=== PATIENT | female | born 1940 | race Caucasian/White ===

== ENCOUNTER → 2017-03-25 | Outpatient (CLI) | payer MEDICARE ==
--- NOTE | 2017-03-25 11:58 | CARD ---
APPROVED REPORT EXAM: Two-dimensional and M-mode echocardiogram with Doppler and color Doppler. Other Information Quality : Average Rhythm : NSR INDICATION Abnormal ECG 2D DIMENSIONS RVDd2.3 (2.9-3.5cm)Left Atrium(2D)3.5 (1.6-4.0cm) IVSd1.2 (0.7-1.1cm)Aortic Root(2D)2.7 (2.0-3.7cm) LVDd4.7 (3.9-5.9cm)LVOT Diameter2.1 (1.8-2.4cm) PWd1.2 (0.7-1.1cm)LVDs2.8 (2.5-4.0cm) FS (%) 39.9 %SV72.9 ml LVEF(%)70.4 (>50%) Aortic Valve AoV Peak Chris.193.1cm/sAoV VTI41.2cm AO Peak GR.14.9mmHgLVOT Peak Chris.139.1cm/s LVOT VTI 30.51cmAO Mean GR.9mmHg NELLIE (VMAX)2.41sv5UXX (VTI)2.46cm2 Mitral Valve MV E Kmrvzpmn357.4cm/sMV DECEL XSOA234ri MV A Qeqvfhtq039.7cm/sMV E Mean Gr.6mmHg MV NLE279otE/A Ratio0.7 MV A [id number] (PHT)2.21cm2 TDI E/Lateral E'23.4E/Medial E'22.4 Pulmonary Valve PV Peak Mqspbzck21.7cm/sPV Peak Grad.3mmHg RVOT VTI13.1cm Tricuspid Valve TR P. Rtxkvpyr453dq/sRAP QXSQMAZM4olPw TR Peak Gr.10dxWpGXIH18klYf LEFT VENTRICLE The left ventricle is normal size. There is borderline concentric left ventricular hypertrophy. Left ventricle systolic function is normal. The Ejection Fraction is 65-70%. There is normal LV segmental wall motion. Tissue Doppler imaging reveals mild left ventricular diastolic dysfunction. RIGHT VENTRICLE The right ventricle is normal size. The right ventricular systolic function is normal. ATRIA The left atrium size is normal. The right atrium size is normal. The interatrial septum is intact wit h no evidence for an atrial septal defect or patent foramen ovale as noted on 2-D or Doppler imaging. AORTIC VALVE The aortic valve is moderately sclerotic. Doppler and Color Flow revealed no significant aortic regur gitation. There is no significant aortic valvular stenosis. MITRAL VALVE Mitral annular calcification is moderate. The mitral valve leaflets are thickened and calcified. The posterior leaflet is not well visualized but appears to be fixed. There is mild mitral valve stenosis . Doppler and Color Flow revealed mild mitral regurgitation. TRICUSPID VALVE The tricuspid valve is normal in structure and function. Doppler and Color Flow revealed mild tricusp id regurgitation. The PA pressure was estimated at 31 mmHg. There is no tricuspid valve stenosis. PULMONIC VALVE Doppler and Color Flow revealed no pulmonic valvular regurgitation. There is no pulmonic valvular gin nosis. GREAT VESSELS The aortic root is normal in size. Normal pulmonary venous flow (Doppler). The IVC is normal in size and collapses >50% with inspiration. PERICARDIAL EFFUSION There is no evidence of significant pericardial effusion. Critical Notification Critical Value: No <Conclusion> There is borderline concentric left ventricular hypertrophy. Left ventricle systolic function is normal. The Ejection Fraction is 65-70%. There is mild mitral valve stenosis. (MG 5.8 mm Hg)
== END | disposition home or self-care (01) ==
LOC: ECHO 09:41
PROVIDERS: ATTEND Internal Medicine Cardiovascular Disease
DX: I08.1 Rheumatic disorders of both mitral and tricuspid valves (principal)
CPT/HCPCS: 93306

== ENCOUNTER → 2017-04-14 | Outpatient (CLI) | payer MEDICARE ==
[2017-04-14] VITALS (12 sets, daily range): BP systolic 84–146; BP diastolic 53–69
[~2017-04-14] VITALS: Ht 172.7 cm; Wt 64.9 kg
[~2017-04-14] MED LIST: AMLO10TA2 PO; ASPI325T4 PO; BIMA2.5D EACHEYE; BRIM5DRO3 OS; CALC-112 PO; CHOL100013 PO; CLOPIDOGREL BISULFATE 75 MG TABLET ONE; CLOPIDOGREL BISULFATE 75 MG TABLET PO ONE; CLOPIDOGREL BISULFATE 75 MG TABLET PO SCH; CONTRAST GIVEN MC PRN; HEPARIN for ARTERIAL LINE 1,500 ML ONE; HEPARIN for IV BOLUS 10,000 UNIT/10 ML VIAL. IV ONE; HEPARIN for IV BOLUS 10,000 UNIT/10 ML VIAL. ONE; IOHEXOL 300 MG/ML 100ML VIAL. IART ONE; IOHEXOL 300 MG/ML 100ML VIAL. ONE; IV NORMAL SALINE 1000ML BAG 1,000 ML IV SCH; LIDOCAINE 1% / SOD BICARB 8.4% 20 ML VIAL. IJ ONE; MIDAZOLAM HCL/PF 5 MG/5 ML VIAL. IV ONE; MIDAZOLAM HCL/PF 5 MG/5 ML VIAL. ONE; RALO60TA PO; SIMV80TA3 PO; TERB250T8 PO; fentaNYL PF VIAL 250 MCG/5 ML VIAL IV ONE; fentaNYL PF VIAL 250 MCG/5 ML VIAL ONE
[2017-04-14 07:29] LABS: BASO % 1 % (0-3); EOS % 1 % (0-3); HEMATOCRIT 43.3 % (36.0-47.0); HEMOGLOBIN 14.4 g/dL (12.0-15.5); LYMPH # 0.7 x10^3/uL (1.0-4.8); LYMPH % 23 % (24-48); MEAN CORPUSCULAR HEMOGLOBIN 31 pg (25-35); MEAN CORPUSCULAR HGB CONC 33 g/dL (31-37); MEAN CORPUSCULAR VOLUME 95 fL (79-100); MONO % 10 % (0-9); NEUT % 65 % (31-73); PLATELET COUNT 187 x10^3/uL (140-400); RED BLOOD COUNT 4.58 x10^6/uL (3.50-5.40); RED CELL DISTRIBUTION WIDTH 14.1 % (11.5-14.5); WHITE BLOOD COUNT 3.2 x10^3/uL (4.0-11.0)
[2017-04-14 07:36] LABS: CALCIUM 9.6 mg/dL (8.5-10.1); CREATININE 0.7 mg/dL (0.6-1.0); GFR 81.8; POTASSIUM 3.2 mmol/L (3.5-5.1)
[2017-04-14 07:38] LABS: INR 0.9 (0.8-1.1); PROTHROMBIN TIME PATIENT 11.9 SEC (11.7-14.0)
--- NOTE | 2017-04-14 11:00 | PDOC ---
MODERATE SEDATION ASSESSMENT RISKS/ALTERNATIVES Risks/Alternatives Risks and alternatives of this type of sedation and procedure discussed with: RISK/ALTERNATIVES: Patient H & P ON CHART H & P H & P on chart and reviewed for co-morbid conditions and appropriate labs. H&P ON CHART: Yes STATUS PREG STATUS ASSESSED: N/A MEDS/ALLERGIES REVIEWED Meds/Allergies Reviewed Medications and Allergies including time and route of recently administered narcotics and sedatives. MEDS/ALLERGIES REVIEWED: Yes ASA RATING ASA RATING: II AIRWAY ASSESSMENT Airway Assessment Airway patency, oral function limitations, presence of caps, crowns, dentures, partials, and ability to extend neck assessed. AIRWAY ASSESSMENT: Yes MALLAMPATI SCORE MALLAMPATI SCORE: II PRE-SEDATION ASSESSMENT PRE-SEDATION ASSESSMENT: Yes EVA DAWSON MD April 14, 2017 11:00
--- NOTE | 2017-04-14 11:02 | PDOC1 ---
History and Physical Date of Procedure Date of Admission 04/14/17 Procedure Procedure Arch + unilateral cervicocephalic angio +/- innominate artery stent placement Indication Indication 76 YO female smoker with known cerebrovascular disease, s/p prior left carotid endarterectomy as well as intracranial aneurysm clipping. Surveillance duplex Doppler and CTA studies revealed significant abnormalities, including severe origin innominate artery calcific stenosis, as well as possible hemodynamically significant, calcific, proximal right ICA stenosis. Diagnostic arteriogram with possible innominate artery stent placement has been requested by Vascular Surgery. Past Medical History Past Medical History See Nursing Pre Procedure PMH Past Surgical History Past Surgical History See Nursing Pre Procedure PSH Current Medications Current Medications Current Medications Sodium Chloride 1,000 ml @ 100 mls/hr Q10H IV Last administered on 04/14/17 08:20; Start 04/14/17 at 07:11; Stop 04/15/17 at 07:10 Iohexol (Omnipaque 300 Mg/ml) 100 ml STK-MED ONCE .ROUTE ; Start 04/14/17 at 07: 48; Stop 04/14/17 at 07:49; Status DC Lidocaine/Sodium Bicarbonate (Buffered Lidocaine 1%) 20 ml STK-MED ONCE IJ ; Start 04/14/17 at 07:49; Stop 04/14/17 at 07:50; Status DC Heparin Sodium/ Sodium Chloride 1,500 ml @ As Directed STK-MED ONCE .ROUTE ; Start 04/14/17 at 07:49; Stop 04/14/17 at 07:50; Status DC Midazolam HCl (Versed) 5 mg STK-MED ONCE .ROUTE ; Start 04/14/17 at 08:14; Stop 04/14/17 at 08:15; Status DC Fentanyl Citrate (Fentanyl 5ml Vial) 250 mcg STK-MED ONCE .ROUTE ; Start at 08:14; Stop 04/14/17 at 08:15; Status DC Heparin Sodium (Porcine) (Heparin Sodium) 10,000 unit STK-MED ONCE .ROUTE ; Start 04/14/17 at 08:27; Stop 04/14/17 at 08:28; Status DC Heparin Sodium/ Sodium Chloride 1,000 unit 1X ONCE IART Last administered on t 10:26; Start 04/14/17 at 08:45; Stop 04/14/17 at 08:46; Status DC Lidocaine/Sodium Bicarbonate (Buffered Lidocaine 1%) 20 ml 1X ONCE IJ Last administered on 04/14/17 10:26; Start 04/14/17 at 08:45; Stop 04/14/17 at 08:46 ; Status DC Midazolam HCl (Versed) 5 mg 1X ONCE IV Last administered on 04/14/17 10:25; Start 04/14/17 at 08:45; Stop 04/14/17 at 08:46; Status DC Fentanyl Citrate (Fentanyl 5ml Vial) 250 mcg 1X ONCE IV Last administered on 10:25; Start 04/14/17 at 08:45; Stop 04/14/17 at 08:46; Status DC Iohexol (Omnipaque 300 Mg/ml) 100 ml 1X ONCE IART Last administered on 10:25; Start 04/14/17 at 08:45; Stop 04/14/17 at 08:46; Status DC Info (Do NOT chart on this entry -- for MONITORING) 1 each PRN DAILY PRN MC SEE COMMENTS; Start 04/14/17 at 08:45; Stop 04/16/17 at 08:44 Heparin Sodium (Porcine) (Heparin Sodium) 5,000 unit 1X ONCE IV Last administered on 04/14/17 10:27; Start 04/14/17 at 10:30; Stop 04/14/17 at 10:31 ; Status DC Clopidogrel Bisulfate (Plavix) 600 mg 1X ONCE PO Last administered on 10:28; Start 04/14/17 at 10:30; Stop 04/14/17 at 10:31; Status DC Clopidogrel Bisulfate (Plavix) 75 mg STK-MED ONCE .ROUTE ; Start 04/14/17 at 10: 23; Stop 04/14/17 at 10:24; Status DC Active Scripts Active Reported Lumigan (Bimatoprost) 2.5 Ml Drops 1 Drop EACHEYE QHS Simvastatin 80 Mg Tablet 80 Mg PO HS Terbinafine Hcl 250 Mg Tablet 1 Tab PO DAILY Vitamin D (Cholecalciferol (Vitamin D3)) 1,000 Unit Capsule 2,000 Unit PO DAILY Citracal + D Er Tablet (Calcium Carb & Cit/Vitamin D3) 1 Each Tablet.er 1 Each PO DAILY Alphagan P (Brimonidine Tartrate) 5 Ml Drops 1 Drop OS BID Aspirin 325 Mg Tablet 1 Tab PO DAILY Evista (Raloxifene Hcl) 60 Mg Tablet 60 Mg PO DAILY Amlodipine Besylate 10 Mg Tablet 10 Mg PO DAILY Allergies Allergies: Coded Allergies: No Known Drug Allergies (Unverified , 04/14/17) Physical Exam Vital Signs Vital Signs Date Time Temp Pulse Resp B/P (MAP) Pulse Ox O2 Delivery O2 Flow Rate FiO2 04/14/17 10:25 16 96 Nasal Cannula 2.0 04/14/17 07:43 98.1 65 84/59 (67) 98.1 Lungs: Clear to auscultation Heart: Regular rate Psych/Mental Status: Mental status NL Vascular +/- right [employer]ICER pulse. 1+ right brachial artery pulse. No right carotid bruit. Diagnostic Data/Imaging Images [facility] arch + selective carotid angio from 2006 reviewed. [facility] carotid duplex Doppler from 03/17/17 reviewed. [facility] CTA neck/head from 03/28/17 reviewed. Assessment Assessment 76 YO smoker with progression in her known cerebrovascular disease. CTA suggests severe to critical calcific narrowing at origin innominate artery. CTA + Duplex Doppler suggests possible significant calcific narrowing at rt carotid bifurcation. Problems: Plan Plan Diagnostic arteriogram (arch + right subclavian artery + right CCA injections) + /- origin innominate artery stenting. EVA DAWSON MD April 14, 2017 11:02
--- NOTE | 2017-04-14 12:59 | RAD ---
Post interventional procedure targeted to the amount artery. Grayscale color Doppler and spectral imaging was performed. Examination was targeted to the right common carotid and right carotid bifurcation. The color Doppler images do not suggest significant turbulence. Moderately heavy plaquing is seen at the carotid bifurcation. The common carotid waveform and velocities are normal. The internal carotid waveform and velocities are also normal. The external carotid has a normal appearance. The vertebral is patent and demonstrates normal directional flow. The subclavian artery is unremarkable. IMPRESSION: Plaquing at the right carotid.. No evidence of hemodynamically significant stenosis. Stenosis 0-50%. Note: Stenosis calculations for CT, MR and conventional angiography are based upon determination of the distal ICA diameter in accordance with the NASCET methodology. Stenosis calculations for doppler studies are derived from validated velocity criteria which are known to correlate with NASCET methodology of determining stenosis.
--- NOTE | 2017-04-14 13:06 | PDOC ---
Exam Manager Proposal Manager Proposal Sita Kennel Attendant Kennel Attendant Orlando Carrington Pre-Procedure Diagnosis Pre-Procedure Diagnosis 76 YO female smoker, with known cerebrovascular disease, s/p left carotid endarterectomy + intracranial aneurysm clipping. 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 Diagnostic arteriogram +/- innominate artery stent placement has been requested by Vascular Surgery. Post-Procedure Diagnosis Post-Procedure Diagnosis See Radiology report. Critical calcific innominate artery stenosis confirmed, followed by stenting. Only mild calcific stenosis at right carotid bifurcation. Due to difficulty crossing right iliac inflow vessels, limited imaging of pelvis was performed. Pre-Mynx SEGAL images of right groin were also performed. Those images revealed severe calcific right KOBY disease + severe right TECHNICAL PLANNER narrowing resulting from very large eccentric calcific plaque occupying majority of TECHNICAL PLANNER lumen. Procedure Performed Procedure Performed Aortic arch + selective right subclavian and CCA injections. Origin innominate artery stent placement. Limited angio pelvis and rt groin. Type of Anesthesia Type of Anesthesia Local + Mod sedation Estimated Blood Loss EBL: 25 cc Condition of Patient Condition of Patient Stable. No apparent complication. No neuro changes. Disposition Disposition May discharge home form [facility] post recovery, if no problems. F/u with Dr Rodrigues. Full report to follow. Rx DAPT for 3 months followed by ASA for life. Have requested a baseline post innominate artery stent duplex Doppler prior to patient discharge. EVA DAWSON MD April 14, 2017 13:06
--- NOTE | 2017-04-15 08:20 | RAD ---
Aortic arch injection with with right subclavian and right common carotid artery injections Origin innominate artery stent placement Indication: 76-year-old smoker with known cerebrovascular disease, status post previous left carotid endarterectomy and previous intracranial aneurysm clipping. Follow-up surveillance duplex Doppler ultrasound and subsequent CTA head and neck revealed findings consistent with severe calcific origin innominate artery stenosis, as well as at least moderate proximal right ICA stenosis. Diagnostic cervicocephalic arteriogram, with probable innominate artery stenting, has been requested by vascular surgery. Fluoroscopy time: 43.1 minutes Kerma-area Product: 197 Gycm2 Contrast material: 150 cc Omnipaque 300 Anesthesia: 116 minutes moderate sedation was provided utilizing a total of 3 mg Versed and 150 mcg fentanyl, IV. The patient was appropriately monitored by a qualified independent observer throughout the time of moderate sedation. Consent: The procedure was explained in its entirety to the patient and/or the patient's designated technical service representative by a member of the treatment team. This included a discussion of risks and benefits and commonly accepted alternatives to the procedure, as well as expected consequences of no treatment at all. Discussion of risks included, but was not limited to, those that are most frequent and those that are rare, but possibly severe or life-threatening, as well as the possibility of unforeseen complications. Sterility: All elements of maximal sterile barrier technique, hand hygiene, skin preparation, and, if ultrasound was used, sterile ultrasound technique were followed. Stenosis calculations for CT, MR and conventional angiography are based upon determination of the distal ICA diameter in accordance with the NASCET methodology. Stenosis calculations for doppler studies are derived from validated velocity criteria which are known to correlate with the NASCET methology of determining stenosis. Procedure: Informed consent was obtained from the patient. She was placed supine on the angiography table. Preliminary ultrasound examination of right groin revealed partial patency of right common femoral artery, which was documented with a single hard copy ultrasound image. Right groin was then prepped and draped in the usual sterile fashion, utilizing all elements of maximal sterile barrier technique, as described above. Moderate sedation was provided with IV Versed and fentanyl. Using aseptic technique, local anesthesia, direct sterile ultrasound guidance, and the micropuncture system, a 5 [place] right common femoral artery sheath was successfully introduced. A 4 [facility] [place] angled glide catheter was then inserted through the right groin sheath and was successfully directed over a Glidewire across severe calcific right common iliac artery disease into abdominal aorta. The angled glide catheter was then removed over a Terumo advantage guidewire, which was positioned with its tip within mid descending thoracic aorta. The 5 [facility] right common femoral artery sheath was then exchanged over the advantage wire for a 6 [facility] [place]ian 65 cm long destination sheath, which was successfully advanced into proximal descending thoracic aorta, utilizing fluoroscopic guidance. Arch injection: A 5 [facility] Omni Flush catheter was advanced through the destination sheath and was positioned within ascending thoracic aorta. Omnipaque 300 was injected and arch DSA images were obtained in the ZACHARY projection. 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 There is no aortic dissection or aneurysm. Origins of left subclavian artery and left common carotid artery from aortic arch are widely patent. Extensive calcific plaquing produces severe narrowing of innominate artery origin of greater than 90%, with poststenotic dilatation. Left subclavian artery appears widely patent, with brisk, antegrade flow within large caliber left vertebral artery. Left common carotid artery is also widely patent, as is visualized postoperative proximal left ICA. There is sluggish antegrade flow within patent right subclavian and common carotid arteries. Right vertebral artery is not well seen. Innominate artery stent placement: A 5 [facility] Velarde 2 catheter was inserted through the destination sheath, and was very carefully advanced over a Glidewire across the severe, calcific origin innominate artery stenosis into proximal right subclavian artery. The Glidewire was then exchanged for a Terumo advantage guidewire, which was successfully advanced peripherally into mid right brachial artery, utilizing fluoroscopic control. The Velarde 2 catheter was then removed over the advantage guidewire. A 4 mm x 40 mm Cordis extreme PERIANESTHESIA RN balloon was then advanced through the destination sheath over the advantage wire, and was utilized to perform preliminary balloon dilatation of proximal innominate artery to a peak pressure of 15 porter. The 4 mm PERIANESTHESIA RN balloon was then exchanged for a 7 mm x 29 mm Cordis Mary balloon expandable stent, which was advanced over the advantage wire and was very carefully positioned and deployed across the densely calcific innominate artery origin stenosis. Post dilatation of this stent was then performed initially utilizing an 8 mm x 40 mm Powerflex PERIANESTHESIA RN balloon, inflated to a peak pressure of 12 porter. Final post dilatation of proximal end of the stent was then performed utilizing a 10 mm x 20 mm Powerflex PERIANESTHESIA RN balloon, inflated to a peak pressure of [address] [facility] Omni Flush catheter was reintroduced into ascending thoracic aorta. Omnipaque 300 was injected and post stent arch DSA images were obtained. Those images revealed significant angiographic improvement in caliber of innominate artery, with now brisk antegrade flow through right subclavian and common carotid arteries. Right subclavian artery injection: A 5 [facility] H1 catheter was advanced over a Glidewire through the innominate artery stent into left subclavian artery. Omnipaque 300 was injected and DSA images were obtained. Findings: No significant right subclavian artery stenosis is demonstrated. Patent right vertebral artery is now well visualized, post innominate artery stenting, and shows normal antegrade flow. Right axillary artery and visualized proximal right brachial artery are widely patent. Right CCA injection: The 5 [facility]ian H1 catheter was then carefully advanced into distal right common carotid artery over a Glidewire. Omnipaque 300 was injected and cervical DSA images were obtained in lateral and SEGAL projections, followed by intracranial DSA images in AP and lateral projections. Findings: Eccentric, calcific plaquing at right carotid bifurcation produces only mild, 20-30% narrowing at distal right CCA and ICA origin. Cervical right ICA is otherwise widely patent. No significant narrowing is identified within petrous, cavernous, or supraclinoid right ICA. Intracranial images revealed brisk and satisfactory contrast opacification of right middle and anterior cerebral arteries, without major vessel occlusion. Postoperative changes of previous aneurysm clipping are noted. No new aneurysm is seen. Patient tolerated procedure well without apparent complication. Hemostasis was achieved at the right groin puncture site utilizing the Mynx closure system. Baseline post innominate artery stent right carotid duplex Doppler ultrasound was obtained in CV observation, prior to patient discharge. Impression: 1. 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 2. Widely patent right subclavian artery, with quaker of normal antegrade flow within right vertebral artery, following innominate artery stenting. 3. Eccentric calcific plaquing produces only mild, 20-30% stenosis at right carotid bifurcation. 4. Postoperative changes of previous intracranial aneurysm clipping are noted. No new aneurysm was demonstrated within right anterior intracranial circulation. 5. A baseline post innominate artery stent placement right carotid duplex Doppler ultrasound was performed prior to patient discharge, and was compared to the recent [facility] carotid Doppler done 03/17/2017. There has been significant interval improvement in Doppler waveforms and velocities within right common and internal carotid arteries, as well as quaker of normal antegrade flow within right vertebral artery.
== END | disposition home or self-care (01) ==
LOC: INTRAD 06:51
PROVIDERS: ATTEND Surgery Vascular Surgery
DX: I65.23 Occlusion and stenosis of bilateral carotid arteries (principal); F17.200 Nicotine dependence, unspecified, uncomplicated; I73.9 Peripheral vascular disease, unspecified; Z96.642 Presence of left artificial hip joint; Z72.89 Other problems related to lifestyle
CPT/HCPCS: 36223; 36225; 36415; 37236; 76937; 80048; 85027; 85610; 93882; C1713; C1758; C1760; C1769; C1892; C1894; J2250; J3010; J7030; Q9967; G0269

== ENCOUNTER 2018-12-12 08:01 | Outpatient (CLI) | payer MEDICARE ==
[~2018-12-12] VITALS: Ht 170.2 cm; Wt 62.6 kg
[2018-12-12] VITALS (15 sets, daily range): BP systolic 93–167; BP diastolic 48–71
[~2018-12-12 08:01] MED LIST changes: -AMLO10TA2 PO; +AMLO10TA8 PO; -ASPI325T4 PO; +ASPI325T8 PO; -CLOPIDOGREL BISULFATE 75 MG TABLET ONE; -CLOPIDOGREL BISULFATE 75 MG TABLET PO ONE; -CLOPIDOGREL BISULFATE 75 MG TABLET PO SCH; -CONTRAST GIVEN MC PRN; -HEPARIN for ARTERIAL LINE 1,500 ML ONE; -HEPARIN for IV BOLUS 10,000 UNIT/10 ML VIAL. IV ONE; -HEPARIN for IV BOLUS 10,000 UNIT/10 ML VIAL. ONE; -IOHEXOL 300 MG/ML 100ML VIAL. IART ONE; -IOHEXOL 300 MG/ML 100ML VIAL. ONE; -IV NORMAL SALINE 1000ML BAG 1,000 ML IV SCH; -LIDOCAINE 1% / SOD BICARB 8.4% 20 ML VIAL. IJ ONE; -MIDAZOLAM HCL/PF 5 MG/5 ML VIAL. IV ONE; -MIDAZOLAM HCL/PF 5 MG/5 ML VIAL. ONE; +SIMV80TA17 PO; -SIMV80TA3 PO; +TERB250T11 PO; -TERB250T8 PO; -fentaNYL PF VIAL 250 MCG/5 ML VIAL IV ONE; -fentaNYL PF VIAL 250 MCG/5 ML VIAL ONE
[2018-12-12 08:32] LABS: HEMATOCRIT 41.8 % (36.0-47.0); HEMOGLOBIN 14.6 g/dL (12.0-15.5); RED BLOOD COUNT 4.68 x10^6/uL (3.50-5.40); RED CELL DISTRIBUTION WIDTH 15.4 % (11.5-14.5); WHITE BLOOD COUNT 4.5 x10^3/uL (4.0-11.0)
[2018-12-12 08:43] LABS: CALCIUM 9.4 mg/dL (8.5-10.1); CREATININE 0.8 mg/dL (0.6-1.0); GFR 69.7; POTASSIUM 3.8 mmol/L (3.5-5.1)
[2018-12-12 08:45] LABS: PROTHROMBIN TIME PATIENT 12.9 SEC (11.7-14.0)
[2018-12-12] MEDS ORDERED: CLOP75TA PO (08:51)
[2018-12-12] MEDS ORDERED: HEPARIN for ARTERIAL LINE 1,500 ML ONE (09:39)
[2018-12-12] MEDS ORDERED: LIDOCAINE 1% Multi-Dose 20 ML VIAL. ONE (09:39)
[2018-12-12] MEDS ORDERED: IODIXANOL 320 MG/ML 100 ML VIAL. ONE (09:39)
[2018-12-12] MEDS ORDERED: MIDAZOLAM HCL/PF 5 MG/5 ML VIAL. ONE (09:56)
[2018-12-12] MEDS ORDERED: fentaNYL PF VIAL 250 MCG/5 ML VIAL ONE (09:56)
[2018-12-12] MEDS ORDERED: HEPARIN for IV BOLUS 10,000 UNIT/10 ML VIAL. ONE (10:07)
[2018-12-12] MEDS: IODIXANOL 320 MG/ML 100 ML VIAL. IART ONE (11:52)
[2018-12-12] MEDS: fentaNYL PF VIAL 250 MCG/5 ML VIAL IV ONE (11:53)
[2018-12-12] MEDS: MIDAZOLAM HCL/PF 5 MG/5 ML VIAL. IV ONE (11:53)
[2018-12-12] MEDS: HEPARIN for IV BOLUS 10,000 UNIT/10 ML VIAL. IV ONE (11:54)
--- NOTE | 2018-12-12 14:14 | CARD ---
MR#: [id number] Date of Study: 12/12/2018 Ordering Physician: SANYA DELONG, Referring Physician: SANYA DELONG, Tech: RT Trever (R) APPROVED REPORT Patient StatusOUT-PATIENT Jewel Sawyer: RT Trever (R) Procedure(s) performed: 90 MIN MODERATE SEDATION Supravalvular Aortogram Right subclavian angiography Aortogram with bilateral peripheral run-off. HISTORY The patient is a 78 year-old female with a history of : peripheral vascular disease. INDICATION FOR PROCEDURE The indication(s) include : Bilateral claudication. PROCEDURE NARRATIVE INDICATION: Bilateral right greater than left claudication with known history of PAD. CONSENT: After explaining the risks and benefits of the procedure and alternatives, informed consent was obtai сергей. The patient was brought electively to the cardiac catheterization lab in a fasting state. A jay eout was performed confirming the patient's name, date of , procedure, and site of procedure. A ll necessary personnel were wearing the appropriate protective equipment and radiation monitor device s. (See nursing notes for medications administered). The right groin was sterilely prepped and drap ed in the usual fashion. ACCESS: The left groin was infiltrated with 10 mL of 2% lidocaine for subcutaneous anesthesia. Next, a 5Fr sh eath was placed in the LCFA via the modified Seldinger Technique. DIAGNOSTIC ANGIOGRAPHY: Next, advancement of a JR4 guide catheter was difficult due to a very tortuous left common iliac and external iliac vessels. Therefore, a Glidewire was used to navigate the tortuosity and ultimately a J R4 catheter was placed in the ascending aorta. Next, selective angiography of the right innominate ar roxie stent was performed. Due to the stent protruding partially into the aortic lumen and due to the crushing of the stent near the proximal segment with deformation it was difficult to obtain a true se lective angiogram. Nonetheless digital subtraction angiography was performed with adequate images. [place] bsequently, a pigtail catheter was placed in the descending aorta and aortography was performed. Atte mpts to cross over to the right common iliac artery were extremely difficult. A crossover catheter, O mni Flush catheter as well as a SOS catheter were unable to selectively engage the vessel. Ultimately , a pro-water wire was able to be free wired into the right common femoral artery. Attempts to advanc e a 4 Romansh angled glide catheter were unsuccessful. Ultimately, a Glidewire was able to be placed i n the right common femoral artery. Unfortunately, despite manipulation a 0.[address] was also unable to be advanced distally. There was likely critical stenosis involving the right c ommon iliac which actually caused difficulty with removal of the catheter. Finally, multiple Dsa imag es were obtained with a pigtail catheter placed just above the iliac bifurcation and a runoff was per formed to the ankle level. FINDINGS: *The entire aortic vascular tree is heavily calcified and tortuous. Right inominate artery: There is a prior stent that appears deformed, likely crushed or fractured wit h approximately 90% stenosis. Abdominal aorta: No significant disease with distal small, less than 4 mm in size. RCIA: Severe calcified 95% stenosis with severe post-stenotic dilation. REIA: Heavily calcifed with 70% stenosis. RCFA: Heavily calcified with 80% stenosis. RSFA: Distal SFA with heavily calcified 80% stenosis. RPOP: Heavily calcified 80% stenosis. RTP trunk: No significant disease. RATA: No significant disease. LCIA: Severe tortuosity with 40-50% stenosis. CELESTE: No significant disease. LCFA: Heavily calcified with 80% stenosis. LSFA: Distal SFA with heavily calcified 80% stenosis. LPOP: Heavily calcified 80% stenosis. LTP trunk: No significant disease. RAUL: No significant disease. Conclusion 1. Severe PAD with near occluded right innominate artery stent. 2. Severe right common iliac, right and left MANAGER AEROSPACE and SFA/POP disease. Recommendations -Will discuss with vascular surgery regarding treatment of lower extremity claudication and right sub clavian steal. -She would likely best benefit from endovascular treatment of the right iliac disease with bilateral MANAGER AEROSPACE endarterectomies and consideration of future SFA/POP treatment prn. -Currently asymptomatic from right inominate artery disease, continue medical mgmt. -Discussed smoking sessation and aggressive medical therapy. Signed by : Sanya Delong, Electronically Approved : 12/12/2018 14:12:24
--- NOTE | 2018-12-12 17:05 | NUR ---
Discharge Note: FIORDALIZA PRICE Discharge instructions and discharge home medications reviewed with Patient and a copy given. All questions have been answered and understanding verbalized. Dressing clean, dry, and intact. Pt denies pain. The following instructions and handouts were given: angiography, CAD, post moderate sedation, groin site care. Discontinued lines and drains: peripheral IV Patient discharged to home with friend via private vehicle .
== END 2018-12-12 17:00 | disposition home or self-care (01) ==
LOC: CCL 08:01
PROVIDERS: ATTEND Internal Medicine Cardiovascular Disease
DX: I70.213 Atherosclerosis of native arteries of extremities with intermittent claudication, bilateral legs (principal)
CPT/HCPCS: 36215; 36415; 75630; 75710; 80048; 85027; 85347; 85610; 99152; 99153; C1769; C1887; C1892; J1644; J2250; J3010; Q9967; 93567

== ENCOUNTER 2019-08-06 17:44 | Inpatient (IN) | payer MEDICARE ==
[~2019-08-06] VITALS: Ht 170.2 cm; Wt 69.4 kg
[~2019-08-06 17:44] MED LIST changes: +ASPI-630 PO; +CLOP75TA PO
[2019-08-06 23:30] VITALS: BP 121/72
[2019-08-06 23:45] VITALS: BP 134/81
[2019-08-06 23:59] VITALS: BP 139/84
[2019-08-07] VITALS (25 sets, daily range): BP systolic 91–139; BP diastolic 24–85
[2019-08-07] MEDS ORDERED: HYDROcodone/APAP 5/325MG 1 TAB TABLET PO PRN (00:30)
[2019-08-07] MEDS ORDERED: ALBUTEROL SULFATE 2.5 MG/3 ML NEBU. NEB PRN (00:30)
[2019-08-07] MEDS: ACETAMINOPHEN 325 MG TABLET. PO PRN ×2 (01:56→13:11)
[2019-08-07] MEDS ORDERED: FLU VAX QS 2019-20 (36MOS+)/PF 0.5 ML SYRINGE. VAX IM ONE (02:00)
[2019-08-07] MEDS ORDERED: ATORVASTATIN CALCIUM 40 MG TABLET. PO ONE (02:00)
[2019-08-07] MEDS ORDERED: methylPREDNISolone SOD SUCC PF 40 MG/ML VIAL. IV SCH (06:00)
[2019-08-07 07:38] LABS: ALBUMIN 2.6 g/dL (3.4-5.0); ALBUMIN/GLOBULIN RATIO 0.8 (1.0-1.7); CREATININE 0.9 mg/dL (0.6-1.0); GFR 60.9; MAGNESIUM 1.8 mg/dL (1.8-2.4); TOTAL BILIRUBIN 0.2 mg/dL (0.2-1.0); TOTAL PROTEIN 5.7 g/dL (6.4-8.2)
[2019-08-07] MEDS: IPRATRPIUM/ALBUTEROL 0.5/2.5MG 3 ML NEBU. NEB SCH ×4 (07:39→19:00)
[2019-08-07] MEDS: amLODIPine BESYLATE 10 MG TABLET PO SCH (08:33)
[2019-08-07] MEDS: CALCIUM CARB/VIT D3 500/200 TABLET. PO SCH (08:33)
[2019-08-07] MEDS: ASPIRIN CHEWABLE 81 MG TABLET. PO SCH (08:33)
[2019-08-07] MEDS: BRIMONIDINE 0.2% OPHTH SOLUTION 5ML BOTTLE. OS SCH ×2 (08:34→21:16)
[2019-08-07] MEDS: NICOTINE 14MG PATCH. TD SCH (08:34)
--- NOTE | 2019-08-07 08:55 | PDOC2 ---
ELLY MAJANO KITCHEN MECHANIC 08/07/19 0854: CARDIAC CONSULT DATE OF CONSULT Date of Consult DATE: 08/07/19 TIME: 08:42 REASON FOR CONSULT Reason for Consult: Pulmonary edema REFERRING PHYSICIAN Referring Physician: CHF SOURCE Source: Chart review, Patient HISTORY OF PRESENT ILLNESS HISTORY OF PRESENT ILLNESS This is a 78 yo female admitted for complains of leg swelling and weakness. Reports that she just got discharged from rehab about 3-4 weeks ago and lives alone. No falls or any recent injury. Her legs have been progressively getting weak and swollen in the last 3 days. Also + for HAN. She has COPD and CAD and continues to smoke tobacco. Denies any palpitations nor chest pain. Reports no nausea or vomiting. BP has been controlled so far and tells me that her Na intake is controlled and no over hydration. She does drink small amount of bourbon every night. PAST MEDICAL HISTORY Cardiovascular: CAD, HTN, Hyperlipidemia, Aortic stenosis, Other (PAD LE and carotids) Pulmonary: Asthma, COPD CENTRAL NERVOUS SYSTEM: Other (SAHIL aneurysm repair) Heme/Onc: Anemia NOS (requiring transfusion) Psych: No pertinent hx Musculoskeletal: Osteoarthritis ENT: Other (glaucoma) Renal/: No pertinent hx Endocrine: Osteopenia Dermatology: No pertinent hx PAST SURGICAL HISTORY Past Surgical History Bilateral femoral endarterectomies 05/2019, right groin debridement with sartorius muscle flap coverage 06/08, subclavian artery stent placement Past Surgical History: Appendectomy, Tonsillectomy, Other (left carotid endarterectomy; anterior cerebral aneurysm repair) FAMILY HISTORY Family History noncontributory SOCIAL HISTORY Smoke: No ALCOHOL: none Lives: Senior Living CURRENT MEDICATIONS CURRENT MEDICATIONS Current Medications Medications (Trade) Dose Ordered Sig/Melissa Route PRN Reason Start Time Stop Time Status Last Admin Dose Admin Amlodipine Besylate (Norvasc) 10 mg DAILY PO 08/07/19 09:00 08/07/19 08:34 Aspirin (Children'S Aspirin) 81 mg DAILY PO 08/07/19 09:00 08/07/19 08:34 Brimonidine Tartrate (Alphagan) 1 drop BID OS 08/07/19 09:00 08/07/19 08:34 Calcium/Vitamin D (Oscal D 500mg/ 200uts) 1 tab DAILYWBKFT PO 08/07/19 08:00 08/07/19 08:34 Levofloxacin/ Dextrose 100 ml @ 100 mls/hr QHS IV 08/07/19 01:00 08/07/19 01:09 Acetaminophen (Tylenol) 650 mg PRN Q6HRS PRN PO MILD PAIN / TEMP 08/07/19 00:30 08/07/19 02:01 Methylprednisolone Sodium Succinate (SOLU-Medrol 40MG VIAL) 60 mg Q8HRS IV 08/07/19 06:00 08/07/19 05:53 Albuterol/ Ipratropium (Duoneb) 3 ml RTQID NEB 08/07/19 08:00 08/07/19 07:39 Furosemide (Lasix) 40 mg DAILY IVP 08/07/19 09:00 08/07/19 08:34 Atorvastatin Calcium (Lipitor) 40 mg 1X ONCE PO 08/07/19 02:00 08/07/19 02:01 DC 08/07/19 02:01 Nicotine (Nicoderm Cq 14mg) 1 patch DAILY TD 08/07/19 07:00 08/07/19 08:34 ALLERGIES ALLERGIES: Coded Allergies: egg (Verified Allergy, Intermediate, Swelling, 07/05/19) SWELLING IN EYES ROS Review of System 14 point ROS evaluated with pertinent positives noted per HPI PHYSICAL EXAM General: Alert, Oriented X3, Cooperative, mild distress HEENT: Atraumatic, Mucous membr. moist/pink Lungs: Other (upper wheeze, basilar crackles) Heart: Regular rate (SR with WAP), Other (4/6 systolic murmur to MARTELL border; diastolic murmur to apical region 5/6) Abdomen: Soft, No tenderness Extremities: No cyanosis, Other (2-3+ bilateral LE pitting edema) Skin: No breakdown, No significant lesion Neuro: Normal speech, Sensation intact Psych/Mental Status: Mental status NL, Mood NL MUSCULOSKELETAL: Osteoarthritic changes both hands VITALS/I&O VITALS/I&O: Vital Signs Date Time Temp Pulse Resp B/P (MAP) Pulse Ox O2 Delivery O2 Flow Rate FiO2 08/07/19 08:34 86 127/67 08/07/19 08:00 97.6 18 91 Nasal Cannula 5.0 97.6 I & O 08/06/19 08/06/19 08/07/19 15:00 23:00 07:00 Intake Total 220 ml Output Total 340 ml Balance -120 ml LABS Lab: Laboratory Tests Test 08/07/19 06:35 Sodium Level 142 mmol/L (136-145) Potassium Level 4.0 mmol/L (3.5-5.1) Chloride Level 103 mmol/L (98-107) Carbon Dioxide Level 35 mmol/L (21-32) H Anion Gap 4 (6-14) L Blood Urea Nitrogen 19 mg/dL (7-20) Creatinine 0.9 mg/dL (0.6-1.0) Estimated GFR (Cockcroft-Gault) 60.9 BUN/Creatinine Ratio 21 (6-20) H Glucose Level 142 mg/dL (70-99) H Calcium Level 9.0 mg/dL (8.5-10.1) Magnesium Level 1.8 mg/dL (1.8-2.4) Total Bilirubin 0.2 mg/dL (0.2-1.0) Aspartate Amino Transferase (AST) 20 U/L (15-37) Alanine Aminotransferase (ALT) 14 U/L (14-59) Alkaline Phosphatase 75 U/L (46-116) Total Protein 5.7 g/dL (6.4-8.2) L Albumin 2.6 g/dL (3.4-5.0) L Albumin/Globulin Ratio 0.8 (1.0-1.7) L Laboratory Tests 08/07/19 06:35 ECHOCARDIOGRAM ECHOCARDIOGRAM <Conclusion> There is mild to moderate concentric left ventricular hypertrophy. The left ventricular systolic function is normal and the ejection fraction is within normal range. The Ejection Fraction is 50-55%. There is normal LV segmental wall motion. The aortic valve is calcified and displays decreased opening. There is no significant aortic valvular stenosis. Mitral annular calcification is moderate to severe. Doppler and Color-flow revealed trace mitral regurgitation. DATE: 06/27/19 7999 ASSESSMENT/PLAN ASSESSMENT/PLAN 1. Acute on chronic diastolic CHF: multifactorial with COPD and valvular disease 2. Valvular disease: mitral valve and aortic valve calcifications 3. COPD with continued tobaccoism: no maintenance regimen 4. CAD 5. PAD 6. HTN: controlled 7. HLP 8. Chronic anemia 9. Hx of SAHIL aneurysm repair 10. WAP Recommendations 1. Lasix therapy. 2. Currently CP free but could not completely rule out occult ischemia. Will check trop. At this time continue to treat medically and will consider for stress test. 3. Continue with secondary prevention measures. 4. Smoking cessation SANYA DELONG MD 08/08/19 1814: CARDIAC CONSULT ASSESSMENT/PLAN ASSESSMENT/PLAN Late entry for 08/07/2019 Pt. seen and examined. Agree with above FLEET ADMINISTRATIVE ASSISTANT note. Discussed with Dr. Garrett. Multifactorial heart failure, diastolic and diet related probably. Will plan for diuresis, if unable to tolerate, plan for thoracentesis. ELLY MAJANO APRN Aug 07, 2019 08:54 SANYA DELONG MD Aug 08, 2019 18:14
[2019-08-07] MEDS ORDERED: PANT20TA2 PO (08:56)
[2019-08-07] MEDS ORDERED: FUROSEMIDE 40 MG/4 ML VIAL. IVP SCH (09:00)
[2019-08-07] MEDS: PANTOPRAZOLE 40 MG TABLET.DR. PO SCH (09:17)
[2019-08-07] MEDS: LACTOBACILLUS RHAMNOSUS GG 1 CAPSULE. PO SCH ×2 (09:17→21:15)
[2019-08-07 09:35] LABS: CHOLESTEROL/HDL RATIO 1.5
[2019-08-07 12:24] LABS: HEMATOCRIT 32.1 % (36.0-47.0); HEMOGLOBIN 10.3 g/dL (12.0-15.5); RED BLOOD COUNT 3.39 x10^6/uL (3.50-5.40); WHITE BLOOD COUNT 2.9 x10^3/uL (4.0-11.0)
--- NOTE | 2019-08-07 14:18 | CONS ---
DATE OF CONSULTATION: PULMONARY CONSULTATION ATTENDING PHYSICIAN: Dr. Brown. REASON FOR CONSULTATION: Respiratory failure. HISTORY OF PRESENT ILLNESS: The patient is a 78-year-old, who has history of tobacco use and continues to smoke a few cigarettes a day. She has history of left ventricular hypertrophy and diastolic heart failure. She came into the hospital with increased leg swelling. The patient also appeared to be dyspneic. She was requiring up to 6 liters of oxygen. Her chest x-ray was reviewed and is consistent with congestive heart failure with bilateral pleural effusion and interstitial markings. The patient did receive Lasix; however, her latest blood pressure in the high 80s. She denies any cough. No headaches. No chest pain. No nausea, vomiting, or diarrhea. I have been asked to see her for further evaluation. Her previous echocardiogram has shown normal ejection fraction, but evidence of left ventricular hypertrophy and mitral annular calcification is moderate to severe. PAST MEDICAL HISTORY: Significant for history of coronary artery disease, hypertension, hyperlipidemia, aortic stenosis, chronic obstructive pulmonary disease with ongoing tobaccoism, history of anterior cerebral artery aneurysm repair, anemia, osteoarthritis, and osteopenia. PAST SURGICAL HISTORY: Bilateral femoral endarterectomies, right groin debridement, appendectomy, and tonsillectomy. FAMILY HISTORY: Noncontributory to lungs. SOCIAL HISTORY: Ongoing tobacco use for at least 35-40 years. REVIEW OF SYSTEMS: Twelve-point system obtained. Pertinent positives discussed in my history of present illness, otherwise noncontributory. All systems that were negative were reviewed as well. MEDICATIONS: All reviewed as listed in the MRAD. PHYSICAL EXAMINATION: VITAL SIGNS: Reviewed; blood pressures stable initially, now in the mid 80s; pulse oximetry is 95% on 6 liters; afebrile. HEENT: Sclerae anicteric. NECK: Supple. LUNGS: With diminished breath sounds at the bases. CARDIOVASCULAR: With a regular rate. ABDOMEN: Soft. EXTREMITIES: With 2+ pitting edema bilaterally. LABORATORY DATA: Reviewed; BUN 19, creatinine 0.9. CBC is not available. IMPRESSION: 1. Acute hypoxic respiratory failure secondary to acute on chronic diastolic heart failure. 2. Abnormal chest x-ray with bilateral pleural effusion and interstitial markings consistent with congestive heart failure. 3. Abnormal echocardiogram with left ventricular hypertrophy and [id number] mitral calcification. 4. Suspected underlying chronic obstructive pulmonary disease could be severe. RECOMMENDATIONS: 1. Discussed with RN. Continue present oxygen. 2. Need to do cautious diuresis in the setting of low blood pressure; may have to hold her amlodipine. 3. Follow chest x-ray and if there is no improvement, consider thoracentesis to improve her hypoxia. 4. P.r.n. bronchodilators. 5. Taper steroids. The symptoms are not related to chronic obstructive pulmonary disease exacerbation. 6. Antibiotic can be deescalated soon. 7. Discussed with RN and we will follow along with you. WESTON LOWERY MD DR: YANDEL/serafin JOB#: [id number] / [id number]
[2019-08-07] MEDS: methylPREDNISolone SOD SUCC PF 40 MG/ML VIAL. IV SCH ×2 (15:07→21:15)
[2019-08-07] MEDS: FUROSEMIDE 40 MG/4 ML VIAL. IVP SCH ×2 (16:00→21:14)
--- NOTE | 2019-08-07 21:00 | HP ---
ADMIT DATE: 08/07/2019 CHIEF COMPLAINT: Shortness of breath, leg swelling, weakness. HISTORY OF PRESENT ILLNESS: The patient is a pleasant 78-year-old female, well known to our service. She has multiple health issues. She is still smoking, has COPD, has heart failure. Once again presented with shortness of breath and weakness. Seems to be in heart failure and with concomitant COPD exacerbation. I discussed the case with the ER physician at [facility] where she originally presented to. She has now been transferred to our facility where she is being examined in the ICU. PAST MEDICAL HISTORY: Noncompliance, COPD, CHF, continued tobacco abuse, hypertension, hyperlipidemia, aortic stenosis, peripheral vascular disease, carotid disease, asthma, aneurysm repair, anemia, osteoarthritis, glaucoma, osteopenia. ALLERGIES: EGGS. FAMILY HISTORY: Coronary disease. SOCIAL HISTORY: She still smokes. No drinking or drugs. I believe she lives at a facility. MEDICATIONS: Reviewed, please refer to the MRAD. REVIEW OF SYSTEMS: GENERAL: No history of weight change or fevers. She complains of weakness. SKIN: No bruising, hair changes or rashes. EYES: No blurred, double or loss of vision. NOSE AND THROAT: No history of nosebleeds, hoarseness or sore throat. HEART: No history of palpitations, chest pain or shortness of breath on exertion. LUNGS: Denies cough, hemoptysis, wheezing. She complains of shortness of breath. GASTROINTESTINAL: Denies changes in appetite, nausea, vomiting, diarrhea or constipation. GENITOURINARY: No history of frequency, urgency, hesitancy or nocturia. NEUROLOGIC: Denies history of numbness, tingling, tremor or weakness. PSYCHIATRIC: No history of panic, anxiety or depression. ENDOCRINE: No history of heat or cold intolerance, polyuria or polydipsia. EXTREMITIES: Denies muscle weakness, joint pain, pain on walking or stiffness. PHYSICAL EXAMINATION: VITALS: Within normal limits and are stable. GENERAL: No apparent distress. Alert and oriented. HEENT: Head is normocephalic, atraumatic, pupils were equally round and reactive to light and accommodation. NECK: Supple, no JVD, no thyromegaly was noted. LUNGS: Clear to auscultation in all lung armstrong without rhonchi or wheezing. She has diffuse crackles. HEART: RRR, S1, S2 present. Peripheral pulses intact. She has systolic ejection murmur, intermittently tachycardic. ABDOMEN: Soft, nontender. Positive bowel sounds no organomegaly, normal bowel sounds. EXTREMITIES: Without any cyanosis, clubbing, or edema. Pedal pulses intact, Homans sign is negative. NEUROLOGIC: Normal speech, normal tone. A & O x3, moves all extremities, no obvious focal deficits. She is extremely weak. PSYCHIATRIC: She is depressed. SKIN: No ulcerations or rashes, good skin turgor, no jaundice. VASCULAR: Good capillary refill, neurovascular bundle appears to be intact. LABORATORY DATA: White count 2.9, hemoglobin 10.3, platelets 249. Electrolytes are normal other than an anion gap of 400, CO2 level of 35, glucose is 142. Troponin is 0. BNP level is pending. Chest x-ray is pending. ASSESSMENT AND PLAN: Acute on chronic systolic and diastolic heart failure with respiratory failure, chronic obstructive pulmonary disease, probable early failure to thrive. The patient has been admitted. We will consult Pulmonary and Cardiology. DuoNebs, O2 per nasal cannula, consider steroids, IV Lasix, ICU monitoring, DVT prophylaxis, full code. 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 LAURA ARCE DO DR: KALIA/serafin JOB#: [id number] / [id number]
[2019-08-07] MEDS: ATORVASTATIN CALCIUM 40 MG TABLET. PO SCH (21:15)
[2019-08-07] MEDS: LATANOPROST 0.005% OPHTH SOLUTION 2.5ML BOTTLE. OU SCH (21:16)
[2019-08-08] VITALS (20 sets, daily range): BP systolic 91–119; BP diastolic 52–79
[2019-08-08 03:55] LABS: BASO % 0 % (0-3); EOS % 0 % (0-3); HEMATOCRIT 30.1 % (36.0-47.0); HEMOGLOBIN 9.8 g/dL (12.0-15.5); LYMPH # 0.2 x10^3/uL (1.0-4.8); LYMPH % 3 % (24-48); MEAN CORPUSCULAR HEMOGLOBIN 31 pg (25-35); MEAN CORPUSCULAR HGB CONC 33 g/dL (31-37); MEAN CORPUSCULAR VOLUME 94 fL (79-100); MONO # 0.2 x10^3/uL (0.0-1.1); MONO % 2 % (0-9); NEUT # 7.5 x10^3/uL (1.8-7.7); NEUT % 95 % (31-73); PLATELET COUNT 225 x10^3/uL (140-400); RED BLOOD COUNT 3.22 x10^6/uL (3.50-5.40); RED CELL DISTRIBUTION WIDTH 17.1 % (11.5-14.5); WHITE BLOOD COUNT 7.8 x10^3/uL (4.0-11.0)
[2019-08-08 04:26] LABS: % MONOS 1 % (0-10); % SEGS 99 % (35-66); ANISOCYTOSIS SLIGHT; PLT ESTIMATE ADEQUATE (ADEQUATE)
[2019-08-08] MEDS: methylPREDNISolone SOD SUCC PF 40 MG/ML VIAL. IV SCH ×3 (06:17→23:07)
[2019-08-08] MEDS: BRIMONIDINE 0.2% OPHTH SOLUTION 5ML BOTTLE. OS SCH ×2 (08:25→20:54)
[2019-08-08] MEDS: PANTOPRAZOLE 40 MG TABLET.DR. PO SCH (08:26)
[2019-08-08] MEDS: ASPIRIN CHEWABLE 81 MG TABLET. PO SCH (08:26)
[2019-08-08] MEDS: amLODIPine BESYLATE 10 MG TABLET PO SCH (08:26)
[2019-08-08] MEDS: CALCIUM CARB/VIT D3 500/200 TABLET. PO SCH (08:26)
[2019-08-08] MEDS: LACTOBACILLUS RHAMNOSUS GG 1 CAPSULE. PO SCH ×2 (08:26→20:55)
[2019-08-08] MEDS: NICOTINE 14MG PATCH. TD SCH (08:27)
[2019-08-08] MEDS: FUROSEMIDE 40 MG/4 ML VIAL. IVP SCH ×2 (08:27→12:00)
--- NOTE | 2019-08-08 09:30 | PDOC ---
ELLY MAJANO FOIL OPERATOR 08/08/19 0930: CARDIO Progress Notes Date and Time Date of Service 08/08/2019 Time of Evaluation 0850 Subjective Subjective: No Chest Pain, No Palpitations, No Dizziness, Other (SOA much better, sitting up in bed and eating breakfast without difficulty) Vitals Vitals Vital Signs Date Time Temp Pulse Resp B/P (MAP) Pulse Ox O2 Delivery O2 Flow Rate FiO2 08/08/19 08:28 82 117/69 08/08/19 08:00 97.9 18 90 Nasal Cannula 5.0 97.9 Weight Weight [ ] Input and Output Intake and Output Intake and Output 08/08/19 06:59 Intake Total 580 ml Output Total 1355 ml Balance -775 ml Intake Oral 580 ml Output Urine Total 1355 ml Laboratory Labs Laboratory Tests Test 08/08/19 03:45 White Blood Count 7.8 x10^3/uL (4.0-11.0) Red Blood Count 3.22 x10^6/uL (3.50-5.40) Hemoglobin 9.8 g/dL (12.0-15.5) Hematocrit 30.1 % (36.0-47.0) Mean Corpuscular Volume 94 fL (79-100) Mean Corpuscular Hemoglobin 31 pg (25-35) Mean Corpuscular Hemoglobin Concent 33 g/dL (31-37) Red Cell Distribution Width 17.1 % (11.5-14.5) Platelet Count 225 x10^3/uL (140-400) Neutrophils (%) (Auto) 95 % (31-73) Lymphocytes (%) (Auto) 3 % (24-48) Monocytes (%) (Auto) 2 % (0-9) Eosinophils (%) (Auto) 0 % (0-3) Basophils (%) (Auto) 0 % (0-3) Neutrophils # (Auto) 7.5 x10^3/uL (1.8-7.7) Lymphocytes # (Auto) 0.2 x10^3/uL (1.0-4.8) Monocytes # (Auto) 0.2 x10^3/uL (0.0-1.1) Eosinophils # (Auto) 0.0 x10^3/uL (0.0-0.7) Basophils # (Auto) 0.0 x10^3/uL (0.0-0.2) Segmented Neutrophils % 99 % (35-66) Monocytes % 1 % (0-10) Platelet Estimate Adequate (ADEQUATE) Anisocytosis Slight Physical Exam HEENT: Neck Supple W Full Motion Chest: Symmetric LUNGS: Other (basilar crackles) Heart: S1S2, RRR (SR) Abdomen: Soft N/T Extremities: No Calf Tenderness, Other (2+ bilateral LE pitting edema) Neurology: alert, oriented, follow commands Assessment Assessment 1. Acute on chronic diastolic CHF: multifactorial with COPD and valvular disease. appears better 2. Valvular disease: mitral valve and aortic valve calcifications 3. COPD with continued tobaccoism: no maintenance regimen 4. CAD: clinically stable 5. PAD: no claudication symptoms 6. HTN: controlled 7. HLP: on goal 8. Chronic anemia 9. Hx of SAHIL aneurysm repair 10. WAP with occasional PSVT possibly MAT Recommendations 1. Lasix therapy, decrease dosing. Replace Mg. Monitor renal function 2. Continue with secondary prevention measures. 3. Smoking cessation 4. Change norvasc to cardize 5. Will consider for outpt stress test if none done recently SANYA DELONG MD 08/08/19 1823: CARDIO Progress Notes Plan Plan Pt. seen and examined. Agree with above Jet Inspector note. No significant change since yesterday. feels better. May still need thora even though diuresis has improved. Will keep NPO and discuss with Dr. Garrett. ELLY MAJANO APRN Aug 08, 2019 09:30 SANYA DELONG MD Aug 08, 2019 18:23
[2019-08-08] MEDS: IPRATRPIUM/ALBUTEROL 0.5/2.5MG 3 ML NEBU. NEB SCH ×4 (09:32→19:58)
[2019-08-08 09:48] LABS: CALCIUM 9.1 mg/dL (8.5-10.1); CREATININE 1.2 mg/dL (0.6-1.0); GFR 43.7; MAGNESIUM 1.7 mg/dL (1.8-2.4); POTASSIUM 3.9 mmol/L (3.5-5.1)
[2019-08-08] MEDS ORDERED: MAGNESIUM SULFATE 2GM 50 ML IV ONE (11:00)
--- NOTE | 2019-08-08 12:51 | PDOC ---
[facility] PROGRESS NOTE Chief Complaint Chief Complaint Shortness of breath, leg swelling, respiratory distress History of Present Illness History of Present Illness 08/08/19 Pt was examined at bedside in the ICU Alert, awake, oriented No acute distress Reading book while sitting upright in chair 08/07/19 Pt was examined at bedside in the ICU Alert, awake, oriented No acute distress Vitals/I&O Vitals/I&O: Vital Signs Date Time Temp Pulse Resp B/P (MAP) Pulse Ox O2 Delivery O2 Flow Rate FiO2 08/08/19 12:24 99 97/50 08/08/19 12:00 98.7 16 90 Nasal Cannula 5.0 98.7 I & O 08/07/19 08/07/19 08/08/19 15:00 23:00 07:00 Intake Total 360 ml 220 ml Output Total 585 ml 245 ml 535 ml Balance -225 ml -25 ml -535 ml Physical Exam Physical Exam: VITALS: Within normal limits and are stable. GENERAL: No apparent distress. Alert and oriented. HEENT: Head is normocephalic, atraumatic, pupils were equally round and reactive to light and accommodation. NECK: Supple, no JVD, no thyromegaly was noted. LUNGS: Clear to auscultation in all lung armstrong without rhonchi or wheezing. She has diffuse crackles. HEART: RRR, S1, S2 present. Peripheral pulses intact. She has systolic ejection murmur, intermittently tachycardic. ABDOMEN: Soft, nontender. Positive bowel sounds no organomegaly, normal bowel sounds. EXTREMITIES: Without any cyanosis, clubbing, or edema. Pedal pulses intact, Homans sign is negative. NEUROLOGIC: Normal speech, normal tone. A & O x3, moves all extremities, no obvious focal deficits. She is extremely weak. PSYCHIATRIC: She is depressed. SKIN: No ulcerations or rashes, good skin turgor, no jaundice. VASCULAR: Good capillary refill, neurovascular bundle appears to be intact. General: Alert, Oriented X3, Cooperative, No acute distress, mild distress Heart: Regular rate (SR with WAP), Other (4/6 systolic murmur to MARTELL border; diastolic murmur to apical region 5/6) Lungs: Clear, Crackles Abdomen: Soft, No tenderness Extremities: No cyanosis, Other (2-3+ bilateral LE pitting edema) Skin: No breakdown, No significant lesion Labs Labs: Laboratory Tests Test 08/08/19 03:45 White Blood Count 7.8 x10^3/uL (4.0-11.0) Red Blood Count 3.22 x10^6/uL (3.50-5.40) Hemoglobin 9.8 g/dL (12.0-15.5) Hematocrit 30.1 % (36.0-47.0) Mean Corpuscular Volume 94 fL (79-100) Mean Corpuscular Hemoglobin 31 pg (25-35) Mean Corpuscular Hemoglobin Concent 33 g/dL (31-37) Red Cell Distribution Width 17.1 % (11.5-14.5) Platelet Count 225 x10^3/uL (140-400) Neutrophils (%) (Auto) 95 % (31-73) Lymphocytes (%) (Auto) 3 % (24-48) Monocytes (%) (Auto) 2 % (0-9) Eosinophils (%) (Auto) 0 % (0-3) Basophils (%) (Auto) 0 % (0-3) Neutrophils # (Auto) 7.5 x10^3/uL (1.8-7.7) Lymphocytes # (Auto) 0.2 x10^3/uL (1.0-4.8) Monocytes # (Auto) 0.2 x10^3/uL (0.0-1.1) Eosinophils # (Auto) 0.0 x10^3/uL (0.0-0.7) Basophils # (Auto) 0.0 x10^3/uL (0.0-0.2) Segmented Neutrophils % 99 % (35-66) Monocytes % 1 % (0-10) Platelet Estimate Adequate (ADEQUATE) Anisocytosis Slight Sodium Level 142 mmol/L (136-145) Potassium Level 3.9 mmol/L (3.5-5.1) Chloride Level 102 mmol/L (98-107) Carbon Dioxide Level 37 mmol/L (21-32) Anion Gap 3 (6-14) Blood Urea Nitrogen 24 mg/dL (7-20) Creatinine 1.2 mg/dL (0.6-1.0) Estimated GFR (Cockcroft-Gault) 43.7 Glucose Level 137 mg/dL (70-99) Calcium Level 9.1 mg/dL (8.5-10.1) Magnesium Level 1.7 mg/dL (1.8-2.4) Review of Systems Review of Systems: GENERAL: No history of weight change or fevers. She complains of weakness. SKIN: No bruising, hair changes or rashes. EYES: No blurred, double or loss of vision. NOSE AND THROAT: No history of nosebleeds, hoarseness or sore throat. HEART: No history of palpitations, chest pain or shortness of breath on exertion. LUNGS: Denies cough, hemoptysis, wheezing. She complains of shortness of breath. GASTROINTESTINAL: Denies changes in appetite, nausea, vomiting, diarrhea or constipation. GENITOURINARY: No history of frequency, urgency, hesitancy or nocturia. NEUROLOGIC: Denies history of numbness, tingling, tremor or weakness. PSYCHIATRIC: No history of panic, anxiety or depression. ENDOCRINE: No history of heat or cold intolerance, polyuria or polydipsia. EXTREMITIES: Denies muscle weakness, joint pain, pain on walking or stiffness. Assessment and Plan Assessmemt and Plan Problems Medical Problems: (1) Acute on chronic diastolic (congestive) heart failure Status: Acute (2) CAD (coronary artery disease) Status: Chronic (3) COPD (chronic obstructive pulmonary disease) Status: Chronic (4) HLD (hyperlipidemia) Status: Chronic (5) HTN (hypertension) Status: Chronic (6) PAD (peripheral artery disease) Status: Chronic (7) Respiratory failure Status: Acute Assessment Pulmonary edema Congestive heart failure COPD HTN Plan ICU monitoring IV Lasix DVT prophylaxis PT/OT O2 per nasal cannula Consult cardiology and pulmonology if needed Full code Comment Review of Relevant I have reviewed the following items emory (where applicable) has been applied. Medications: Current Medications Medications (Trade) Dose Ordered Sig/Melissa Route PRN Reason Start Time Stop Time Status Last Admin Dose Admin Latanoprost (Xalatan) 1 drop QHS OU 08/07/19 21:00 08/07/19 21:16 Atorvastatin Calcium (Lipitor) 40 mg QHS PO 08/07/19 21:00 08/07/19 21:15 Furosemide (Lasix) 40 mg [id number] IVP 08/07/19 16:00 08/08/19 11:56 DC 08/08/19 08:28 Methylprednisolone Sodium Succinate (SOLU-Medrol 40MG VIAL) 30 mg Q8HRS IV 08/07/19 14:00 08/08/19 06:17 Magnesium Sulfate 50 ml @ 25 mls/hr 1X ONCE IV 08/08/19 11:00 08/08/19 12:59 08/08/19 12:09 Diltiazem HCl (Cardizem 24hr Cd) 180 mg DAILY PO 08/08/19 12:00 08/08/19 12:24 LAURA ARCE III DO Aug 08, 2019 12:51
[2019-08-08] MEDS ORDERED: ENOXAPARIN 40 MG/0.4 ML SYRINGE. SQ SCH (17:00)
--- NOTE | 2019-08-08 17:13 | RAD ---
EXAM: CHEST 1 VIEW History: Congestive heart failure COMPARISON: 07/02/2019 TECHNIQUE: Single portable radiograph of the chest FINDINGS: Low lung volumes and technique accentuates heart size and pulmonary vascularity. Mild diffuse prominent bilateral interstitial lung markings likely congestive changes. Small bilateral pleural effusions. IMPRESSION: 1. Mild congestive changes. 2. Small bilateral pleural effusions. Electronically signed by: Sharath Doyle MD (08/08/2019 5:10 PM) [facility]
[2019-08-08] MEDS: LATANOPROST 0.005% OPHTH SOLUTION 2.5ML BOTTLE. OU SCH (20:54)
--- NOTE | 2019-08-08 23:06 | PDOC ---
PULMONARY PROGRESS NOTES Subjective feels better Vitals Vital Signs Date Time Temp Pulse Resp B/P (MAP) Pulse Ox O2 Delivery O2 Flow Rate FiO2 08/08/19 19:58 92 Nasal Cannula 5.0 08/08/19 19:00 97.6 81 26 101/ 97.6 General: Alert, No acute distress Lungs: Other (decrease bases) Cardiovascular: S1 Abdomen: Soft Neuro Exam: Alert Extremities: No Edema Skin: Warm Labs Laboratory Tests Test 08/07/19 06:35 08/08/19 03:45 White Blood Count 2.9 x10^3/uL (4.0-11.0) 7.8 x10^3/uL (4.0-11.0) Red Blood Count 3.39 x10^6/uL (3.50-5.40) 3.22 x10^6/uL (3.50-5.40) Hemoglobin 10.3 g/dL (12.0-15.5) 9.8 g/dL (12.0-15.5) Hematocrit 32.1 % (36.0-47.0) 30.1 % (36.0-47.0) Mean Corpuscular Volume 95 fL (79-100) 94 fL (79-100) Mean Corpuscular Hemoglobin 31 pg (25-35) 31 pg (25-35) Mean Corpuscular Hemoglobin Concent 32 g/dL (31-37) 33 g/dL (31-37) Red Cell Distribution Width 17.0 % (11.5-14.5) 17.1 % (11.5-14.5) Platelet Count 249 x10^3/uL (140-400) 225 x10^3/uL (140-400) Sodium Level 142 mmol/L (136-145) 142 mmol/L (136-145) Potassium Level 4.0 mmol/L (3.5-5.1) 3.9 mmol/L (3.5-5.1) Chloride Level 103 mmol/L (98-107) 102 mmol/L (98-107) Carbon Dioxide Level 35 mmol/L (21-32) 37 mmol/L (21-32) Anion Gap 4 (6-14) 3 (6-14) Blood Urea Nitrogen 19 mg/dL (7-20) 24 mg/dL (7-20) Creatinine 0.9 mg/dL (0.6-1.0) 1.2 mg/dL (0.6-1.0) Estimated GFR (Cockcroft-Gault) 60.9 43.7 BUN/Creatinine Ratio 21 (6-20) Glucose Level 142 mg/dL (70-99) 137 mg/dL (70-99) Calcium Level 9.0 mg/dL (8.5-10.1) 9.1 mg/dL (8.5-10.1) Magnesium Level 1.8 mg/dL (1.8-2.4) 1.7 mg/dL (1.8-2.4) Total Bilirubin 0.2 mg/dL (0.2-1.0) Aspartate Amino Transf (AST/SGOT) 20 U/L (15-37) Alanine Aminotransferase (ALT/SGPT) 14 U/L (14-59) Alkaline Phosphatase 75 U/L (46-116) Troponin I Quantitative < 0.017 ng/mL (0.000-0.055) Total Protein 5.7 g/dL (6.4-8.2) Albumin 2.6 g/dL (3.4-5.0) Albumin/Globulin Ratio 0.8 (1.0-1.7) Triglycerides Level 32 mg/dL (0-150) Cholesterol Level 183 mg/dL (0-200) LDL Cholesterol, Calculated 56 mg/dL (0-100) VLDL Cholesterol, Calculated 6 mg/dL (0-40) Non-HDL Cholesterol Calculated 62 mg/dL (0-129) HDL Cholesterol 121 mg/dL (40-60) Cholesterol/HDL Ratio 1.5 Thyroid Stimulating Hormone (TSH) 1.590 uIU/mL (0.358-3.74) Neutrophils (%) (Auto) 95 % (31-73) Lymphocytes (%) (Auto) 3 % (24-48) Monocytes (%) (Auto) 2 % (0-9) Eosinophils (%) (Auto) 0 % (0-3) Basophils (%) (Auto) 0 % (0-3) Neutrophils # (Auto) 7.5 x10^3/uL (1.8-7.7) Lymphocytes # (Auto) 0.2 x10^3/uL (1.0-4.8) Monocytes # (Auto) 0.2 x10^3/uL (0.0-1.1) Eosinophils # (Auto) 0.0 x10^3/uL (0.0-0.7) Basophils # (Auto) 0.0 x10^3/uL (0.0-0.2) Segmented Neutrophils % 99 % (35-66) Monocytes % 1 % (0-10) Platelet Estimate Adequate (ADEQUATE) Anisocytosis Slight Laboratory Tests Test 08/08/19 03:45 White Blood Count 7.8 x10^3/uL (4.0-11.0) Red Blood Count 3.22 x10^6/uL (3.50-5.40) Hemoglobin 9.8 g/dL (12.0-15.5) Hematocrit 30.1 % (36.0-47.0) Mean Corpuscular Volume 94 fL (79-100) Mean Corpuscular Hemoglobin 31 pg (25-35) Mean Corpuscular Hemoglobin Concent 33 g/dL (31-37) Red Cell Distribution Width 17.1 % (11.5-14.5) Platelet Count 225 x10^3/uL (140-400) Neutrophils (%) (Auto) 95 % (31-73) Lymphocytes (%) (Auto) 3 % (24-48) Monocytes (%) (Auto) 2 % (0-9) Eosinophils (%) (Auto) 0 % (0-3) Basophils (%) (Auto) 0 % (0-3) Neutrophils # (Auto) 7.5 x10^3/uL (1.8-7.7) Lymphocytes # (Auto) 0.2 x10^3/uL (1.0-4.8) Monocytes # (Auto) 0.2 x10^3/uL (0.0-1.1) Eosinophils # (Auto) 0.0 x10^3/uL (0.0-0.7) Basophils # (Auto) 0.0 x10^3/uL (0.0-0.2) Segmented Neutrophils % 99 % (35-66) Monocytes % 1 % (0-10) Platelet Estimate Adequate (ADEQUATE) Anisocytosis Slight Sodium Level 142 mmol/L (136-145) Potassium Level 3.9 mmol/L (3.5-5.1) Chloride Level 102 mmol/L (98-107) Carbon Dioxide Level 37 mmol/L (21-32) Anion Gap 3 (6-14) Blood Urea Nitrogen 24 mg/dL (7-20) Creatinine 1.2 mg/dL (0.6-1.0) Estimated GFR (Cockcroft-Gault) 43.7 Glucose Level 137 mg/dL (70-99) Calcium Level 9.1 mg/dL (8.5-10.1) Magnesium Level 1.7 mg/dL (1.8-2.4) Medications Active Scripts Medications Dose Route/Sig Max Daily Dose Days Date Category Protonix (Pantoprazole Sodium) 20 Mg Tablet.dr 20 Mg PO DAILY 08/07/19 Reported Lumigan (Bimatoprost) 2.5 Ml Drops 1 Drop EACHEYE QHS 07/02/19 Reported Aspirin 81 Mg Tab.chew 81 Mg PO DAILY 06/27/19 Reported Simvastatin 80 Mg Tablet 80 Mg PO HS 04/14/17 Reported Citracal + D Er Tablet (Calcium Carb & Cit/Vitamin D3) 1 Each Tablet.er 1 Each PO DAILY 04/14/17 Reported Alphagan P (Brimonidine Tartrate) 5 Ml Drops 1 Drop OS BID 04/14/17 Reported Evista (Raloxifene Hcl) 60 Mg Tablet 60 Mg PO DAILY 04/14/17 Reported Amlodipine Besylate 10 Mg Tablet 10 Mg PO DAILY 04/14/17 Reported Impression . 1. Acute hypoxic respiratory failure secondary to acute on chronic diastolic heart failure. 2. Abnormal chest x-ray with bilateral pleural effusion and interstitial markings consistent with congestive heart failure. 3. Abnormal echocardiogram with left ventricular hypertrophy and [id number] mitral calcification. 4. Suspected underlying chronic obstructive pulmonary disease could be severe. Plan . 1. Discussed with RN. Continue present oxygen. 2. diuresis 3. Follow chest x-ray in am 4. P.r.n. bronchodilators. 5. Taper steroids. The symptoms are not related to chronic obstructive pulmonary disease exacerbation. 6. Antibiotic can be deescalated soon. 7. Discussed with RN and we will follow along with you. WESTON LOWERY MD Aug 08, 2019 23:06
[2019-08-08] MEDS: ATORVASTATIN CALCIUM 40 MG TABLET. PO SCH (23:07)
[2019-08-09] VITALS (14 sets, daily range): BP systolic 103–140; BP diastolic 50–74
[2019-08-09 04:52] LABS: CALCIUM 9.1 mg/dL (8.5-10.1); CREATININE 1.1 mg/dL (0.6-1.0); GFR 48.3; MAGNESIUM 2.1 mg/dL (1.8-2.4); POTASSIUM 3.9 mmol/L (3.5-5.1)
[2019-08-09 04:54] LABS: BASO % 0 % (0-3); EOS % 0 % (0-3); HEMOGLOBIN 10.1 g/dL (12.0-15.5); LYMPH # 0.2 x10^3/uL (1.0-4.8); LYMPH % 2 % (24-48); MEAN CORPUSCULAR HEMOGLOBIN 31 pg (25-35); MEAN CORPUSCULAR HGB CONC 33 g/dL (31-37); MEAN CORPUSCULAR VOLUME 94 fL (79-100); MONO # 0.1 x10^3/uL (0.0-1.1); MONO % 2 % (0-9); NEUT # 8.5 x10^3/uL (1.8-7.7); NEUT % 97 % (31-73); PLATELET COUNT 195 x10^3/uL (140-400); RED BLOOD COUNT 3.31 x10^6/uL (3.50-5.40); RED CELL DISTRIBUTION WIDTH 17.3 % (11.5-14.5); WHITE BLOOD COUNT 8.8 x10^3/uL (4.0-11.0)
[2019-08-09] MEDS: methylPREDNISolone SOD SUCC PF 40 MG/ML VIAL. IV SCH ×3 (05:47→23:19)
[2019-08-09] MEDS: IPRATRPIUM/ALBUTEROL 0.5/2.5MG 3 ML NEBU. NEB SCH ×4 (07:38→19:53)
[2019-08-09] MEDS: CALCIUM CARB/VIT D3 500/200 TABLET. PO SCH (08:30)
[2019-08-09] MEDS: BRIMONIDINE 0.2% OPHTH SOLUTION 5ML BOTTLE. OS SCH ×2 (08:30→21:08)
[2019-08-09] MEDS: ASPIRIN CHEWABLE 81 MG TABLET. PO SCH (08:30)
[2019-08-09] MEDS: LACTOBACILLUS RHAMNOSUS GG 1 CAPSULE. PO SCH ×2 (08:30→21:08)
[2019-08-09] MEDS: PANTOPRAZOLE 40 MG TABLET.DR. PO SCH (08:30)
[2019-08-09] MEDS: NICOTINE 14MG PATCH. TD SCH (08:33)
[2019-08-09] MEDS: FUROSEMIDE 40 MG/4 ML VIAL. IVP SCH (08:35)
--- NOTE | 2019-08-09 08:42 | RAD ---
EXAM: CHEST 1 VIEW History: Shortness of breath COMPARISON: 08/08/2019 TECHNIQUE: Single portable radiograph of the chest FINDINGS: Low lung volumes and technique accentuates heart size and pulmonary vascularity. Moderate prominent appearing bilateral interstitial lung markings. Moderate bilateral pleural effusions. IMPRESSION: 1. Moderate congestive changes with moderate bilateral pleural effusions. Electronically signed by: Sharath Doyle MD (08/09/2019 8:39 AM) [place] [id number]
--- NOTE | 2019-08-09 09:02 | PDOC ---
PULMONARY PROGRESS NOTES Subjective states she is grumpy because she cant eat this am Denies increased cough or increased SOA Vitals Vital Signs Date Time Temp Pulse Resp B/P (MAP) Pulse Ox O2 Delivery O2 Flow Rate FiO2 08/09/19 08:41 69 116/60 08/09/19 07:39 89 Nasal Cannula 6.0 08/09/19 07:00 97.8 20 97.8 ROS: No Nausea, No Chest Pain, No Increase Cough General: Alert, Oriented X4, No acute distress Lungs: Crackles (bases), Other (decrease bases) Cardiovascular: S1, S2 Abdomen: Soft, Non-tender Neuro Exam: Alert Extremities: Other (trace BLE edema ) Skin: Warm, Dry Labs Laboratory Tests Test 08/08/19 03:45 08/09/19 03:40 White Blood Count 7.8 x10^3/uL (4.0-11.0) 8.8 x10^3/uL (4.0-11.0) Red Blood Count 3.22 x10^6/uL (3.50-5.40) 3.31 x10^6/uL (3.50-5.40) Hemoglobin 9.8 g/dL (12.0-15.5) 10.1 g/dL (12.0-15.5) Hematocrit 30.1 % (36.0-47.0) 31.0 % (36.0-47.0) Mean Corpuscular Volume 94 fL (79-100) 94 fL (79-100) Mean Corpuscular Hemoglobin 31 pg (25-35) 31 pg (25-35) Mean Corpuscular Hemoglobin Concent 33 g/dL (31-37) 33 g/dL (31-37) Red Cell Distribution Width 17.1 % (11.5-14.5) 17.3 % (11.5-14.5) Platelet Count 225 x10^3/uL (140-400) 195 x10^3/uL (140-400) Neutrophils (%) (Auto) 95 % (31-73) 97 % (31-73) Lymphocytes (%) (Auto) 3 % (24-48) 2 % (24-48) Monocytes (%) (Auto) 2 % (0-9) 2 % (0-9) Eosinophils (%) (Auto) 0 % (0-3) 0 % (0-3) Basophils (%) (Auto) 0 % (0-3) 0 % (0-3) Neutrophils # (Auto) 7.5 x10^3/uL (1.8-7.7) 8.5 x10^3/uL (1.8-7.7) Lymphocytes # (Auto) 0.2 x10^3/uL (1.0-4.8) 0.2 x10^3/uL (1.0-4.8) Monocytes # (Auto) 0.2 x10^3/uL (0.0-1.1) 0.1 x10^3/uL (0.0-1.1) Eosinophils # (Auto) 0.0 x10^3/uL (0.0-0.7) 0.0 x10^3/uL (0.0-0.7) Basophils # (Auto) 0.0 x10^3/uL (0.0-0.2) 0.0 x10^3/uL (0.0-0.2) Segmented Neutrophils % 99 % (35-66) Monocytes % 1 % (0-10) Platelet Estimate Adequate (ADEQUATE) Anisocytosis Slight Sodium Level 142 mmol/L (136-145) 139 mmol/L (136-145) Potassium Level 3.9 mmol/L (3.5-5.1) 3.9 mmol/L (3.5-5.1) Chloride Level 102 mmol/L (98-107) 98 mmol/L (98-107) Carbon Dioxide Level 37 mmol/L (21-32) 38 mmol/L (21-32) Anion Gap 3 (6-14) 3 (6-14) Blood Urea Nitrogen 24 mg/dL (7-20) 34 mg/dL (7-20) Creatinine 1.2 mg/dL (0.6-1.0) 1.1 mg/dL (0.6-1.0) Estimated GFR (Cockcroft-Gault) 43.7 48.3 Glucose Level 137 mg/dL (70-99) 145 mg/dL (70-99) Calcium Level 9.1 mg/dL (8.5-10.1) 9.1 mg/dL (8.5-10.1) Magnesium Level 1.7 mg/dL (1.8-2.4) 2.1 mg/dL (1.8-2.4) Laboratory Tests Test 08/09/19 03:40 White Blood Count 8.8 x10^3/uL (4.0-11.0) Red Blood Count 3.31 x10^6/uL (3.50-5.40) Hemoglobin 10.1 g/dL (12.0-15.5) Hematocrit 31.0 % (36.0-47.0) Mean Corpuscular Volume 94 fL (79-100) Mean Corpuscular Hemoglobin 31 pg (25-35) Mean Corpuscular Hemoglobin Concent 33 g/dL (31-37) Red Cell Distribution Width 17.3 % (11.5-14.5) Platelet Count 195 x10^3/uL (140-400) Neutrophils (%) (Auto) 97 % (31-73) Lymphocytes (%) (Auto) 2 % (24-48) Monocytes (%) (Auto) 2 % (0-9) Eosinophils (%) (Auto) 0 % (0-3) Basophils (%) (Auto) 0 % (0-3) Neutrophils # (Auto) 8.5 x10^3/uL (1.8-7.7) Lymphocytes # (Auto) 0.2 x10^3/uL (1.0-4.8) Monocytes # (Auto) 0.1 x10^3/uL (0.0-1.1) Eosinophils # (Auto) 0.0 x10^3/uL (0.0-0.7) Basophils # (Auto) 0.0 x10^3/uL (0.0-0.2) Sodium Level 139 mmol/L (136-145) Potassium Level 3.9 mmol/L (3.5-5.1) Chloride Level 98 mmol/L (98-107) Carbon Dioxide Level 38 mmol/L (21-32) Anion Gap 3 (6-14) Blood Urea Nitrogen 34 mg/dL (7-20) Creatinine 1.1 mg/dL (0.6-1.0) Estimated GFR (Cockcroft-Gault) 48.3 Glucose Level 145 mg/dL (70-99) Calcium Level 9.1 mg/dL (8.5-10.1) Magnesium Level 2.1 mg/dL (1.8-2.4) Medications Active Scripts Medications Dose Route/Sig Max Daily Dose Days Date Category Protonix (Pantoprazole Sodium) 20 Mg Tablet.dr 20 Mg PO DAILY 08/07/19 Reported Lumigan (Bimatoprost) 2.5 Ml Drops 1 Drop EACHEYE QHS 07/02/19 Reported Aspirin 81 Mg Tab.chew 81 Mg PO DAILY 06/27/19 Reported Simvastatin 80 Mg Tablet 80 Mg PO HS 04/14/17 Reported Citracal + D Er Tablet (Calcium Carb & Cit/Vitamin D3) 1 Each Tablet.er 1 Each PO DAILY 04/14/17 Reported Alphagan P (Brimonidine Tartrate) 5 Ml Drops 1 Drop OS BID 04/14/17 Reported Evista (Raloxifene Hcl) 60 Mg Tablet 60 Mg PO DAILY 04/14/17 Reported Amlodipine Besylate 10 Mg Tablet 10 Mg PO DAILY 04/14/17 Reported Impression . 1. Acute hypoxic respiratory failure secondary to acute on chronic diastolic heart failure. 2. Abnormal chest x-ray with bilateral pleural effusion and interstitial markings consistent with congestive heart failure. 3. ECHO in 07/09: There is mild to moderate concentric left ventricular hypertrophy. The Ejection Fraction is 50-55%. There is normal LV segmental wall motion. Grade I-abnormal relaxation pattern. 4. Suspected underlying chronic obstructive pulmonary disease could be severe. Plan . 1. Continue present oxygen. 2. diuresis 3. CXR this am moderate Bilateral effusions . Proceed with right thoracentesis 4. PRN bronchodilators. 5. Taper steroids. The symptoms are not related to chronic obstructive pulmonary disease exacerbation. 6. Antibiotic can be deescalated. 7. Discussed with WESTON PEREZ MD Aug 09, 2019 09:02
--- NOTE | 2019-08-09 09:49 | PDOC ---
[facility] PROGRESS NOTE Chief Complaint Chief Complaint Shortness of breath, leg swelling, respiratory distress History of Present Illness History of Present Illness 08/09/19 Pt seen and examined Alert, awake, oriented Pt was complaining of the hospital, she is very frustrated with not knowing what is going on. We discussed at length that we are giving her the best care. Pt states she is feeling better Consulted with Dr. Garrett that she will be given a thoracentesis later today 08/08/19 Pt was examined at bedside in the ICU Alert, awake, oriented No acute distress Reading book while sitting upright in chair 08/07/19 Pt was examined at bedside in the ICU Alert, awake, oriented No acute distress Vitals/I&O Vitals/I&O: Vital Signs Date Time Temp Pulse Resp B/P (MAP) Pulse Ox O2 Delivery O2 Flow Rate FiO2 08/09/19 08:41 69 116/60 08/09/19 07:39 89 Nasal Cannula 6.0 08/09/19 07:00 97.8 20 97.8 I & O 08/08/19 08/08/19 08/09/19 15:00 23:00 07:00 Intake Total 650 ml 340 ml Output Total 830 ml Balance -180 ml 340 ml Physical Exam Physical Exam: VITALS: Within normal limits and are stable. GENERAL: No apparent distress. Alert and oriented. HEENT: Head is normocephalic, atraumatic, pupils were equally round and reactive to light and accommodation. NECK: Supple, no JVD, no thyromegaly was noted. LUNGS: Clear to auscultation in all lung armstrong without rhonchi or wheezing. She has diffuse crackles. HEART: RRR, S1, S2 present. Peripheral pulses intact. She has systolic ejection murmur, intermittently tachycardic. ABDOMEN: Soft, nontender. Positive bowel sounds no organomegaly, normal bowel sounds. EXTREMITIES: Without any cyanosis, clubbing, or edema. Pedal pulses intact, Homans sign is negative. NEUROLOGIC: Normal speech, normal tone. A & O x3, moves all extremities, no obvious focal deficits. She is extremely weak. PSYCHIATRIC: She is depressed. SKIN: No ulcerations or rashes, good skin turgor, no jaundice. VASCULAR: Good capillary refill, neurovascular bundle appears to be intact. General: Alert, Oriented X3, Cooperative, No acute distress, mild distress Heart: Regular rate (SR with WAP), Other (4/6 systolic murmur to MARTELL border; diastolic murmur to apical region 5/6) Lungs: Crackles (bases), Other (decrease bases) Abdomen: Soft, No tenderness Extremities: No cyanosis, Other (2-3+ bilateral LE pitting edema) Skin: No breakdown, No significant lesion Labs Labs: Laboratory Tests Test 08/09/19 03:40 White Blood Count 8.8 x10^3/uL (4.0-11.0) Red Blood Count 3.31 x10^6/uL (3.50-5.40) Hemoglobin 10.1 g/dL (12.0-15.5) Hematocrit 31.0 % (36.0-47.0) Mean Corpuscular Volume 94 fL (79-100) Mean Corpuscular Hemoglobin 31 pg (25-35) Mean Corpuscular Hemoglobin Concent 33 g/dL (31-37) Red Cell Distribution Width 17.3 % (11.5-14.5) Platelet Count 195 x10^3/uL (140-400) Neutrophils (%) (Auto) 97 % (31-73) Lymphocytes (%) (Auto) 2 % (24-48) Monocytes (%) (Auto) 2 % (0-9) Eosinophils (%) (Auto) 0 % (0-3) Basophils (%) (Auto) 0 % (0-3) Neutrophils # (Auto) 8.5 x10^3/uL (1.8-7.7) Lymphocytes # (Auto) 0.2 x10^3/uL (1.0-4.8) Monocytes # (Auto) 0.1 x10^3/uL (0.0-1.1) Eosinophils # (Auto) 0.0 x10^3/uL (0.0-0.7) Basophils # (Auto) 0.0 x10^3/uL (0.0-0.2) Sodium Level 139 mmol/L (136-145) Potassium Level 3.9 mmol/L (3.5-5.1) Chloride Level 98 mmol/L (98-107) Carbon Dioxide Level 38 mmol/L (21-32) Anion Gap 3 (6-14) Blood Urea Nitrogen 34 mg/dL (7-20) Creatinine 1.1 mg/dL (0.6-1.0) Estimated GFR (Cockcroft-Gault) 48.3 Glucose Level 145 mg/dL (70-99) Calcium Level 9.1 mg/dL (8.5-10.1) Magnesium Level 2.1 mg/dL (1.8-2.4) Review of Systems Review of Systems: Denies pain Co weakness Assessment and Plan Assessmemt and Plan Problems Medical Problems: (1) Acute on chronic diastolic (congestive) heart failure Status: Acute (2) CAD (coronary artery disease) Status: Chronic (3) COPD (chronic obstructive pulmonary disease) Status: Chronic (4) HLD (hyperlipidemia) Status: Chronic (5) HTN (hypertension) Status: Chronic (6) PAD (peripheral artery disease) Status: Chronic (7) Respiratory failure Status: Acute Assessment Pulmonary edema Congestive heart failure COPD HTN CAD HLD Plan IV Lasix DVT prophylaxis PT/OT O2 per nasal cannula Consult cardiology Consult pulmonology IR follow up for thoracentesis Full code Comment Review of Relevant I have reviewed the following items emory (where applicable) has been applied. Medications: Current Medications Medications (Trade) Dose Ordered Sig/Melissa Route PRN Reason Start Time Stop Time Status Last Admin Dose Admin Magnesium Sulfate 50 ml @ 25 mls/hr 1X ONCE IV 08/08/19 11:00 08/08/19 12:59 DC 08/08/19 12:09 Furosemide (Lasix) 40 mg DAILY IVP 08/08/19 12:00 08/09/19 08:41 Diltiazem HCl (Cardizem 24hr Cd) 180 mg DAILY PO 08/08/19 12:00 08/09/19 08:41 Enoxaparin Sodium (Lovenox 40mg Syringe) 40 mg Q24H SQ 08/08/19 17:00 08/09/19 09:30 DC 08/08/19 16:20 LAURA ARCE III DO Aug 09, 2019 09:49
--- NOTE | 2019-08-09 15:28 | RAD ---
Ultrasound-guided left sided thoracentesis 08/09/2019 1:23 PM Indication: Shortness of breath. Bilateral pleural effusions. Procedure: Informed consent was obtained. A timeout procedure was performed. Sonographic evaluation of the left chest was performed demonstrating moderate pleural effusion. The left posterior chest was prepped and draped in sterile fashion. 1% lidocaine without epinephrine was administered for local anesthesia. Real-time ultrasonographic guidance was used in passing a [employer] catheter into the left pleural space. 1.2 L of serosanguineous pleural fluid was removed. Samples of fluid were sent to the lab for further evaluation per ordering physician request. The catheter was removed and pressure held to achieve hemostasis. A sterile dressing was applied. No immediate complications were identified. The patient tolerated the procedure well. Impression: left sided ultrasound-guided thoracentesis
--- NOTE | 2019-08-09 15:42 | PDOC ---
RACHEL ARCHIBALD PEARL DIVER 08/09/19 1542: CARDIO Progress Notes Date and Time Date of Service 08/09/19 Time of Evaluation 1310 Subjective Subjective: No Chest Pain, No Palpitations, No Dizziness, Other (angry. Wanting to go home. ) Vitals Vitals Vital Signs Date Time Temp Pulse Resp B/P (MAP) Pulse Ox O2 Delivery O2 Flow Rate FiO2 08/09/19 11:49 87 Nasal Cannula 5.0 08/09/19 11:08 98.1 82 20 120/62 (81) 98.1 Weight Weight [ ] Input and Output Intake and Output Intake and Output 08/09/19 06:59 Intake Total 990 ml Output Total 850 ml Balance 140 ml Intake Oral 840 ml IV Total 150 ml Output Urine Total 850 ml Laboratory Labs Laboratory Tests Test 08/09/19 03:40 White Blood Count 8.8 x10^3/uL (4.0-11.0) Red Blood Count 3.31 x10^6/uL (3.50-5.40) Hemoglobin 10.1 g/dL (12.0-15.5) Hematocrit 31.0 % (36.0-47.0) Mean Corpuscular Volume 94 fL (79-100) Mean Corpuscular Hemoglobin 31 pg (25-35) Mean Corpuscular Hemoglobin Concent 33 g/dL (31-37) Red Cell Distribution Width 17.3 % (11.5-14.5) Platelet Count 195 x10^3/uL (140-400) Neutrophils (%) (Auto) 97 % (31-73) Lymphocytes (%) (Auto) 2 % (24-48) Monocytes (%) (Auto) 2 % (0-9) Eosinophils (%) (Auto) 0 % (0-3) Basophils (%) (Auto) 0 % (0-3) Neutrophils # (Auto) 8.5 x10^3/uL (1.8-7.7) Lymphocytes # (Auto) 0.2 x10^3/uL (1.0-4.8) Monocytes # (Auto) 0.1 x10^3/uL (0.0-1.1) Eosinophils # (Auto) 0.0 x10^3/uL (0.0-0.7) Basophils # (Auto) 0.0 x10^3/uL (0.0-0.2) Sodium Level 139 mmol/L (136-145) Potassium Level 3.9 mmol/L (3.5-5.1) Chloride Level 98 mmol/L (98-107) Carbon Dioxide Level 38 mmol/L (21-32) Anion Gap 3 (6-14) Blood Urea Nitrogen 34 mg/dL (7-20) Creatinine 1.1 mg/dL (0.6-1.0) Estimated GFR (Cockcroft-Gault) 48.3 Glucose Level 145 mg/dL (70-99) Calcium Level 9.1 mg/dL (8.5-10.1) Magnesium Level 2.1 mg/dL (1.8-2.4) Physical Exam HEENT: Neck Supple W Full Motion Chest: Symmetric LUNGS: Other (basilar crackles) Heart: S1S2, RRR (SR) Abdomen: Soft N/T Extremities: No Calf Tenderness, Other (1+ bilateral LE pitting edema) Neurology: alert, oriented, follow commands Assessment Assessment 1. Acute on chronic diastolic CHF: multifactorial. LVEF 50-55%. 2. Acute on chronic respiratory failure in setting of a/c CHF, pleural effus ion, and COPD. s/p left thoracentesis. Probable right thoracentesis tomorrow. 3. CAD: clinically stable 4. PAD: no claudication symptoms 5. Valvular disease: mitral valve and aortic valve calcifications 6. Hypertension; controlled 7. Hyperlipidemia 8. WAP with occasional PSVT possibly MAT; rate controlled with Cardizem 9. Tobaccoism; discussed/encouraged cessation Recommendations Ongoing diuresis Continue with secondary prevention measures. Consider outpatient ischemic evaluation SANYA DELONG MD 08/09/19 1710: CARDIO Progress Notes Plan Plan Patient seen and examined. Agree with above nurse practitioner note with the following comments Discussed with pulmonary service. Plan for thoracentesis but she continues to have dyspnea. Continue gentle diuresis as tolerated. Supportive care. RACHEL ARCHIBALD APRN Aug 09, 2019 15:42 SANYA DELONG MD Aug 09, 2019 17:10
[2019-08-09] MEDS: LATANOPROST 0.005% OPHTH SOLUTION 2.5ML BOTTLE. OU SCH (21:08)
[2019-08-09] MEDS: ATORVASTATIN CALCIUM 40 MG TABLET. PO SCH (21:09)
[2019-08-10] VITALS (8 sets, daily range): BP systolic 105–142; BP diastolic 49–65
[2019-08-10 05:18] LABS: BASO % 0 % (0-3); EOS % 0 % (0-3); HEMATOCRIT 32.2 % (36.0-47.0); HEMOGLOBIN 10.5 g/dL (12.0-15.5); LYMPH # 0.1 x10^3/uL (1.0-4.8); LYMPH % 1 % (24-48); MEAN CORPUSCULAR HEMOGLOBIN 30 pg (25-35); MEAN CORPUSCULAR HGB CONC 33 g/dL (31-37); MEAN CORPUSCULAR VOLUME 93 fL (79-100); MONO # 0.2 x10^3/uL (0.0-1.1); MONO % 2 % (0-9); NEUT # 8.8 x10^3/uL (1.8-7.7); NEUT % 96 % (31-73); PLATELET COUNT 190 x10^3/uL (140-400); RED BLOOD COUNT 3.46 x10^6/uL (3.50-5.40); RED CELL DISTRIBUTION WIDTH 17.2 % (11.5-14.5); WHITE BLOOD COUNT 9.2 x10^3/uL (4.0-11.0)
[2019-08-10] MEDS: methylPREDNISolone SOD SUCC PF 40 MG/ML VIAL. IV SCH ×2 (06:24→11:04)
[2019-08-10] MEDS: IPRATRPIUM/ALBUTEROL 0.5/2.5MG 3 ML NEBU. NEB SCH ×4 (07:35→20:36)
[2019-08-10] MEDS: ASPIRIN CHEWABLE 81 MG TABLET. PO SCH (08:56)
[2019-08-10] MEDS: LACTOBACILLUS RHAMNOSUS GG 1 CAPSULE. PO SCH ×2 (08:57→20:56)
[2019-08-10] MEDS: PANTOPRAZOLE 40 MG TABLET.DR. PO SCH (08:57)
[2019-08-10] MEDS: CALCIUM CARB/VIT D3 500/200 TABLET. PO SCH (08:57)
[2019-08-10] MEDS: BRIMONIDINE 0.2% OPHTH SOLUTION 5ML BOTTLE. OS SCH ×2 (08:57→20:56)
[2019-08-10] MEDS: NICOTINE 14MG PATCH. TD SCH (08:58)
[2019-08-10] MEDS: FUROSEMIDE 40 MG/4 ML VIAL. IVP SCH (08:58)
--- NOTE | 2019-08-10 10:18 | PDOC ---
PULMONARY PROGRESS NOTES Subjective Pt. is up to chair this am. Currently on 5 liters N/C. Reports improvement in breathing S/P thoracentesis Left side on 07/30/19 Vitals Vital Signs Date Time Temp Pulse Resp B/P (MAP) Pulse Ox O2 Delivery O2 Flow Rate FiO2 08/10/19 08:58 72 106/65 08/10/19 07:36 93 Nasal Cannula 5.0 08/10/19 07:35 97.7 16 97.7 ROS: No Nausea, No Chest Pain, No Increase Cough General: Alert, Oriented X4, No acute distress Lungs: Other (decrease bases) Cardiovascular: S1, S2 Abdomen: Soft, Non-tender Neuro Exam: Alert Extremities: Other (trace BLE edema ) Skin: Warm, Dry Labs Laboratory Tests Test 08/09/19 03:40 08/10/19 04:30 White Blood Count 8.8 x10^3/uL (4.0-11.0) 9.2 x10^3/uL (4.0-11.0) Red Blood Count 3.31 x10^6/uL (3.50-5.40) 3.46 x10^6/uL (3.50-5.40) Hemoglobin 10.1 g/dL (12.0-15.5) 10.5 g/dL (12.0-15.5) Hematocrit 31.0 % (36.0-47.0) 32.2 % (36.0-47.0) Mean Corpuscular Volume 94 fL (79-100) 93 fL (79-100) Mean Corpuscular Hemoglobin 31 pg (25-35) 30 pg (25-35) Mean Corpuscular Hemoglobin Concent 33 g/dL (31-37) 33 g/dL (31-37) Red Cell Distribution Width 17.3 % (11.5-14.5) 17.2 % (11.5-14.5) Platelet Count 195 x10^3/uL (140-400) 190 x10^3/uL (140-400) Neutrophils (%) (Auto) 97 % (31-73) 96 % (31-73) Lymphocytes (%) (Auto) 2 % (24-48) 1 % (24-48) Monocytes (%) (Auto) 2 % (0-9) 2 % (0-9) Eosinophils (%) (Auto) 0 % (0-3) 0 % (0-3) Basophils (%) (Auto) 0 % (0-3) 0 % (0-3) Neutrophils # (Auto) 8.5 x10^3/uL (1.8-7.7) 8.8 x10^3/uL (1.8-7.7) Lymphocytes # (Auto) 0.2 x10^3/uL (1.0-4.8) 0.1 x10^3/uL (1.0-4.8) Monocytes # (Auto) 0.1 x10^3/uL (0.0-1.1) 0.2 x10^3/uL (0.0-1.1) Eosinophils # (Auto) 0.0 x10^3/uL (0.0-0.7) 0.0 x10^3/uL (0.0-0.7) Basophils # (Auto) 0.0 x10^3/uL (0.0-0.2) 0.0 x10^3/uL (0.0-0.2) Sodium Level 139 mmol/L (136-145) Potassium Level 3.9 mmol/L (3.5-5.1) Chloride Level 98 mmol/L (98-107) Carbon Dioxide Level 38 mmol/L (21-32) Anion Gap 3 (6-14) Blood Urea Nitrogen 34 mg/dL (7-20) Creatinine 1.1 mg/dL (0.6-1.0) Estimated GFR (Cockcroft-Gault) 48.3 Glucose Level 145 mg/dL (70-99) Calcium Level 9.1 mg/dL (8.5-10.1) Magnesium Level 2.1 mg/dL (1.8-2.4) Laboratory Tests Test 08/10/19 04:30 White Blood Count 9.2 x10^3/uL (4.0-11.0) Red Blood Count 3.46 x10^6/uL (3.50-5.40) Hemoglobin 10.5 g/dL (12.0-15.5) Hematocrit 32.2 % (36.0-47.0) Mean Corpuscular Volume 93 fL (79-100) Mean Corpuscular Hemoglobin 30 pg (25-35) Mean Corpuscular Hemoglobin Concent 33 g/dL (31-37) Red Cell Distribution Width 17.2 % (11.5-14.5) Platelet Count 190 x10^3/uL (140-400) Neutrophils (%) (Auto) 96 % (31-73) Lymphocytes (%) (Auto) 1 % (24-48) Monocytes (%) (Auto) 2 % (0-9) Eosinophils (%) (Auto) 0 % (0-3) Basophils (%) (Auto) 0 % (0-3) Neutrophils # (Auto) 8.8 x10^3/uL (1.8-7.7) Lymphocytes # (Auto) 0.1 x10^3/uL (1.0-4.8) Monocytes # (Auto) 0.2 x10^3/uL (0.0-1.1) Eosinophils # (Auto) 0.0 x10^3/uL (0.0-0.7) Basophils # (Auto) 0.0 x10^3/uL (0.0-0.2) Medications Active Scripts Medications Dose Route/Sig Max Daily Dose Days Date Category Protonix (Pantoprazole Sodium) 20 Mg Tablet.dr 20 Mg PO DAILY 08/07/19 Reported Lumigan (Bimatoprost) 2.5 Ml Drops 1 Drop EACHEYE QHS 07/02/19 Reported Aspirin 81 Mg Tab.chew 81 Mg PO DAILY 06/27/19 Reported Simvastatin 80 Mg Tablet 80 Mg PO HS 04/14/17 Reported Citracal + D Er Tablet (Calcium Carb & Cit/Vitamin D3) 1 Each Tablet.er 1 Each PO DAILY 04/14/17 Reported Alphagan P (Brimonidine Tartrate) 5 Ml Drops 1 Drop OS BID 04/14/17 Reported Evista (Raloxifene Hcl) 60 Mg Tablet 60 Mg PO DAILY 04/14/17 Reported Amlodipine Besylate 10 Mg Tablet 10 Mg PO DAILY 04/14/17 Reported Impression . 1. Acute hypoxic respiratory failure secondary to acute on chronic diastolic heart failure. 2. Abnormal chest x-ray with bilateral pleural effusion and interstitial markings consistent with congestive heart failure. 3. ECHO in 07/09: There is mild to moderate concentric left ventricular hypertrophy. The Ejection Fraction is 50-55%. There is normal LV segmental wall motion. Grade I-abnormal relaxation pattern. 4. Suspected underlying chronic obstructive pulmonary disease could be severe. Plan . 1. Continue present oxygen. 2. diuresis per cardiology 3. S/P left thoracentesis , serosanguineous drainage on 08/09/19 , proceed with right side thoracentesis today , follow fluid results 4. PRN bronchodilators. 5. Taper steroids, now to daily steroid 6. currently off ABX 7. Discussed with WESTON PEREZ MD Aug 10, 2019 10:18
--- NOTE | 2019-08-10 14:07 | PATHOLOGY ---
Note [facility] Accession Number: [id number] TESTS RESULT FLAG UNITS REF RANGE LAB Clinician Provided Cytology Information No. of containers..01 Other (Miscellaneous) Source: LEFT PLEURAL FLUID DIAGNOSIS: LEFT PLEURAL FLUID NEGATIVE FOR MALIGNANT CELLS. REACTIVE MESOTHELIAL CELLS ARE PRESENT. Signed out by: J Carlos Diaz MD, Pathologist NPI- [id number] Performed by: Chance Salgado, Horse Trainer ([facility]) Gross description: 35 ML, YELLOW, CLEAR /LCS 11/20/1840 0000 Local FLAG LEGEND: L-Low Normal,H-High Normal,LL-Alert Low,HH-Alert High <-Panic Low,>-Panic High,A-Abnormal,AA-Critical Abnormal Performed at: [address] [place] [address] Roman Guardado MD, [address] [facility] [address] [place] [address] Roc Sharma MD, Specimen Comment: A duplicate report has been generated due to demographic updates. Performed at: [address], [place], [place] [id number] MD Roman Guardado MD Phone: [phone]
[2019-08-10] MEDS: MULTIVITAMIN with MINERAL TABLET. PO SCH (14:37)
[2019-08-10] MEDS: ASCORBIC ACID 500 MG TABLET PO SCH (14:38)
--- NOTE | 2019-08-10 14:38 | RAD ---
Ultrasound-guided right-sided thoracentesis 08/10/2019 12:35 PM Indication: Right Pleural Effusion Procedure: Informed consent was obtained. A timeout procedure was performed. Sonographic evaluation of the right chest was performed demonstrating moderate pleural effusion. The right posterior chest was prepped and draped in sterile fashion. 1% lidocaine without epinephrine was administered for local anesthesia. Real-time ultrasonographic guidance was used in passing a [address] [employer] [address] [employer] catheter into the right pleural space. 0.9 L of serosanguineous pleural fluid was removed. Samples of fluid were sent to the lab for further evaluation per ordering physician request. The catheter was removed and pressure held to achieve hemostasis. A sterile dressing was applied. No immediate complications were identified. The patient tolerated the procedure well. Impression: Right sided ultrasound-guided thoracentesis
--- NOTE | 2019-08-10 15:25 | PDOC ---
PROGRESS NOTES Chief Complaint Chief Complaint . 1. Acute hypoxic respiratory failure 2. acute on chronic diastolic heart failure. 3. bilateral pleural effusion and interstitial markings consistent with congestive heart failure. 4. COPD - possible severe, Shortness of breath, leg swelling, respiratory distress History of Present Illness History of Present Illness 08/10 Continue present oxygen. dannye, . S/P left thoracentesis - right today 08/09/19 Pt seen and examined Alert, awake, oriented Pt was complaining of the hospital, she is very frustrated with not knowing what is going on. We discussed at length that we are giving her the best care. Pt states she is feeling better Consulted with Dr. Garrett that she will be given a thoracentesis later today 08/08/19 Pt was examined at bedside in the ICU Alert, awake, oriented No acute distress Reading book while sitting upright in chair 08/07/19 Pt was examined at bedside in the ICU Alert, awake, oriented No acute distress Vitals Vitals Vital Signs Date Time Temp Pulse Resp B/P (MAP) Pulse Ox O2 Delivery O2 Flow Rate FiO2 08/10/19 14:40 97.7 96 16 140/57 (84) 90 Nasal Cannula 5.0 97.7 Physical Exam Physical Exam VITALS: Within normal limits and are stable. GENERAL: No apparent distress. Alert and oriented. HEENT: Head is normocephalic, atraumatic, pupils were equally round and reactive to light and accommodation. NECK: Supple, no JVD, no thyromegaly was noted. LUNGS: Clear to auscultation in all lung armstrong without rhonchi or wheezing. She has diffuse crackles. HEART: RRR, S1, S2 present. Peripheral pulses intact. She has systolic ejection murmur, intermittently tachycardic. ABDOMEN: Soft, nontender. Positive bowel sounds no organomegaly, normal bowel sounds. EXTREMITIES: Without any cyanosis, clubbing, or edema. Pedal pulses intact, Homans sign is negative. NEUROLOGIC: Normal speech, normal tone. A & O x3, moves all extremities, no obvious focal deficits. She is extremely weak. PSYCHIATRIC: She is depressed. SKIN: No ulcerations or rashes, good skin turgor, no jaundice. VASCULAR: Good capillary refill, neurovascular bundle appears to be intact. General: Alert, Oriented X3, Cooperative, No acute distress, mild distress Heart: Regular rate (SR with WAP), Other (4/6 systolic murmur to MARTELL border; diastolic murmur to apical region 5/6) Lungs: Clear, Other (decrease bases) Abdomen: Soft, No tenderness Extremities: No cyanosis, Other (2-3+ bilateral LE pitting edema) Skin: No breakdown, No significant lesion Labs LABS Laboratory Tests Test 08/10/19 04:30 White Blood Count 9.2 x10^3/uL (4.0-11.0) Red Blood Count 3.46 x10^6/uL (3.50-5.40) Hemoglobin 10.5 g/dL (12.0-15.5) Hematocrit 32.2 % (36.0-47.0) Mean Corpuscular Volume 93 fL (79-100) Mean Corpuscular Hemoglobin 30 pg (25-35) Mean Corpuscular Hemoglobin Concent 33 g/dL (31-37) Red Cell Distribution Width 17.2 % (11.5-14.5) Platelet Count 190 x10^3/uL (140-400) Neutrophils (%) (Auto) 96 % (31-73) Lymphocytes (%) (Auto) 1 % (24-48) Monocytes (%) (Auto) 2 % (0-9) Eosinophils (%) (Auto) 0 % (0-3) Basophils (%) (Auto) 0 % (0-3) Neutrophils # (Auto) 8.8 x10^3/uL (1.8-7.7) Lymphocytes # (Auto) 0.1 x10^3/uL (1.0-4.8) Monocytes # (Auto) 0.2 x10^3/uL (0.0-1.1) Eosinophils # (Auto) 0.0 x10^3/uL (0.0-0.7) Basophils # (Auto) 0.0 x10^3/uL (0.0-0.2) Assessment and Plan Assessmemt and Plan Problems Medical Problems: (1) Acute on chronic diastolic (congestive) heart failure Status: Acute (2) CAD (coronary artery disease) Status: Chronic (3) COPD (chronic obstructive pulmonary disease) Status: Chronic (4) HLD (hyperlipidemia) Status: Chronic (5) HTN (hypertension) Status: Chronic (6) PAD (peripheral artery disease) Status: Chronic (7) Respiratory failure Status: Acute Comment Review of Relevant I have reviewed the following items emory (where applicable) has been applied. Labs Laboratory Tests Test 08/09/19 03:40 08/09/19 10:15 08/10/19 04:30 White Blood Count 8.8 x10^3/uL (4.0-11.0) 9.2 x10^3/uL (4.0-11.0) Red Blood Count 3.31 x10^6/uL (3.50-5.40) 3.46 x10^6/uL (3.50-5.40) Hemoglobin 10.1 g/dL (12.0-15.5) 10.5 g/dL (12.0-15.5) Hematocrit 31.0 % (36.0-47.0) 32.2 % (36.0-47.0) Mean Corpuscular Volume 94 fL (79-100) 93 fL (79-100) Mean Corpuscular Hemoglobin 31 pg (25-35) 30 pg (25-35) Mean Corpuscular Hemoglobin Concent 33 g/dL (31-37) 33 g/dL (31-37) Red Cell Distribution Width 17.3 % (11.5-14.5) 17.2 % (11.5-14.5) Platelet Count 195 x10^3/uL (140-400) 190 x10^3/uL (140-400) Neutrophils (%) (Auto) 97 % (31-73) 96 % (31-73) Lymphocytes (%) (Auto) 2 % (24-48) 1 % (24-48) Monocytes (%) (Auto) 2 % (0-9) 2 % (0-9) Eosinophils (%) (Auto) 0 % (0-3) 0 % (0-3) Basophils (%) (Auto) 0 % (0-3) 0 % (0-3) Neutrophils # (Auto) 8.5 x10^3/uL (1.8-7.7) 8.8 x10^3/uL (1.8-7.7) Lymphocytes # (Auto) 0.2 x10^3/uL (1.0-4.8) 0.1 x10^3/uL (1.0-4.8) Monocytes # (Auto) 0.1 x10^3/uL (0.0-1.1) 0.2 x10^3/uL (0.0-1.1) Eosinophils # (Auto) 0.0 x10^3/uL (0.0-0.7) 0.0 x10^3/uL (0.0-0.7) Basophils # (Auto) 0.0 x10^3/uL (0.0-0.2) 0.0 x10^3/uL (0.0-0.2) Sodium Level 139 mmol/L (136-145) Potassium Level 3.9 mmol/L (3.5-5.1) Chloride Level 98 mmol/L (98-107) Carbon Dioxide Level 38 mmol/L (21-32) Anion Gap 3 (6-14) Blood Urea Nitrogen 34 mg/dL (7-20) Creatinine 1.1 mg/dL (0.6-1.0) Estimated GFR (Cockcroft-Gault) 48.3 Glucose Level 145 mg/dL (70-99) Calcium Level 9.1 mg/dL (8.5-10.1) Magnesium Level 2.1 mg/dL (1.8-2.4) Body Fluid Total Protein 0.9 g/dL (.) Body Fluid Lactate Dehydrogenase 54 IU/L (.) Laboratory Tests Test 08/10/19 04:30 White Blood Count 9.2 x10^3/uL (4.0-11.0) Red Blood Count 3.46 x10^6/uL (3.50-5.40) Hemoglobin 10.5 g/dL (12.0-15.5) Hematocrit 32.2 % (36.0-47.0) Mean Corpuscular Volume 93 fL (79-100) Mean Corpuscular Hemoglobin 30 pg (25-35) Mean Corpuscular Hemoglobin Concent 33 g/dL (31-37) Red Cell Distribution Width 17.2 % (11.5-14.5) Platelet Count 190 x10^3/uL (140-400) Neutrophils (%) (Auto) 96 % (31-73) Lymphocytes (%) (Auto) 1 % (24-48) Monocytes (%) (Auto) 2 % (0-9) Eosinophils (%) (Auto) 0 % (0-3) Basophils (%) (Auto) 0 % (0-3) Neutrophils # (Auto) 8.8 x10^3/uL (1.8-7.7) Lymphocytes # (Auto) 0.1 x10^3/uL (1.0-4.8) Monocytes # (Auto) 0.2 x10^3/uL (0.0-1.1) Eosinophils # (Auto) 0.0 x10^3/uL (0.0-0.7) Basophils # (Auto) 0.0 x10^3/uL (0.0-0.2) Medications Current Medications Amlodipine Besylate (Norvasc) 10 mg DAILY PO Last administered on 08/08/19 08:28; Start 08/07/19 at 09:00; Stop 08/08/19 at 11:59; Status DC Aspirin (Children'S Aspirin) 81 mg DAILY PO Last administered on 08/10/19 08:58; Start 08/07/19 at 09:00 Latanoprost (Xalatan) 1 drop QHS OU Last administered on 08/09/19 21:11; Start 08/07/19 at 21:00 Brimonidine Tartrate (Alphagan) 1 drop BID OS Last administered on 08/10/19 08:58; Start 08/07/19 at 09:00 Calcium/Vitamin D (Oscal D 500mg/ 200uts) 1 tab DAILYWBKFT PO Last administered on 08/10/19 08:58; Start 08/07/19 at 08:00 Atorvastatin Calcium (Lipitor) 40 mg QHS PO Last administered on 08/09/19 21:11; Start 08/07/19 at 21:00 Levofloxacin/ Dextrose 100 ml @ 100 mls/hr QHS IV Last administered on 08/08/19 20:55; Start 08/07/19 at 01:00; Stop 08/09/19 at 17:18; Status DC Acetaminophen/ Hydrocodone Bitart (Lortab 5/325) 1 tab PRN Q4HRS PRN PO MODERATE PAIN 4-6; Start 08/07/19 at 00:30 Acetaminophen (Tylenol) 650 mg PRN Q6HRS PRN PO MILD PAIN / TEMP Last administered on 08/07/19at 13:11; Start 08/07/19 at 00:30 Methylprednisolone Sodium Succinate (SOLU-Medrol 40MG VIAL) 60 mg Q8HRS IV Last administered on 08/07/19at 05:53; Start 08/07/19 at 06:00; Stop 08/07/19 at 12:42; Status DC Albuterol/ Ipratropium (Duoneb) 3 ml RTQID NEB Last administered on 08/10/19at 11:36; Start 08/07/19 at 08:00 Albuterol Sulfate (Ventolin Neb Soln) 2.5 mg PRN Q4HRS PRN NEB SHORTNESS OF BREATH; Start 08/07/19 at 00:30 Furosemide (Lasix) 40 mg DAILY IVP Last administered on 08/07/19at 08:34; Start 08/07/19 at 09:00; Stop 08/07/19 at 09:21; Status DC Influenza Virus Vaccine Quadrival (Afluria Quad 2019-20 (3yr Up) Syringe) 0.5 ml ONCE ONCE VAX IM ; Start 08/07/19 at 02:00; Stop 08/07/19 at 02:01; Status UNV Atorvastatin Calcium (Lipitor) 40 mg 1X ONCE PO Last administered on 08/07/19at 02:01; Start 08/07/19 at 02:00; Stop 08/07/19 at 02:01; Status DC Nicotine (Nicoderm Cq 14mg) 1 patch DAILY TD Last administered on 08/10/19at 08:58; Start 08/07/19 at 07:00 Pantoprazole Sodium (Protonix) 40 mg DAILYAC PO Last administered on 08/10/19at 08:58; Start 08/07/19 at 09:30 Lactobacillus Rhamnosus (Culturelle) 1 cap BID PO Last administered on 08/10/19at 08:58; Start 08/07/19 at 10:00 Furosemide (Lasix) 40 mg [id number] IVP Last administered on 08/08/19at 08:28; Start 08/07/19 at 16:00; Stop 08/08/19 at 11:56; Status DC Methylprednisolone Sodium Succinate (SOLU-Medrol 40MG VIAL) 30 mg Q8HRS IV Last administered on 08/10/19at 06:24; Start 08/07/19 at 14:00; Stop 08/10/19 at 10:18; Status DC Magnesium Sulfate 50 ml @ 25 mls/hr 1X ONCE IV Last administered on 08/08/19 12:09; Start 08/08/19 at 11:00; Stop 08/08/19 at 12:59; Status DC Furosemide (Lasix) 40 mg DAILY IVP Last administered on 08/10/19 08:58; Start 08/08/19 at 12:00 Diltiazem HCl (Cardizem 24hr Cd) 180 mg DAILY PO Last administered on 08/10/19at 08:58; Start 08/08/19 at 12:00 Enoxaparin Sodium (Lovenox 40mg Syringe) 40 mg Q24H SQ Last administered on 08/08/19at 16:20; Start 08/08/19 at 17:00; Stop 08/09/19 at 09:30; Status DC Enoxaparin Sodium (Lovenox 40mg Syringe) 40 mg Q24H SQ ; Start 08/10/19 at 17:00 Methylprednisolone Sodium Succinate (SOLU-Medrol 40MG VIAL) 40 mg DAILY IV Last administered on 08/10/19at 11:04; Start 08/10/19 at 10:30 Multivitamins (Thera M Plus) 1 tab DAILY PO Last administered on 08/10/19at 14:38; Start 08/10/19 at 14:30 Ascorbic Acid (Vitamin C) 500 mg DAILY PO Last administered on 08/10/19at 14:38; Start 08/10/19 at 14:30 Active Scripts Active Reported Protonix (Pantoprazole Sodium) 20 Mg Tablet.dr 20 Mg PO DAILY Lumigan (Bimatoprost) 2.5 Ml Drops 1 Drop EACHEYE QHS Aspirin 81 Mg Tab.chew 81 Mg PO DAILY Simvastatin 80 Mg Tablet 80 Mg PO HS Citracal + D Er Tablet (Calcium Carb & Cit/Vitamin D3) 1 Each Tablet.er 1 Each PO DAILY Alphagan P (Brimonidine Tartrate) 5 Ml Drops 1 Drop OS BID Evista (Raloxifene Hcl) 60 Mg Tablet 60 Mg PO DAILY Amlodipine Besylate 10 Mg Tablet 10 Mg PO DAILY Vitals/I & O Vital Sign - Last 24 Hours 08/09/19 08/09/19 08/09/19 08/09/19 16:23 19:00 19:53 20:00 Temp 98.0 98.0 Pulse 87 Resp 20 B/P (MAP) 131/54 (79) Pulse Ox 87 92 91 O2 Delivery Nasal Cannula Nasal Cannula Nasal Cannula Nasal Cannula O2 Flow Rate 5.0 5.0 5.0 5.0 08/09/19 08/10/19 08/10/19 08/10/19 23:00 00:00 03:00 07:35 Temp 98.0 98.1 97.7 98.0 98.1 97.7 Pulse 88 88 77 72 Resp 20 16 16 B/P (MAP) 103/59 (74) 105/60 (75) 106/65 (79) Pulse Ox 91 91 91 95 O2 Delivery Nasal Cannula Nasal Cannula Nasal Cannula Nasal Cannula O2 Flow Rate 5.0 5.0 5.0 5.0 08/10/19 08/10/19 08/10/19 08/10/19 07:36 08:00 08:58 10:31 Temp 97.9 97.9 Pulse 72 96 Resp 16 B/P (MAP) 106/65 131/64 (86) Pulse Ox 93 96 O2 Delivery Nasal Cannula Nasal Cannula Nasal Cannula O2 Flow Rate 5.0 5.0 5.0 08/10/19 08/10/19 08/10/19 08/10/19 11:36 12:01 12:09 14:40 Temp 97.7 97.7 Pulse 72 74 96 Resp 24 16 B/P (MAP) 140/59 (86) 142/61 (88) 140/57 (84) Pulse Ox 93 93 94 90 O2 Delivery Nasal Cannula Nasal Cannula Nasal Cannula Nasal Cannula O2 Flow Rate 5.0 6.0 6.0 5.0 Nutrition Consultation Dietary Evaluation: Recommendations by RD: Protein supplementation Comments: Continue w/cardiac diet as ordered REC Ensure BID (chocolate() REC: MVI q day, Vit C 500 mg q day Expected Outcomes/Goals: PO intake to meet >75% est needs Malnutrition Findings: Body Fat Depletion (Non Severe: Mild Depletion Weight Status: Appropriate FLORENCE SHERWOOD MD Aug 10, 2019 15:25
--- NOTE | 2019-08-10 17:23 | PDOC ---
CARDIOLOGY PROGRESS NOTE SUBJECTIVE: Feels much better after thoracentesis OBJECTIVE: Vital Signs/I&O: Vital Signs Date Time Temp Pulse Resp B/P (MAP) Pulse Ox O2 Delivery O2 Flow Rate FiO2 08/10/19 15:59 86 Nasal Cannula 5.0 08/10/19 14:40 97.7 96 16 140/57 (84) 97.7 Objective: bilateral wheezing present LE edema resolved. Normal heart tones. CURRENT MEDICATIONS: Current Medications Medications (Trade) Dose Ordered Sig/Melissa Route PRN Reason Start Time Stop Time Status Last Admin Dose Admin Methylprednisolone Sodium Succinate (SOLU-Medrol 40MG VIAL) 40 mg DAILY IV 08/10/19 10:30 08/10/19 11:04 Multivitamins (Thera M Plus) 1 tab DAILY PO 08/10/19 14:30 08/10/19 14:38 Ascorbic Acid (Vitamin C) 500 mg DAILY PO 08/10/19 14:30 08/10/19 14:38 DIAGNOSTIC TESTING: Labs reviewed Labs: Laboratory Tests 08/10/19 04:30 Laboratory Tests Test 08/10/19 04:30 White Blood Count 9.2 x10^3/uL (4.0-11.0) Red Blood Count 3.46 x10^6/uL (3.50-5.40) L Hemoglobin 10.5 g/dL (12.0-15.5) L Hematocrit 32.2 % (36.0-47.0) L Mean Corpuscular Volume 93 fL (79-100) Mean Corpuscular Hemoglobin 30 pg (25-35) Mean Corpuscular Hemoglobin Concent 33 g/dL (31-37) Red Cell Distribution Width 17.2 % (11.5-14.5) H Platelet Count 190 x10^3/uL (140-400) Neutrophils (%) (Auto) 96 % (31-73) H Lymphocytes (%) (Auto) 1 % (24-48) L Monocytes (%) (Auto) 2 % (0-9) Eosinophils (%) (Auto) 0 % (0-3) Basophils (%) (Auto) 0 % (0-3) Neutrophils # (Auto) 8.8 x10^3/uL (1.8-7.7) H Lymphocytes # (Auto) 0.1 x10^3/uL (1.0-4.8) L Monocytes # (Auto) 0.2 x10^3/uL (0.0-1.1) Eosinophils # (Auto) 0.0 x10^3/uL (0.0-0.7) Basophils # (Auto) 0.0 x10^3/uL (0.0-0.2) ASSESSMENT: 1. Acute on chronic diastolic HF likely multifactorial due to COPD, HTN and hypoalbuminemia PLAN: 1. Change to oral diuretics in a.m. 2. Await improvement in oxygenation. Supportive care. Probably needs placement. SANYA DELONG MD Aug 10, 2019 17:23
[2019-08-10] MEDS: ENOXAPARIN 40 MG/0.4 ML SYRINGE. SQ SCH (18:12)
[2019-08-10] MEDS: ATORVASTATIN CALCIUM 40 MG TABLET. PO SCH (20:56)
[2019-08-10] MEDS: LATANOPROST 0.005% OPHTH SOLUTION 2.5ML BOTTLE. OU SCH (20:57)
[2019-08-11 03:00] VITALS: BP_SYST 151; BP_SYST 154; BP_DIAS 64; BP_DIAS 68
[2019-08-11 04:13] LABS: BASO % 0 % (0-3); EOS % 0 % (0-3); HEMATOCRIT 34.1 % (36.0-47.0); LYMPH # 0.2 x10^3/uL (1.0-4.8); LYMPH % 2 % (24-48); MEAN CORPUSCULAR HEMOGLOBIN 30 pg (25-35); MEAN CORPUSCULAR HGB CONC 32 g/dL (31-37); MEAN CORPUSCULAR VOLUME 93 fL (79-100); MONO # 0.6 x10^3/uL (0.0-1.1); MONO % 7 % (0-9); NEUT # 7.8 x10^3/uL (1.8-7.7); NEUT % 91 % (31-73); PLATELET COUNT 174 x10^3/uL (140-400); RED BLOOD COUNT 3.68 x10^6/uL (3.50-5.40); RED CELL DISTRIBUTION WIDTH 16.6 % (11.5-14.5); WHITE BLOOD COUNT 8.6 x10^3/uL (4.0-11.0)
[2019-08-11 06:41] LABS: CALCIUM 9.5 mg/dL (8.5-10.1); CREATININE 1.2 mg/dL (0.6-1.0); GFR 43.7; MAGNESIUM 2.1 mg/dL (1.8-2.4); POTASSIUM 3.8 mmol/L (3.5-5.1)
[2019-08-11 07:38] VITALS: BP 153/68
--- NOTE | 2019-08-11 07:51 | RAD ---
Indication:Shortness of breath. TECHNIQUE:Portable AP chest X-ray COMPARISON: 08/09/2019. FINDINGS: Heart is normal in size. Aortic knob calcifications present systemic artery hypertension. Significant interval improvement in previously seen left pleural effusion. Stable right pleural effusion. Diffuse soft tissue opacities are seen in the aerated lungs. No pneumothorax. Visualized bony thorax within normal limits. IMPRESSION: 1. Near complete resolution of previously seen left pleural effusion. Trace pleural effusion may the present. 2. Stable to minimal improvement in previously seen right pleural effusion. Underlying consolidation in the right lung base from atelectasis or pneumonia is present. Electronically signed by: Alex Dey DO (08/11/2019 7:48 AM) [facility]
[2019-08-11] MEDS: IPRATRPIUM/ALBUTEROL 0.5/2.5MG 3 ML NEBU. NEB SCH ×4 (08:23→20:19)
[2019-08-11] MEDS: ASCORBIC ACID 500 MG TABLET PO SCH (09:09)
[2019-08-11] MEDS: PANTOPRAZOLE 40 MG TABLET.DR. PO SCH (09:09)
[2019-08-11] MEDS: LACTOBACILLUS RHAMNOSUS GG 1 CAPSULE. PO SCH ×2 (09:09→19:43)
[2019-08-11] MEDS: CALCIUM CARB/VIT D3 500/200 TABLET. PO SCH (09:09)
[2019-08-11] MEDS: ASPIRIN CHEWABLE 81 MG TABLET. PO SCH (09:09)
[2019-08-11] MEDS: MULTIVITAMIN with MINERAL TABLET. PO SCH (09:09)
[2019-08-11] MEDS: NICOTINE 14MG PATCH. TD SCH (09:10)
[2019-08-11] MEDS: FUROSEMIDE 40 MG/4 ML VIAL. IVP SCH (09:10)
[2019-08-11] MEDS: methylPREDNISolone SOD SUCC PF 40 MG/ML VIAL. IV SCH (09:10)
[2019-08-11] MEDS: BRIMONIDINE 0.2% OPHTH SOLUTION 5ML BOTTLE. OS SCH ×2 (09:14→19:44)
[2019-08-11 10:53] VITALS: BP 132/60
--- NOTE | 2019-08-11 12:13 | PDOC ---
PULMONARY PROGRESS NOTES Subjective Pt. is up to chair this am. Currently on 5 liters N/C. Reports improvement in breathing S/P thoracentesis Left side on 07/30/19 Vitals Vital Signs Date Time Temp Pulse Resp B/P (MAP) Pulse Ox O2 Delivery O2 Flow Rate FiO2 08/11/19 11:39 95 Nasal Cannula 5.0 08/11/19 10:53 98.4 88 20 132/60 (84) 98.4 ROS: No Nausea, No Chest Pain, No Increase Cough General: Alert, Oriented X4, No acute distress Lungs: Other (decreased breath sounds, scattered wheezing) Cardiovascular: S1, S2 Abdomen: Soft, Non-tender Neuro Exam: Alert Extremities: Other (trace BLE edema ) Skin: Warm, Dry Labs Laboratory Tests Test 08/10/19 04:30 08/11/19 04:00 08/11/19 05:00 White Blood Count 9.2 x10^3/uL (4.0-11.0) 8.6 x10^3/uL (4.0-11.0) Red Blood Count 3.46 x10^6/uL (3.50-5.40) 3.68 x10^6/uL (3.50-5.40) Hemoglobin 10.5 g/dL (12.0-15.5) 11.0 g/dL (12.0-15.5) Hematocrit 32.2 % (36.0-47.0) 34.1 % (36.0-47.0) Mean Corpuscular Volume 93 fL (79-100) 93 fL (79-100) Mean Corpuscular Hemoglobin 30 pg (25-35) 30 pg (25-35) Mean Corpuscular Hemoglobin Concent 33 g/dL (31-37) 32 g/dL (31-37) Red Cell Distribution Width 17.2 % (11.5-14.5) 16.6 % (11.5-14.5) Platelet Count 190 x10^3/uL (140-400) 174 x10^3/uL (140-400) Neutrophils (%) (Auto) 96 % (31-73) 91 % (31-73) Lymphocytes (%) (Auto) 1 % (24-48) 2 % (24-48) Monocytes (%) (Auto) 2 % (0-9) 7 % (0-9) Eosinophils (%) (Auto) 0 % (0-3) 0 % (0-3) Basophils (%) (Auto) 0 % (0-3) 0 % (0-3) Neutrophils # (Auto) 8.8 x10^3/uL (1.8-7.7) 7.8 x10^3/uL (1.8-7.7) Lymphocytes # (Auto) 0.1 x10^3/uL (1.0-4.8) 0.2 x10^3/uL (1.0-4.8) Monocytes # (Auto) 0.2 x10^3/uL (0.0-1.1) 0.6 x10^3/uL (0.0-1.1) Eosinophils # (Auto) 0.0 x10^3/uL (0.0-0.7) 0.0 x10^3/uL (0.0-0.7) Basophils # (Auto) 0.0 x10^3/uL (0.0-0.2) 0.0 x10^3/uL (0.0-0.2) Sodium Level 139 mmol/L (136-145) Potassium Level 3.8 mmol/L (3.5-5.1) Chloride Level 97 mmol/L (98-107) Carbon Dioxide Level 39 mmol/L (21-32) Anion Gap 3 (6-14) Blood Urea Nitrogen 47 mg/dL (7-20) Creatinine 1.2 mg/dL (0.6-1.0) Estimated GFR (Cockcroft-Gault) 43.7 Glucose Level 164 mg/dL (70-99) Calcium Level 9.5 mg/dL (8.5-10.1) Magnesium Level 2.1 mg/dL (1.8-2.4) Laboratory Tests Test 08/11/19 04:00 08/11/19 05:00 White Blood Count 8.6 x10^3/uL (4.0-11.0) Red Blood Count 3.68 x10^6/uL (3.50-5.40) Hemoglobin 11.0 g/dL (12.0-15.5) Hematocrit 34.1 % (36.0-47.0) Mean Corpuscular Volume 93 fL (79-100) Mean Corpuscular Hemoglobin 30 pg (25-35) Mean Corpuscular Hemoglobin Concent 32 g/dL (31-37) Red Cell Distribution Width 16.6 % (11.5-14.5) Platelet Count 174 x10^3/uL (140-400) Neutrophils (%) (Auto) 91 % (31-73) Lymphocytes (%) (Auto) 2 % (24-48) Monocytes (%) (Auto) 7 % (0-9) Eosinophils (%) (Auto) 0 % (0-3) Basophils (%) (Auto) 0 % (0-3) Neutrophils # (Auto) 7.8 x10^3/uL (1.8-7.7) Lymphocytes # (Auto) 0.2 x10^3/uL (1.0-4.8) Monocytes # (Auto) 0.6 x10^3/uL (0.0-1.1) Eosinophils # (Auto) 0.0 x10^3/uL (0.0-0.7) Basophils # (Auto) 0.0 x10^3/uL (0.0-0.2) Sodium Level 139 mmol/L (136-145) Potassium Level 3.8 mmol/L (3.5-5.1) Chloride Level 97 mmol/L (98-107) Carbon Dioxide Level 39 mmol/L (21-32) Anion Gap 3 (6-14) Blood Urea Nitrogen 47 mg/dL (7-20) Creatinine 1.2 mg/dL (0.6-1.0) Estimated GFR (Cockcroft-Gault) 43.7 Glucose Level 164 mg/dL (70-99) Calcium Level 9.5 mg/dL (8.5-10.1) Magnesium Level 2.1 mg/dL (1.8-2.4) Medications Active Scripts Medications Dose Route/Sig Max Daily Dose Days Date Category Protonix (Pantoprazole Sodium) 20 Mg Tablet.dr 20 Mg PO DAILY 08/07/19 Reported Lumigan (Bimatoprost) 2.5 Ml Drops 1 Drop EACHEYE QHS 07/02/19 Reported Aspirin 81 Mg Tab.chew 81 Mg PO DAILY 06/27/19 Reported Simvastatin 80 Mg Tablet 80 Mg PO HS 04/14/17 Reported Citracal + D Er Tablet (Calcium Carb & Cit/Vitamin D3) 1 Each Tablet.er 1 Each PO DAILY 04/14/17 Reported Alphagan P (Brimonidine Tartrate) 5 Ml Drops 1 Drop OS BID 04/14/17 Reported Evista (Raloxifene Hcl) 60 Mg Tablet 60 Mg PO DAILY 04/14/17 Reported Amlodipine Besylate 10 Mg Tablet 10 Mg PO DAILY 04/14/17 Reported Comments Left effusion greatly diminished. right effusion persists. Impression . 1. Acute hypoxic respiratory failure secondary to acute on chronic diastolic heart failure. 2. Abnormal chest x-ray with bilateral pleural effusion and interstitial markings consistent with congestive heart failure. 3. ECHO in 07/09: There is mild to moderate concentric left ventricular hypertrophy. The Ejection Fraction is 50-55%. There is normal LV segmental wall motion. Grade I-abnormal relaxation pattern. 4. Chronic obstructive pulmonary disease could be severe. Plan . 1. Continue present oxygen. 2. diuresis per cardiology 3. S/P left thoracentesis , serosanguineous drainage on 08/09/19 , LDH consistent with transudate, cytology negative. follow fluid results 4. PRN bronchodilators. 5. Taper steroids, now to daily steroid 6. currently off ABX 7. Would keep in negative fluid balance. When effusion near optimal, would re- image. If right density persists, would obtain CT to make sure no other pathology. 8. discussed importance of complete smoking cessation and techniques. 9. PFTs after discharge NOE HECTOR MD Aug 11, 2019 12:13
--- NOTE | 2019-08-11 12:24 | PDOC ---
CARDIOLOGY PROGRESS NOTE SUBJECTIVE: No acute events overnight. No chest pain. Dyspnea persistent OBJECTIVE: Vital Signs/I&O: Vital Signs Date Time Temp Pulse Resp B/P (MAP) Pulse Ox O2 Delivery O2 Flow Rate FiO2 08/11/19 11:39 95 Nasal Cannula 5.0 08/11/19 10:53 98.4 88 20 132/60 (84) 98.4 I & O 08/10/19 08/10/19 08/11/19 14:59 22:59 06:59 Intake Total 1100 ml Output Total 900 ml 950 ml 210 ml Balance -900 ml 150 ml -210 ml Objective: a/o x 3. NAD CVS: RRR Lungs: Decreased breath sounds the RLL Soft abd Trace edema. Neck veins flat. CURRENT MEDICATIONS: diltiazem, lasix, atorvastatin and asa DIAGNOSTIC TESTING: CXR with persistent RLL consolidation/effusion ASSESSMENT: 1. Acute on chronic resp failure - likely multifactorial 2. Acute on chronic diastolic HF 3. PAD s/p femoral endart PLAN: 1. Continue present meds. Still with high oxygen requirements. 2. Discussed with pulmonary, will obtain chest CT. Thanks SANYA DELONG MD Aug 11, 2019 12:24
--- NOTE | 2019-08-11 14:34 | PDOC ---
PROGRESS NOTES Chief Complaint Chief Complaint . 1. Acute hypoxic respiratory failure 2. acute on chronic diastolic heart failure. 3. bilateral pleural effusion and interstitial markings consistent with congestive heart failure. 4. COPD - possible severe, Shortness of breath, leg swelling, respiratory distress History of Present Illness History of Present Illness 08/11 Continue present oxygen. diurese, . S/P left thoracentesis - right yesterday, still some fluid Vitals Vitals Vital Signs Date Time Temp Pulse Resp B/P (MAP) Pulse Ox O2 Delivery O2 Flow Rate FiO2 08/11/19 11:39 95 Nasal Cannula 5.0 08/11/19 10:53 98.4 88 20 132/60 (84) 98.4 Physical Exam Physical Exam VITALS: Within normal limits and are stable. GENERAL: No apparent distress. Alert and oriented. HEENT: Head is normocephalic, atraumatic, pupils were equally round and reactive to light and accommodation. NECK: Supple, no JVD, no thyromegaly was noted. LUNGS: Clear to auscultation in all lung armstrong without rhonchi or wheezing. She has diffuse crackles. HEART: RRR, S1, S2 present. Peripheral pulses intact. She has systolic ejection murmur, intermittently tachycardic. ABDOMEN: Soft, nontender. Positive bowel sounds no organomegaly, normal bowel sounds. EXTREMITIES: Without any cyanosis, clubbing, or edema. Pedal pulses intact, Homans sign is negative. NEUROLOGIC: Normal speech, normal tone. A & O x3, moves all extremities, no obvious focal deficits. She is extremely weak. PSYCHIATRIC: She is depressed. SKIN: No ulcerations or rashes, good skin turgor, no jaundice. VASCULAR: Good capillary refill, neurovascular bundle appears to be intact. General: Alert, Oriented X3, Cooperative, No acute distress, mild distress Heart: Regular rate (SR with WAP), Other (4/6 systolic murmur to MARTELL border; diastolic murmur to apical region 5/6) Lungs: Clear, Other (decreased breath sounds, scattered wheezing) Abdomen: Soft, No tenderness Extremities: No cyanosis, Other (2-3+ bilateral LE pitting edema) Skin: No breakdown, No significant lesion Labs LABS Laboratory Tests Test 08/11/19 04:00 08/11/19 05:00 White Blood Count 8.6 x10^3/uL (4.0-11.0) Red Blood Count 3.68 x10^6/uL (3.50-5.40) Hemoglobin 11.0 g/dL (12.0-15.5) Hematocrit 34.1 % (36.0-47.0) Mean Corpuscular Volume 93 fL (79-100) Mean Corpuscular Hemoglobin 30 pg (25-35) Mean Corpuscular Hemoglobin Concent 32 g/dL (31-37) Red Cell Distribution Width 16.6 % (11.5-14.5) Platelet Count 174 x10^3/uL (140-400) Neutrophils (%) (Auto) 91 % (31-73) Lymphocytes (%) (Auto) 2 % (24-48) Monocytes (%) (Auto) 7 % (0-9) Eosinophils (%) (Auto) 0 % (0-3) Basophils (%) (Auto) 0 % (0-3) Neutrophils # (Auto) 7.8 x10^3/uL (1.8-7.7) Lymphocytes # (Auto) 0.2 x10^3/uL (1.0-4.8) Monocytes # (Auto) 0.6 x10^3/uL (0.0-1.1) Eosinophils # (Auto) 0.0 x10^3/uL (0.0-0.7) Basophils # (Auto) 0.0 x10^3/uL (0.0-0.2) Sodium Level 139 mmol/L (136-145) Potassium Level 3.8 mmol/L (3.5-5.1) Chloride Level 97 mmol/L (98-107) Carbon Dioxide Level 39 mmol/L (21-32) Anion Gap 3 (6-14) Blood Urea Nitrogen 47 mg/dL (7-20) Creatinine 1.2 mg/dL (0.6-1.0) Estimated GFR (Cockcroft-Gault) 43.7 Glucose Level 164 mg/dL (70-99) Calcium Level 9.5 mg/dL (8.5-10.1) Magnesium Level 2.1 mg/dL (1.8-2.4) Review of Systems Review of Systems weak, dyspneic Assessment and Plan Assessmemt and Plan Problems Medical Problems: (1) Acute on chronic diastolic (congestive) heart failure Status: Acute (2) CAD (coronary artery disease) Status: Chronic (3) COPD (chronic obstructive pulmonary disease) Status: Chronic (4) HLD (hyperlipidemia) Status: Chronic (5) HTN (hypertension) Status: Chronic (6) PAD (peripheral artery disease) Status: Chronic (7) Respiratory failure Status: Acute Comment Review of Relevant I have reviewed the following items emory (where applicable) has been applied. Labs Laboratory Tests Test 08/10/19 04:30 08/11/19 04:00 08/11/19 05:00 White Blood Count 9.2 x10^3/uL (4.0-11.0) 8.6 x10^3/uL (4.0-11.0) Red Blood Count 3.46 x10^6/uL (3.50-5.40) 3.68 x10^6/uL (3.50-5.40) Hemoglobin 10.5 g/dL (12.0-15.5) 11.0 g/dL (12.0-15.5) Hematocrit 32.2 % (36.0-47.0) 34.1 % (36.0-47.0) Mean Corpuscular Volume 93 fL (79-100) 93 fL (79-100) Mean Corpuscular Hemoglobin 30 pg (25-35) 30 pg (25-35) Mean Corpuscular Hemoglobin Concent 33 g/dL (31-37) 32 g/dL (31-37) Red Cell Distribution Width 17.2 % (11.5-14.5) 16.6 % (11.5-14.5) Platelet Count 190 x10^3/uL (140-400) 174 x10^3/uL (140-400) Neutrophils (%) (Auto) 96 % (31-73) 91 % (31-73) Lymphocytes (%) (Auto) 1 % (24-48) 2 % (24-48) Monocytes (%) (Auto) 2 % (0-9) 7 % (0-9) Eosinophils (%) (Auto) 0 % (0-3) 0 % (0-3) Basophils (%) (Auto) 0 % (0-3) 0 % (0-3) Neutrophils # (Auto) 8.8 x10^3/uL (1.8-7.7) 7.8 x10^3/uL (1.8-7.7) Lymphocytes # (Auto) 0.1 x10^3/uL (1.0-4.8) 0.2 x10^3/uL (1.0-4.8) Monocytes # (Auto) 0.2 x10^3/uL (0.0-1.1) 0.6 x10^3/uL (0.0-1.1) Eosinophils # (Auto) 0.0 x10^3/uL (0.0-0.7) 0.0 x10^3/uL (0.0-0.7) Basophils # (Auto) 0.0 x10^3/uL (0.0-0.2) 0.0 x10^3/uL (0.0-0.2) Sodium Level 139 mmol/L (136-145) Potassium Level 3.8 mmol/L (3.5-5.1) Chloride Level 97 mmol/L (98-107) Carbon Dioxide Level 39 mmol/L (21-32) Anion Gap 3 (6-14) Blood Urea Nitrogen 47 mg/dL (7-20) Creatinine 1.2 mg/dL (0.6-1.0) Estimated GFR (Cockcroft-Gault) 43.7 Glucose Level 164 mg/dL (70-99) Calcium Level 9.5 mg/dL (8.5-10.1) Magnesium Level 2.1 mg/dL (1.8-2.4) Laboratory Tests Test 08/11/19 04:00 08/11/19 05:00 White Blood Count 8.6 x10^3/uL (4.0-11.0) Red Blood Count 3.68 x10^6/uL (3.50-5.40) Hemoglobin 11.0 g/dL (12.0-15.5) Hematocrit 34.1 % (36.0-47.0) Mean Corpuscular Volume 93 fL (79-100) Mean Corpuscular Hemoglobin 30 pg (25-35) Mean Corpuscular Hemoglobin Concent 32 g/dL (31-37) Red Cell Distribution Width 16.6 % (11.5-14.5) Platelet Count 174 x10^3/uL (140-400) Neutrophils (%) (Auto) 91 % (31-73) Lymphocytes (%) (Auto) 2 % (24-48) Monocytes (%) (Auto) 7 % (0-9) Eosinophils (%) (Auto) 0 % (0-3) Basophils (%) (Auto) 0 % (0-3) Neutrophils # (Auto) 7.8 x10^3/uL (1.8-7.7) Lymphocytes # (Auto) 0.2 x10^3/uL (1.0-4.8) Monocytes # (Auto) 0.6 x10^3/uL (0.0-1.1) Eosinophils # (Auto) 0.0 x10^3/uL (0.0-0.7) Basophils # (Auto) 0.0 x10^3/uL (0.0-0.2) Sodium Level 139 mmol/L (136-145) Potassium Level 3.8 mmol/L (3.5-5.1) Chloride Level 97 mmol/L (98-107) Carbon Dioxide Level 39 mmol/L (21-32) Anion Gap 3 (6-14) Blood Urea Nitrogen 47 mg/dL (7-20) Creatinine 1.2 mg/dL (0.6-1.0) Estimated GFR (Cockcroft-Gault) 43.7 Glucose Level 164 mg/dL (70-99) Calcium Level 9.5 mg/dL (8.5-10.1) Magnesium Level 2.1 mg/dL (1.8-2.4) Microbiology 08/09/19 Anaerobic/Aerobic Culture, Resulted Pending 08/09/19 Anaerobic Culture Result 1 (BENNY), Resulted Pending 08/09/19 Aerobic Culture, Resulted Pending 08/09/19 Aerobic Culture Result 1 (BENNY), Resulted Pending 08/09/19 Gram Stain - Final, Resulted 08/09/19 Gram Stain Result 1 (BENNY) - Final, Resulted 08/09/19 Gram Stain Result 2 (BENNY) - Final, Resulted Medications Current Medications Amlodipine Besylate (Norvasc) 10 mg DAILY PO Last administered on 08/08/19at 08:28; Start 08/07/19 at 09:00; Stop 08/08/19 at 11:59; Status DC Aspirin (Children'S Aspirin) 81 mg DAILY PO Last administered on 08/11/19 09:14; Start 08/07/19 at 09:00 Latanoprost (Xalatan) 1 drop QHS OU Last administered on 08/10/19at 20:57; Start 08/07/19 at 21:00 Brimonidine Tartrate (Alphagan) 1 drop BID OS Last administered on 08/11/19at 09:14; Start 08/07/19 at 09:00 Calcium/Vitamin D (Oscal D 500mg/ 200uts) 1 tab [id number] PO Last administered on 08/11/19at 09:14; Start 08/07/19 at 08:00 Atorvastatin Calcium (Lipitor) 40 mg QHS PO Last administered on 08/10/19at 20:57; Start 08/07/19 at 21:00 Levofloxacin/ Dextrose 100 ml @ 100 mls/hr QHS IV Last administered on 08/08/19at 20:55; Start 08/07/19 at 01:00; Stop 08/09/19 at 17:18; Status DC Acetaminophen/ Hydrocodone Bitart (Lortab 5/325) 1 tab PRN Q4HRS PRN PO MODERATE PAIN 4-6; Start 08/07/19 at 00:30 Acetaminophen (Tylenol) 650 mg PRN Q6HRS PRN PO MILD PAIN / TEMP Last administered on 08/07/19at 13:11; Start 08/07/19 at 00:30 Methylprednisolone Sodium Succinate (SOLU-Medrol 40MG VIAL) 60 mg Q8HRS IV Last administered on 08/07/19at 05:53; Start 08/07/19 at 06:00; Stop 08/07/19 at 12:42; Status DC Albuterol/ Ipratropium (Duoneb) 3 ml RTQID NEB Last administered on 08/11/19at 11:38; Start 08/07/19 at 08:00 Albuterol Sulfate (Ventolin Neb Soln) 2.5 mg PRN Q4HRS PRN NEB SHORTNESS OF BREATH; Start 08/07/19 at 00:30 Furosemide (Lasix) 40 mg DAILY IVP Last administered on 08/07/19at 08:34; Start 08/07/19 at 09:00; Stop 08/07/19 at 09:21; Status DC Influenza Virus Vaccine Quadrival (Afluria Quad 2019-20 (3yr Up) Syringe) 0.5 ml ONCE ONCE VAX IM ; Start 08/07/19 at 02:00; Stop 08/07/19 at 02:01; Status UNV Atorvastatin Calcium (Lipitor) 40 mg 1X ONCE PO Last administered on 08/07/19at 02:01; Start 08/07/19 at 02:00; Stop 08/07/19 at 02:01; Status DC Nicotine (Nicoderm Cq 14mg) 1 patch DAILY TD Last administered on 08/11/19at 09:14; Start 08/07/19 at 07:00 Pantoprazole Sodium (Protonix) 40 mg DAILYAC PO Last administered on 08/11/19at 09:14; Start 08/07/19 at 09:30 Lactobacillus Rhamnosus (Culturelle) 1 cap BID PO Last administered on 08/11/19at 09:14; Start 08/07/19 at 10:00 Furosemide (Lasix) 40 mg [id number] IVP Last administered on 08/08/19at 08:28; Start 08/07/19 at 16:00; Stop 08/08/19 at 11:56; Status DC Methylprednisolone Sodium Succinate (SOLU-Medrol 40MG VIAL) 30 mg Q8HRS IV Last administered on 08/10/19at 06:24; Start 08/07/19 at 14:00; Stop 08/10/19 at 10:18; Status DC Magnesium Sulfate 50 ml @ 25 mls/hr 1X ONCE IV Last administered on 08/08/19at 12:09; Start 08/08/19 at 11:00; Stop 08/08/19 at 12:59; Status DC Furosemide (Lasix) 40 mg DAILY IVP Last administered on 08/11/19at 09:14; Start 08/08/19 at 12:00 Diltiazem HCl (Cardizem 24hr Cd) 180 mg DAILY PO Last administered on 08/11/19at 09:14; Start 08/08/19 at 12:00 Enoxaparin Sodium (Lovenox 40mg Syringe) 40 mg Q24H SQ Last administered on 08/08/19at 16:20; Start 08/08/19 at 17:00; Stop 08/09/19 at 09:30; Status DC Enoxaparin Sodium (Lovenox 40mg Syringe) 40 mg Q24H SQ Last administered on 08/10/19at 18:13; Start 08/10/19 at 17:00 Methylprednisolone Sodium Succinate (SOLU-Medrol 40MG VIAL) 40 mg DAILY IV Last administered on 08/11/19at 09:14; Start 08/10/19 at 10:30 Multivitamins (Thera M Plus) 1 tab DAILY PO Last administered on 08/11/19at 09:14; Start 08/10/19 at 14:30 Ascorbic Acid (Vitamin C) 500 mg DAILY PO Last administered on 08/11/19at 09:14; Start 08/10/19 at 14:30 Active Scripts Active Reported Protonix (Pantoprazole Sodium) 20 Mg Tablet.dr 20 Mg PO DAILY Lumigan (Bimatoprost) 2.5 Ml Drops 1 Drop EACHEYE QHS Aspirin 81 Mg Tab.chew 81 Mg PO DAILY Simvastatin 80 Mg Tablet 80 Mg PO HS Citracal + D Er Tablet (Calcium Carb & Cit/Vitamin D3) 1 Each Tablet.er 1 Each PO DAILY Alphagan P (Brimonidine Tartrate) 5 Ml Drops 1 Drop OS BID Evista (Raloxifene Hcl) 60 Mg Tablet 60 Mg PO DAILY Amlodipine Besylate 10 Mg Tablet 10 Mg PO DAILY Vitals/I & O Vital Sign - Last 24 Hours 08/10/19 08/10/19 08/10/19 08/10/19 14:40 15:59 19:00 19:35 Temp 97.7 98.0 97.7 98.0 Pulse 96 98 Resp 16 20 B/P (MAP) 140/57 (84) 131/49 (76) Pulse Ox 90 86 90 O2 Delivery Nasal Cannula Nasal Cannula Nasal Cannula Nasal Cannula O2 Flow Rate 5.0 5.0 5.0 6.0 08/10/19 08/10/19 08/11/19 08/11/19 20:36 23:00 03:00 07:38 Temp 98.3 97.9 97.8 98.3 97.9 97.8 Pulse 71 83 87 Resp 20 B/P (MAP) 133/62 (85) 154/68 (96) 153/68 (96) Pulse Ox 86 93 92 88 O2 Delivery Nasal Cannula Nasal Cannula Nasal Cannula Nasal Cannula O2 Flow Rate 5.0 5.0 5.0 5.0 9/2108/11/19 08/11/19 08/11/19 08:00 08:30 09:14 10:53 Temp 98.4 98.4 Pulse 103 88 Resp 20 B/P (MAP) 153/68 132/60 (84) Pulse Ox 95 92 O2 Delivery Nasal Cannula Nasal Cannula Nasal Cannula O2 Flow Rate 5.0 5.0 5.0 08/11/19 11:39 Pulse Ox 95 O2 Delivery Nasal Cannula O2 Flow Rate 5.0 Intake and Output 08/10/19 08/10/19 08/11/19 15:00 23:00 07:00 Intake Total 1100 ml Output Total 900 ml 950 ml 210 ml Balance -900 ml 150 ml -210 ml Nutrition Consultation Dietary Evaluation: Recommendations by RD: Protein supplementation Comments: Continue w/cardiac diet as ordered Continue w/Ensure BID (chocolate() REC: MVI q day, Vit C 500 mg q day Expected Outcomes/Goals: PO intake to meet >75% est needs - met, goal ongoing Malnutrition Findings: Body Fat Depletion (Non Severe: Mild Depletion Weight Status: Appropriate FLORENCE SHERWOOD MD Aug 11, 2019 14:34
[2019-08-11 14:48] VITALS: BP 106/59
[2019-08-11] MEDS: ENOXAPARIN 40 MG/0.4 ML SYRINGE. SQ SCH (17:23)
[2019-08-11 19:00] VITALS: BP 118/66
[2019-08-11] MEDS: ATORVASTATIN CALCIUM 40 MG TABLET. PO SCH (19:43)
[2019-08-11] MEDS: LATANOPROST 0.005% OPHTH SOLUTION 2.5ML BOTTLE. OU SCH (20:45)
[2019-08-11 22:57] VITALS: BP 112/62
[2019-08-12 03:13] VITALS: BP 124/73
[2019-08-12 06:28] LABS: BASO % 0 % (0-3); EOS % 0 % (0-3); HEMATOCRIT 34.7 % (36.0-47.0); HEMOGLOBIN 11.4 g/dL (12.0-15.5); LYMPH # 0.4 x10^3/uL (1.0-4.8); LYMPH % 6 % (24-48); MEAN CORPUSCULAR HEMOGLOBIN 30 pg (25-35); MEAN CORPUSCULAR HGB CONC 33 g/dL (31-37); MEAN CORPUSCULAR VOLUME 92 fL (79-100); MONO # 0.7 x10^3/uL (0.0-1.1); MONO % 9 % (0-9); NEUT # 6.2 x10^3/uL (1.8-7.7); NEUT % 85 % (31-73); PLATELET COUNT 167 x10^3/uL (140-400); RED BLOOD COUNT 3.77 x10^6/uL (3.50-5.40); RED CELL DISTRIBUTION WIDTH 16.4 % (11.5-14.5); WHITE BLOOD COUNT 7.2 x10^3/uL (4.0-11.0)
[2019-08-12] MEDS: PANTOPRAZOLE 40 MG TABLET.DR. PO SCH (06:45)
[2019-08-12 06:57] VITALS: BP 150/75
[2019-08-12] MEDS: IPRATRPIUM/ALBUTEROL 0.5/2.5MG 3 ML NEBU. NEB SCH ×4 (07:39→19:34)
[2019-08-12] MEDS: LACTOBACILLUS RHAMNOSUS GG 1 CAPSULE. PO SCH ×2 (07:55→20:42)
[2019-08-12] MEDS: MULTIVITAMIN with MINERAL TABLET. PO SCH (07:55)
[2019-08-12] MEDS: NICOTINE 14MG PATCH. TD SCH (07:55)
[2019-08-12] MEDS: ASPIRIN CHEWABLE 81 MG TABLET. PO SCH (07:55)
[2019-08-12] MEDS: CALCIUM CARB/VIT D3 500/200 TABLET. PO SCH (07:55)
[2019-08-12] MEDS: ASCORBIC ACID 500 MG TABLET PO SCH (07:56)
[2019-08-12] MEDS: BRIMONIDINE 0.2% OPHTH SOLUTION 5ML BOTTLE. OS SCH ×2 (07:56→20:42)
[2019-08-12] MEDS: methylPREDNISolone SOD SUCC PF 40 MG/ML VIAL. IV SCH (07:56)
[2019-08-12] MEDS: FUROSEMIDE 40 MG/4 ML VIAL. IVP SCH (07:57)
[2019-08-12 10:36] VITALS: BP 120/64
--- NOTE | 2019-08-12 12:24 | PDOC ---
PULMONARY PROGRESS NOTES Subjective Pt. is up to chair this am. Currently on 5 liters N/C. Reports improvement in breathing S/P thoracentesis Left side on 07/30/19 Vitals Vital Signs Date Time Temp Pulse Resp B/P (MAP) Pulse Ox O2 Delivery O2 Flow Rate FiO2 08/12/19 11:45 98 Nasal Cannula 5.0 08/12/19 10:36 98.2 86 18 120/64 (82) 98.2 ROS: No Nausea, No Chest Pain, No Increase Cough General: Alert, Oriented X4, No acute distress Lungs: Clear, Other (decreased breath sounds, scattered wheezing) Cardiovascular: S1, S2 Abdomen: Soft, Non-tender Neuro Exam: Alert Extremities: Other (trace BLE edema ) Skin: Warm, Dry Labs Laboratory Tests Test 08/11/19 04:00 08/11/19 05:00 08/12/19 05:50 White Blood Count 8.6 x10^3/uL (4.0-11.0) 7.2 x10^3/uL (4.0-11.0) Red Blood Count 3.68 x10^6/uL (3.50-5.40) 3.77 x10^6/uL (3.50-5.40) Hemoglobin 11.0 g/dL (12.0-15.5) 11.4 g/dL (12.0-15.5) Hematocrit 34.1 % (36.0-47.0) 34.7 % (36.0-47.0) Mean Corpuscular Volume 93 fL (79-100) 92 fL (79-100) Mean Corpuscular Hemoglobin 30 pg (25-35) 30 pg (25-35) Mean Corpuscular Hemoglobin Concent 32 g/dL (31-37) 33 g/dL (31-37) Red Cell Distribution Width 16.6 % (11.5-14.5) 16.4 % (11.5-14.5) Platelet Count 174 x10^3/uL (140-400) 167 x10^3/uL (140-400) Neutrophils (%) (Auto) 91 % (31-73) 85 % (31-73) Lymphocytes (%) (Auto) 2 % (24-48) 6 % (24-48) Monocytes (%) (Auto) 7 % (0-9) 9 % (0-9) Eosinophils (%) (Auto) 0 % (0-3) 0 % (0-3) Basophils (%) (Auto) 0 % (0-3) 0 % (0-3) Neutrophils # (Auto) 7.8 x10^3/uL (1.8-7.7) 6.2 x10^3/uL (1.8-7.7) Lymphocytes # (Auto) 0.2 x10^3/uL (1.0-4.8) 0.4 x10^3/uL (1.0-4.8) Monocytes # (Auto) 0.6 x10^3/uL (0.0-1.1) 0.7 x10^3/uL (0.0-1.1) Eosinophils # (Auto) 0.0 x10^3/uL (0.0-0.7) 0.0 x10^3/uL (0.0-0.7) Basophils # (Auto) 0.0 x10^3/uL (0.0-0.2) 0.0 x10^3/uL (0.0-0.2) Sodium Level 139 mmol/L (136-145) Potassium Level 3.8 mmol/L (3.5-5.1) Chloride Level 97 mmol/L (98-107) Carbon Dioxide Level 39 mmol/L (21-32) Anion Gap 3 (6-14) Blood Urea Nitrogen 47 mg/dL (7-20) Creatinine 1.2 mg/dL (0.6-1.0) Estimated GFR (Cockcroft-Gault) 43.7 Glucose Level 164 mg/dL (70-99) Calcium Level 9.5 mg/dL (8.5-10.1) Magnesium Level 2.1 mg/dL (1.8-2.4) Laboratory Tests Test 08/12/19 05:50 White Blood Count 7.2 x10^3/uL (4.0-11.0) Red Blood Count 3.77 x10^6/uL (3.50-5.40) Hemoglobin 11.4 g/dL (12.0-15.5) Hematocrit 34.7 % (36.0-47.0) Mean Corpuscular Volume 92 fL (79-100) Mean Corpuscular Hemoglobin 30 pg (25-35) Mean Corpuscular Hemoglobin Concent 33 g/dL (31-37) Red Cell Distribution Width 16.4 % (11.5-14.5) Platelet Count 167 x10^3/uL (140-400) Neutrophils (%) (Auto) 85 % (31-73) Lymphocytes (%) (Auto) 6 % (24-48) Monocytes (%) (Auto) 9 % (0-9) Eosinophils (%) (Auto) 0 % (0-3) Basophils (%) (Auto) 0 % (0-3) Neutrophils # (Auto) 6.2 x10^3/uL (1.8-7.7) Lymphocytes # (Auto) 0.4 x10^3/uL (1.0-4.8) Monocytes # (Auto) 0.7 x10^3/uL (0.0-1.1) Eosinophils # (Auto) 0.0 x10^3/uL (0.0-0.7) Basophils # (Auto) 0.0 x10^3/uL (0.0-0.2) Medications Active Scripts Medications Dose Route/Sig Max Daily Dose Days Date Category Protonix (Pantoprazole Sodium) 20 Mg Tablet.dr 20 Mg PO DAILY 08/07/19 Reported Lumigan (Bimatoprost) 2.5 Ml Drops 1 Drop EACHEYE QHS 07/02/19 Reported Aspirin 81 Mg Tab.chew 81 Mg PO DAILY 06/27/19 Reported Simvastatin 80 Mg Tablet 80 Mg PO HS 04/14/17 Reported Citracal + D Er Tablet (Calcium Carb & Cit/Vitamin D3) 1 Each Tablet.er 1 Each PO DAILY 04/14/17 Reported Alphagan P (Brimonidine Tartrate) 5 Ml Drops 1 Drop OS BID 04/14/17 Reported Evista (Raloxifene Hcl) 60 Mg Tablet 60 Mg PO DAILY 04/14/17 Reported Amlodipine Besylate 10 Mg Tablet 10 Mg PO DAILY 04/14/17 Reported Comments CXR 08/11 Left effusion greatly diminished. right effusion persists. Impression . 1. Acute hypoxic respiratory failure secondary to acute on chronic diastolic heart failure, improving 2. Abnormal chest x-ray with bilateral pleural effusion and interstitial markings consistent with congestive heart failure, improving but not resolved 3. ECHO in 07/09: There is mild to moderate concentric left ventricular hypertrophy. The Ejection Fraction is 50-55%. There is normal LV segmental wall motion. Grade I-abnormal relaxation pattern. 4. Chronic obstructive pulmonary disease could be severe. Plan . 1. Wean oxygen today as tolerated keeping saturation above 90%. 2. continued diuresis per cardiology 3. S/P left thoracentesis , serosanguineous drainage on 08/09/19 , LDH consistent with transudate, cytology negative. follow fluid results 4. PRN bronchodilators. 5. Taper steroids, 6. currently off ABX 7. Would keep in negative fluid balance. Will repeat CXR in particular to make sure radiographic improvement. CT if that does not happen 8. discussed importance of complete smoking cessation and techniques. 9. PFTs after discharge Discussed with NOE COX MD Aug 12, 2019 12:24
[2019-08-12 14:25] VITALS: BP 122/77
--- NOTE | 2019-08-12 14:38 | RAD ---
Exam performed: One view chest HISTORY: Cough, shortness of breath DATE OF SERVICE: 08/12/2019. COMPARISON: 08/11/2019. FINDINGS: Heart size and mediastinal silhouette is within limits of normal. Pulmonary vascularity remains congested. Prominent interstitial markings in both perihilar regions and bibasilar opacities appear slightly increased. Small bilateral pleural effusions. IMPRESSION: Increase in central vascular congestion and bilateral perihilar and basilar opacities and small pleural effusions. Findings are perhaps related to CHF or infiltrates. Electronically signed by: Mitzy Merino MD (08/12/2019 2:35 PM) [facility]
--- NOTE | 2019-08-12 16:42 | PDOC ---
PROGRESS NOTES Chief Complaint Chief Complaint . 1. Acute hypoxic respiratory failure 2. acute on chronic diastolic heart failure. 3. bilateral pleural effusion and interstitial markings consistent with congestive heart failure. 4. COPD - possible severe, Shortness of breath, leg swelling, respiratory distress History of Present Illness History of Present Illness 08/12, she is frustrated with lack of improvement, I agreed with her that she is very ill, Continue present oxygen. rigoberto as able CT scan was discussed yesterday, I ordered for today as she thought she would benefit from more information and thought we are not doing enough to ensure that she improves, I discussed that with her 5 L oxygen req. and inability to walk > 25 feet, that at this time, her prognosis was very poor. Vitals Vitals Vital Signs Date Time Temp Pulse Resp B/P (MAP) Pulse Ox O2 Delivery O2 Flow Rate FiO2 08/12/19 15:28 98 Nasal Cannula 5.0 08/12/19 14:25 98.3 82 18 122/77 (92) 98.3 Physical Exam Physical Exam VITALS: Within normal limits and are stable. GENERAL: No apparent distress. Alert and oriented. HEENT: Head is normocephalic, atraumatic, pupils were equally round and reactive to light and accommodation. NECK: Supple, no JVD, no thyromegaly was noted. LUNGS: Clear to auscultation in all lung armstrong without rhonchi or wheezing. She has diffuse crackles. HEART: RRR, S1, S2 present. Peripheral pulses intact. She has systolic ejection murmur, intermittently tachycardic. ABDOMEN: Soft, nontender. Positive bowel sounds no organomegaly, normal bowel sounds. EXTREMITIES: Without any cyanosis, clubbing, or edema. Pedal pulses intact, Homans sign is negative. NEUROLOGIC: Normal speech, normal tone. A & O x3, moves all extremities, no obvious focal deficits. She is extremely weak. PSYCHIATRIC: She is depressed. SKIN: No ulcerations or rashes, good skin turgor, no jaundice. VASCULAR: Good capillary refill, neurovascular bundle appears to be intact. General: Alert, Oriented X3, Cooperative, No acute distress, mild distress Heart: Regular rate (SR with WAP), Other (4/6 systolic murmur to MARTELL border; diastolic murmur to apical region 5/6) Lungs: Clear, Other (decreased breath sounds, scattered wheezing) Abdomen: Soft, No tenderness Extremities: No cyanosis, Other (2-3+ bilateral LE pitting edema) Skin: No breakdown, No significant lesion Labs LABS Laboratory Tests Test 08/12/19 05:50 White Blood Count 7.2 x10^3/uL (4.0-11.0) Red Blood Count 3.77 x10^6/uL (3.50-5.40) Hemoglobin 11.4 g/dL (12.0-15.5) Hematocrit 34.7 % (36.0-47.0) Mean Corpuscular Volume 92 fL (79-100) Mean Corpuscular Hemoglobin 30 pg (25-35) Mean Corpuscular Hemoglobin Concent 33 g/dL (31-37) Red Cell Distribution Width 16.4 % (11.5-14.5) Platelet Count 167 x10^3/uL (140-400) Neutrophils (%) (Auto) 85 % (31-73) Lymphocytes (%) (Auto) 6 % (24-48) Monocytes (%) (Auto) 9 % (0-9) Eosinophils (%) (Auto) 0 % (0-3) Basophils (%) (Auto) 0 % (0-3) Neutrophils # (Auto) 6.2 x10^3/uL (1.8-7.7) Lymphocytes # (Auto) 0.4 x10^3/uL (1.0-4.8) Monocytes # (Auto) 0.7 x10^3/uL (0.0-1.1) Eosinophils # (Auto) 0.0 x10^3/uL (0.0-0.7) Basophils # (Auto) 0.0 x10^3/uL (0.0-0.2) Assessment and Plan Assessmemt and Plan Problems Medical Problems: (1) Acute on chronic diastolic (congestive) heart failure Status: Acute (2) CAD (coronary artery disease) Status: Chronic (3) COPD (chronic obstructive pulmonary disease) Status: Chronic (4) HLD (hyperlipidemia) Status: Chronic (5) HTN (hypertension) Status: Chronic (6) PAD (peripheral artery disease) Status: Chronic (7) Respiratory failure Status: Acute Comment Review of Relevant I have reviewed the following items emory (where applicable) has been applied. Labs Laboratory Tests Test 08/11/19 04:00 08/11/19 05:00 08/12/19 05:50 White Blood Count 8.6 x10^3/uL (4.0-11.0) 7.2 x10^3/uL (4.0-11.0) Red Blood Count 3.68 x10^6/uL (3.50-5.40) 3.77 x10^6/uL (3.50-5.40) Hemoglobin 11.0 g/dL (12.0-15.5) 11.4 g/dL (12.0-15.5) Hematocrit 34.1 % (36.0-47.0) 34.7 % (36.0-47.0) Mean Corpuscular Volume 93 fL (79-100) 92 fL (79-100) Mean Corpuscular Hemoglobin 30 pg (25-35) 30 pg (25-35) Mean Corpuscular Hemoglobin Concent 32 g/dL (31-37) 33 g/dL (31-37) Red Cell Distribution Width 16.6 % (11.5-14.5) 16.4 % (11.5-14.5) Platelet Count 174 x10^3/uL (140-400) 167 x10^3/uL (140-400) Neutrophils (%) (Auto) 91 % (31-73) 85 % (31-73) Lymphocytes (%) (Auto) 2 % (24-48) 6 % (24-48) Monocytes (%) (Auto) 7 % (0-9) 9 % (0-9) Eosinophils (%) (Auto) 0 % (0-3) 0 % (0-3) Basophils (%) (Auto) 0 % (0-3) 0 % (0-3) Neutrophils # (Auto) 7.8 x10^3/uL (1.8-7.7) 6.2 x10^3/uL (1.8-7.7) Lymphocytes # (Auto) 0.2 x10^3/uL (1.0-4.8) 0.4 x10^3/uL (1.0-4.8) Monocytes # (Auto) 0.6 x10^3/uL (0.0-1.1) 0.7 x10^3/uL (0.0-1.1) Eosinophils # (Auto) 0.0 x10^3/uL (0.0-0.7) 0.0 x10^3/uL (0.0-0.7) Basophils # (Auto) 0.0 x10^3/uL (0.0-0.2) 0.0 x10^3/uL (0.0-0.2) Sodium Level 139 mmol/L (136-145) Potassium Level 3.8 mmol/L (3.5-5.1) Chloride Level 97 mmol/L (98-107) Carbon Dioxide Level 39 mmol/L (21-32) Anion Gap 3 (6-14) Blood Urea Nitrogen 47 mg/dL (7-20) Creatinine 1.2 mg/dL (0.6-1.0) Estimated GFR (Cockcroft-Gault) 43.7 Glucose Level 164 mg/dL (70-99) Calcium Level 9.5 mg/dL (8.5-10.1) Magnesium Level 2.1 mg/dL (1.8-2.4) Laboratory Tests Test 08/12/19 05:50 White Blood Count 7.2 x10^3/uL (4.0-11.0) Red Blood Count 3.77 x10^6/uL (3.50-5.40) Hemoglobin 11.4 g/dL (12.0-15.5) Hematocrit 34.7 % (36.0-47.0) Mean Corpuscular Volume 92 fL (79-100) Mean Corpuscular Hemoglobin 30 pg (25-35) Mean Corpuscular Hemoglobin Concent 33 g/dL (31-37) Red Cell Distribution Width 16.4 % (11.5-14.5) Platelet Count 167 x10^3/uL (140-400) Neutrophils (%) (Auto) 85 % (31-73) Lymphocytes (%) (Auto) 6 % (24-48) Monocytes (%) (Auto) 9 % (0-9) Eosinophils (%) (Auto) 0 % (0-3) Basophils (%) (Auto) 0 % (0-3) Neutrophils # (Auto) 6.2 x10^3/uL (1.8-7.7) Lymphocytes # (Auto) 0.4 x10^3/uL (1.0-4.8) Monocytes # (Auto) 0.7 x10^3/uL (0.0-1.1) Eosinophils # (Auto) 0.0 x10^3/uL (0.0-0.7) Basophils # (Auto) 0.0 x10^3/uL (0.0-0.2) Microbiology 08/10/19 Anaerobic/Aerobic Culture, Resulted Pending 08/10/19 Anaerobic Culture Result 1 (BENNY), Resulted Pending 08/10/19 Aerobic Culture, Resulted Pending 08/10/19 Aerobic Culture Result 1 (BENNY), Resulted Pending 08/10/19 Gram Stain - Final, Resulted 08/10/19 Gram Stain Result 1 (BENNY) - Final, Resulted 08/10/19 Gram Stain Result 2 (BENNY) - Final, Resulted Medications Current Medications Amlodipine Besylate (Norvasc) 10 mg DAILY PO Last administered on 08/08/19at 08:28; Start 08/07/19 at 09:00; Stop 08/08/19 at 11:59; Status DC Aspirin (Children'S Aspirin) 81 mg DAILY PO Last administered on 08/12/19 07:57; Start 08/07/19 at 09:00 Latanoprost (Xalatan) 1 drop QHS OU Last administered on 08/11/19at 20:45; Start 08/07/19 at 21:00 Brimonidine Tartrate (Alphagan) 1 drop BID OS Last administered on 08/12/19at 07:57; Start 08/07/19 at 09:00 Calcium/Vitamin D (Oscal D 500mg/ 200uts) 1 tab [id number] PO Last administered on 08/12/19at 07:57; Start 08/07/19 at 08:00 Atorvastatin Calcium (Lipitor) 40 mg QHS PO Last administered on 08/11/19at 19:45; Start 08/07/19 at 21:00 Levofloxacin/ Dextrose 100 ml @ 100 mls/hr QHS IV Last administered on 08/08/19at 20:55; Start 08/07/19 at 01:00; Stop 08/09/19 at 17:18; Status DC Acetaminophen/ Hydrocodone Bitart (Lortab 5/325) 1 tab PRN Q4HRS PRN PO MODERATE PAIN 4-6; Start 08/07/19 at 00:30 Acetaminophen (Tylenol) 650 mg PRN Q6HRS PRN PO MILD PAIN / TEMP Last administered on 08/07/19at 13:11; Start 08/07/19 at 00:30 Methylprednisolone Sodium Succinate (SOLU-Medrol 40MG VIAL) 60 mg Q8HRS IV Last administered on 08/07/19at 05:53; Start 08/07/19 at 06:00; Stop 08/07/19 at 12:42; Status DC Albuterol/ Ipratropium (Duoneb) 3 ml RTQID NEB Last administered on 08/12/19at 15:28; Start 08/07/19 at 08:00 Albuterol Sulfate (Ventolin Neb Soln) 2.5 mg PRN Q4HRS PRN NEB SHORTNESS OF BREATH; Start 08/07/19 at 00:30 Furosemide (Lasix) 40 mg DAILY IVP Last administered on 08/07/19at 08:34; Start 08/07/19 at 09:00; Stop 08/07/19 at 09:21; Status DC Influenza Virus Vaccine Quadrival (Afluria Quad 2019-20 (3yr Up) Syringe) 0.5 ml ONCE ONCE VAX IM ; Start 08/07/19 at 02:00; Stop 08/07/19 at 02:01; Status UNV Atorvastatin Calcium (Lipitor) 40 mg 1X ONCE PO Last administered on 08/07/19at 02:01; Start 08/07/19 at 02:00; Stop 08/07/19 at 02:01; Status DC Nicotine (Nicoderm Cq 14mg) 1 patch DAILY TD Last administered on 08/12/19at 07:57; Start 08/07/19 at 07:00 Pantoprazole Sodium (Protonix) 40 mg DAILYAC PO Last administered on 08/12/19at 06:45; Start 08/07/19 at 09:30 Lactobacillus Rhamnosus (Culturelle) 1 cap BID PO Last administered on at 07:57; Start 08/07/19 at 10:00 Furosemide (Lasix) 40 mg [id number] IVP Last administered on 08/08/19at 08:28; Start 08/07/19 at 16:00; Stop 08/08/19 at 11:56; Status DC Methylprednisolone Sodium Succinate (SOLU-Medrol 40MG VIAL) 30 mg Q8HRS IV Last administered on 08/10/19 06:24; Start 08/07/19 at 14:00; Stop 08/10/19 at 10:18; Status DC Magnesium Sulfate 50 ml @ 25 mls/hr 1X ONCE IV Last administered on 08/08/19at 12:09; Start 08/08/19 at 11:00; Stop 08/08/19 at 12:59; Status DC Furosemide (Lasix) 40 mg DAILY IVP Last administered on 08/12/19 07:57; Start 08/08/19 at 12:00 Diltiazem HCl (Cardizem 24hr Cd) 180 mg DAILY PO Last administered on 08/12/19 07:57; Start 08/08/19 at 12:00 Enoxaparin Sodium (Lovenox 40mg Syringe) 40 mg Q24H SQ Last administered on 08/08/19at 16:20; Start 08/08/19 at 17:00; Stop 08/09/19 at 09:30; Status DC Enoxaparin Sodium (Lovenox 40mg Syringe) 40 mg Q24H SQ Last administered on 08/11/19at 17:23; Start 08/10/19 at 17:00 Methylprednisolone Sodium Succinate (SOLU-Medrol 40MG VIAL) 40 mg DAILY IV Last administered on 08/12/19at 07:57; Start 08/10/19 at 10:30 Multivitamins (Thera M Plus) 1 tab DAILY PO Last administered on 08/12/19 07:57; Start 08/10/19 at 14:30 Ascorbic Acid (Vitamin C) 500 mg DAILY PO Last administered on 08/12/19at 07:57; Start 08/10/19 at 14:30 Active Scripts Active Reported Protonix (Pantoprazole Sodium) 20 Mg Tablet.dr 20 Mg PO DAILY Lumigan (Bimatoprost) 2.5 Ml Drops 1 Drop EACHEYE QHS Aspirin 81 Mg Tab.chew 81 Mg PO DAILY Simvastatin 80 Mg Tablet 80 Mg PO HS Citracal + D Er Tablet (Calcium Carb & Cit/Vitamin D3) 1 Each Tablet.er 1 Each PO DAILY Alphagan P (Brimonidine Tartrate) 5 Ml Drops 1 Drop OS BID Evista (Raloxifene Hcl) 60 Mg Tablet 60 Mg PO DAILY Amlodipine Besylate 10 Mg Tablet 10 Mg PO DAILY Vitals/I & O Vital Sign - Last 24 Hours 08/11/19 08/11/19 08/11/19 08/11/19 19:00 19:52 20:20 22:57 Temp 97.2 97.5 97.2 97.5 Pulse 81 81 Resp 16 16 B/P (MAP) 118/66 (83) 112/62 (79) Pulse Ox 91 98 95 O2 Delivery Nasal Cannula Nasal Cannula Nasal Cannula Nasal Cannula O2 Flow Rate 5.0 5.0 5.0 5.0 08/12/19 08/12/19 08/12/19 08/12/19 00:15 03:13 06:57 07:40 Temp 96.3 97.9 96.3 97.9 Pulse 83 80 Resp 18 18 B/P (MAP) 124/73 (90) 150/75 (100) Pulse Ox 94 95 98 O2 Delivery Nasal Cannula Nasal Cannula Nasal Cannula Nasal Cannula O2 Flow Rate 5.0 5.0 5.0 5.0 08/12/19 08/12/19 08/12/19 08/12/19 07:57 08:00 10:36 11:45 Temp 98.2 98.2 Pulse 80 86 Resp 18 B/P (MAP) 150/75 120/64 (82) Pulse Ox 99 98 O2 Delivery Nasal Cannula Nasal Cannula Nasal Cannula O2 Flow Rate 5.0 5.0 5.0 08/12/19 08/12/19 14:25 15:28 Temp 98.3 98.3 Pulse 82 Resp 18 B/P (MAP) 122/77 (92) Pulse Ox 95 98 O2 Delivery Nasal Cannula Nasal Cannula O2 Flow Rate 5.0 5.0 Intake and Output 08/11/19 08/11/19 08/12/19 15:00 23:00 07:00 Intake Total 120 ml 500 ml Output Total 1150 ml Balance 120 ml -650 ml Nutrition Consultation Dietary Evaluation: Recommendations by RD: Protein supplementation Comments: Continue w/cardiac diet as ordered Continue w/Ensure BID (chocolate() REC: MVI q day, Vit C 500 mg q day Expected Outcomes/Goals: PO intake to meet >75% est needs - met, goal ongoing Malnutrition Findings: Body Fat Depletion (Non Severe: Mild Depletion Weight Status: Appropriate FLORENCE SHERWOOD MD Aug 12, 2019 16:42
[2019-08-12] MEDS: ENOXAPARIN 40 MG/0.4 ML SYRINGE. SQ SCH (16:48)
--- NOTE | 2019-08-12 18:01 | PDOC ---
CARDIOLOGY PROGRESS NOTE SUBJECTIVE: No new events. OBJECTIVE: Vital Signs/I&O: Vital Signs Date Time Temp Pulse Resp B/P (MAP) Pulse Ox O2 Delivery O2 Flow Rate FiO2 08/12/19 15:28 98 Nasal Cannula 5.0 08/12/19 14:25 98.3 82 18 122/77 (92) 98.3 I & O 08/11/19 08/11/19 08/12/19 15:00 23:00 07:00 Intake Total 120 ml 500 ml Output Total 1150 ml Balance 120 ml -650 ml Objective: a/o x 3. continues to wheeze no edema. normal heart tones CURRENT MEDICATIONS: reviewed DIAGNOSTIC TESTING: reviewed, ct chest pending Labs: Laboratory Tests 08/12/19 05:50 Laboratory Tests Test 08/12/19 05:50 White Blood Count 7.2 x10^3/uL (4.0-11.0) Red Blood Count 3.77 x10^6/uL (3.50-5.40) Hemoglobin 11.4 g/dL (12.0-15.5) L Hematocrit 34.7 % (36.0-47.0) L Mean Corpuscular Volume 92 fL (79-100) Mean Corpuscular Hemoglobin 30 pg (25-35) Mean Corpuscular Hemoglobin Concent 33 g/dL (31-37) Red Cell Distribution Width 16.4 % (11.5-14.5) H Platelet Count 167 x10^3/uL (140-400) Neutrophils (%) (Auto) 85 % (31-73) H Lymphocytes (%) (Auto) 6 % (24-48) L Monocytes (%) (Auto) 9 % (0-9) Eosinophils (%) (Auto) 0 % (0-3) Basophils (%) (Auto) 0 % (0-3) Neutrophils # (Auto) 6.2 x10^3/uL (1.8-7.7) Lymphocytes # (Auto) 0.4 x10^3/uL (1.0-4.8) L Monocytes # (Auto) 0.7 x10^3/uL (0.0-1.1) Eosinophils # (Auto) 0.0 x10^3/uL (0.0-0.7) Basophils # (Auto) 0.0 x10^3/uL (0.0-0.2) ASSESSMENT: 1. Acute on chronic diastolic HF, acute on chronic resp failure due to COPD 2. Failure to thrive 3. PAD severe PLAN: 1. Will await CT chest report. -Will likely need repeat thora if this is a recurrent pleural effusion, if PNA or consolidation, may need abx changes. 2. Can consider R/LHC if in improvement in 48 hours Supportive care. SANYA DELONG MD Aug 12, 2019 18:01
--- NOTE | 2019-08-12 18:02 | RAD ---
CT chest without contrast 08/12/2019. Reason for exam: CHF and pleural effusions. Worsening status. Helical noncontrast images were performed. Sagittal and coronal reconstructions were obtained. Exposure: One or more of the following individualized dose reduction techniques were utilized for this examination: 1. Automated exposure control 2. Adjustment of the mA and/or kV according to patient size 3. Use of iterative reconstruction technique. FINDINGS: There are moderate-sized pleural effusions bilaterally causing some compressive atelectasis. There is also some atelectasis involving the right middle lobe. There is probably mild interstitial edema at the lung bases. Some emphysema is seen towards the apices. No other significant pulmonary parenchymal abnormality is apparent. The central airways show no obstruction. No definite adenopathy is seen. Evaluation is limited somewhat by lack of IV contrast. There may be mildly enlarged mediastinal nodes, which can be seen in the presence of CHF. There is dense calcification in the area of the mitral annulus. There is no significant pericardial fluid. Images through the upper abdomen show no abnormality. There is a small hiatal hernia. IMPRESSION: There are moderate-sized pleural effusions bilaterally with adjacent compressive atelectasis. There may also be mild interstitial edema in the lungs. These findings are consistent with a history of CHF. Electronically signed by: Bobo Day Jr., MD (08/12/2019 5:59 PM) [facility]
[2019-08-12 19:05] VITALS: BP 98/64
[2019-08-12] MEDS: ATORVASTATIN CALCIUM 40 MG TABLET. PO SCH (20:42)
[2019-08-12] MEDS: LATANOPROST 0.005% OPHTH SOLUTION 2.5ML BOTTLE. OU SCH (20:42)
[2019-08-12 22:35] VITALS: BP 111/63
[2019-08-13 02:50] VITALS: BP 132/73
[2019-08-13 07:00] VITALS: BP 84/58
[2019-08-13 07:44] LABS: BASO % 0 % (0-3); EOS % 0 % (0-3); HEMATOCRIT 35.3 % (36.0-47.0); HEMOGLOBIN 11.4 g/dL (12.0-15.5); LYMPH # 0.6 x10^3/uL (1.0-4.8); LYMPH % 7 % (24-48); MEAN CORPUSCULAR HEMOGLOBIN 30 pg (25-35); MEAN CORPUSCULAR HGB CONC 32 g/dL (31-37); MEAN CORPUSCULAR VOLUME 93 fL (79-100); MONO # 0.8 x10^3/uL (0.0-1.1); MONO % 10 % (0-9); NEUT # 6.2 x10^3/uL (1.8-7.7); NEUT % 82 % (31-73); PLATELET COUNT 155 x10^3/uL (140-400); RED CELL DISTRIBUTION WIDTH 16.5 % (11.5-14.5); WHITE BLOOD COUNT 7.5 x10^3/uL (4.0-11.0)
[2019-08-13] MEDS: IPRATRPIUM/ALBUTEROL 0.5/2.5MG 3 ML NEBU. NEB SCH ×4 (07:57→19:36)
[2019-08-13] MEDS: methylPREDNISolone SOD SUCC PF 40 MG/ML VIAL. IV SCH (08:55)
[2019-08-13] MEDS: ASPIRIN CHEWABLE 81 MG TABLET. PO SCH (08:55)
[2019-08-13] MEDS: ASCORBIC ACID 500 MG TABLET PO SCH (08:55)
[2019-08-13] MEDS: CALCIUM CARB/VIT D3 500/200 TABLET. PO SCH (08:55)
[2019-08-13] MEDS: MULTIVITAMIN with MINERAL TABLET. PO SCH (08:55)
[2019-08-13] MEDS: LACTOBACILLUS RHAMNOSUS GG 1 CAPSULE. PO SCH ×2 (08:55→22:11)
[2019-08-13] MEDS: PANTOPRAZOLE 40 MG TABLET.DR. PO SCH (08:55)
[2019-08-13] MEDS: NICOTINE 14MG PATCH. TD SCH (08:57)
[2019-08-13] MEDS: BRIMONIDINE 0.2% OPHTH SOLUTION 5ML BOTTLE. OS SCH ×2 (09:01→22:11)
[2019-08-13 11:00] VITALS: BP 121/69
--- NOTE | 2019-08-13 11:04 | PDOC ---
PULMONARY PROGRESS NOTES Subjective Pt. is up to chair this am. Currently on 5 liters N/C. Reports improvement in breathing S/P thoracentesis Left side on 07/30/19 Vitals Vital Signs Date Time Temp Pulse Resp B/P (MAP) Pulse Ox O2 Delivery O2 Flow Rate FiO2 08/13/19 08:00 Nasal Cannula 3.0 08/13/19 07:57 98 08/13/19 07:00 98.0 81 20 84/58 (67) 98.0 ROS: No Nausea, No Chest Pain, No Increase Cough General: Alert, Oriented X4, No acute distress Lungs: Other (decreased breath sounds) Cardiovascular: S1, S2 Abdomen: Soft, Non-tender Neuro Exam: Alert Extremities: Other (trace BLE edema ) Skin: Warm, Dry Labs Laboratory Tests Test 08/12/19 05:50 08/13/19 06:50 White Blood Count 7.2 x10^3/uL (4.0-11.0) 7.5 x10^3/uL (4.0-11.0) Red Blood Count 3.77 x10^6/uL (3.50-5.40) 3.80 x10^6/uL (3.50-5.40) Hemoglobin 11.4 g/dL (12.0-15.5) 11.4 g/dL (12.0-15.5) Hematocrit 34.7 % (36.0-47.0) 35.3 % (36.0-47.0) Mean Corpuscular Volume 92 fL (79-100) 93 fL (79-100) Mean Corpuscular Hemoglobin 30 pg (25-35) 30 pg (25-35) Mean Corpuscular Hemoglobin Concent 33 g/dL (31-37) 32 g/dL (31-37) Red Cell Distribution Width 16.4 % (11.5-14.5) 16.5 % (11.5-14.5) Platelet Count 167 x10^3/uL (140-400) 155 x10^3/uL (140-400) Neutrophils (%) (Auto) 85 % (31-73) 82 % (31-73) Lymphocytes (%) (Auto) 6 % (24-48) 7 % (24-48) Monocytes (%) (Auto) 9 % (0-9) 10 % (0-9) Eosinophils (%) (Auto) 0 % (0-3) 0 % (0-3) Basophils (%) (Auto) 0 % (0-3) 0 % (0-3) Neutrophils # (Auto) 6.2 x10^3/uL (1.8-7.7) 6.2 x10^3/uL (1.8-7.7) Lymphocytes # (Auto) 0.4 x10^3/uL (1.0-4.8) 0.6 x10^3/uL (1.0-4.8) Monocytes # (Auto) 0.7 x10^3/uL (0.0-1.1) 0.8 x10^3/uL (0.0-1.1) Eosinophils # (Auto) 0.0 x10^3/uL (0.0-0.7) 0.0 x10^3/uL (0.0-0.7) Basophils # (Auto) 0.0 x10^3/uL (0.0-0.2) 0.0 x10^3/uL (0.0-0.2) Laboratory Tests Test 08/13/19 06:50 White Blood Count 7.5 x10^3/uL (4.0-11.0) Red Blood Count 3.80 x10^6/uL (3.50-5.40) Hemoglobin 11.4 g/dL (12.0-15.5) Hematocrit 35.3 % (36.0-47.0) Mean Corpuscular Volume 93 fL (79-100) Mean Corpuscular Hemoglobin 30 pg (25-35) Mean Corpuscular Hemoglobin Concent 32 g/dL (31-37) Red Cell Distribution Width 16.5 % (11.5-14.5) Platelet Count 155 x10^3/uL (140-400) Neutrophils (%) (Auto) 82 % (31-73) Lymphocytes (%) (Auto) 7 % (24-48) Monocytes (%) (Auto) 10 % (0-9) Eosinophils (%) (Auto) 0 % (0-3) Basophils (%) (Auto) 0 % (0-3) Neutrophils # (Auto) 6.2 x10^3/uL (1.8-7.7) Lymphocytes # (Auto) 0.6 x10^3/uL (1.0-4.8) Monocytes # (Auto) 0.8 x10^3/uL (0.0-1.1) Eosinophils # (Auto) 0.0 x10^3/uL (0.0-0.7) Basophils # (Auto) 0.0 x10^3/uL (0.0-0.2) Medications Active Scripts Medications Dose Route/Sig Max Daily Dose Days Date Category Protonix (Pantoprazole Sodium) 20 Mg Tablet.dr 20 Mg PO DAILY 08/07/19 Reported Lumigan (Bimatoprost) 2.5 Ml Drops 1 Drop EACHEYE QHS 07/02/19 Reported Aspirin 81 Mg Tab.chew 81 Mg PO DAILY 06/27/19 Reported Simvastatin 80 Mg Tablet 80 Mg PO HS 04/14/17 Reported Citracal + D Er Tablet (Calcium Carb & Cit/Vitamin D3) 1 Each Tablet.er 1 Each PO DAILY 04/14/17 Reported Alphagan P (Brimonidine Tartrate) 5 Ml Drops 1 Drop OS BID 04/14/17 Reported Evista (Raloxifene Hcl) 60 Mg Tablet 60 Mg PO DAILY 04/14/17 Reported Amlodipine Besylate 10 Mg Tablet 10 Mg PO DAILY 04/14/17 Reported Comments CXR 08/11 Left effusion greatly diminished. right effusion persists. CT chest 08/12 reviewed Impression . 1. Acute hypoxic respiratory failure secondary to acute on chronic diastolic heart failure, 2. Abnormal chest x-ray with bilateral pleural effusion and interstitial markings consistent with congestive heart failure, ct chest 08/12 suggest ongoing CHF/ moderate effusions 3. ECHO in 07/09: There is mild to moderate concentric left ventricular hypertrophy. The Ejection Fraction is 50-55%. There is normal LV segmental wall motion. Grade I-abnormal relaxation pattern. 4. Chronic obstructive pulmonary disease could be severe. Plan . 1. Wean oxygen today as tolerated keeping saturation above 90%. 2. continued diuresis per cardiology 3. S/P left thoracentesis , serosanguineous drainage on 08/09/19 , LDH consistent with transudate, cytology negative. follow fluid results , right tap is also c/w transudate 4. PRN bronchodilators. 5. Taper steroids, 6. currently off ABX 7. Would keep in negative fluid balance. ct chest 08/12 suggest ongoing CHF/ moderate effusions. I do not think thoracentesis every other day would help anything. consider hospice eval 8. discussed importance of complete smoking cessation and techniques. 9. PFTs after discharge Discussed with WESTON PEREZ MD Aug 13, 2019 11:04
[2019-08-13] MEDS ORDERED: cefTRIAXone IV Push 1 GM VIAL. IVP SCH (12:00)
[2019-08-13] MEDS: FUROSEMIDE 40 MG/4 ML VIAL. IVP SCH (13:33)
--- NOTE | 2019-08-13 13:54 | PDOC ---
RACHEL ARCHIBALD INFORMATION [employer]ERK [employer] 08/13/19 1354: CARDIO Progress Notes Date and Time Date of Service 08/13/19 Time of Evaluation 1340 Subjective Subjective: No Chest Pain, No Palpitations, No Dizziness, Other (breathing slightly improved today) Vitals Vitals Vital Signs Date Time Temp Pulse Resp B/P (MAP) Pulse Ox O2 Delivery O2 Flow Rate FiO2 08/13/19 13:33 97 121/69 08/13/19 11:30 96 Nasal Cannula 3.0 08/13/19 11:00 98.0 20 98.0 Weight Weight [ ] Input and Output Intake and Output Intake and Output 08/13/19 07:00 Intake Total 1200 ml Output Total 2200 ml Balance -1000 ml Intake Oral 1200 ml Output Urine Total 2200 ml # Bowel Movements 1 Laboratory Labs Laboratory Tests Test 08/13/19 06:50 White Blood Count 7.5 x10^3/uL (4.0-11.0) Red Blood Count 3.80 x10^6/uL (3.50-5.40) Hemoglobin 11.4 g/dL (12.0-15.5) Hematocrit 35.3 % (36.0-47.0) Mean Corpuscular Volume 93 fL (79-100) Mean Corpuscular Hemoglobin 30 pg (25-35) Mean Corpuscular Hemoglobin Concent 32 g/dL (31-37) Red Cell Distribution Width 16.5 % (11.5-14.5) Platelet Count 155 x10^3/uL (140-400) Neutrophils (%) (Auto) 82 % (31-73) Lymphocytes (%) (Auto) 7 % (24-48) Monocytes (%) (Auto) 10 % (0-9) Eosinophils (%) (Auto) 0 % (0-3) Basophils (%) (Auto) 0 % (0-3) Neutrophils # (Auto) 6.2 x10^3/uL (1.8-7.7) Lymphocytes # (Auto) 0.6 x10^3/uL (1.0-4.8) Monocytes # (Auto) 0.8 x10^3/uL (0.0-1.1) Eosinophils # (Auto) 0.0 x10^3/uL (0.0-0.7) Basophils # (Auto) 0.0 x10^3/uL (0.0-0.2) Microbiology Micro Microbiology 08/10/19 Anaerobic/Aerobic Culture, Resulted Pending 08/10/19 Anaerobic Culture Result 1 (BENNY), Resulted Pending 08/10/19 Aerobic Culture - Final, Resulted 08/10/19 Aerobic Culture Result 1 (BENNY) - Final, Resulted 08/10/19 Gram Stain - Final, Resulted 08/10/19 Gram Stain Result 1 (BENNY) - Final, Resulted 08/10/19 Gram Stain Result 2 (BENNY) - Final, Resulted Physical Exam HEENT: Neck Supple W Full Motion Chest: Symmetric LUNGS: Other (diminished bases ) Heart: S1S2, RRR (SR) Abdomen: Soft N/T Extremities: No Calf Tenderness, Other (trace bilateral LE edema) Neurology: alert, oriented, follow commands Assessment Assessment 1. Acute on chronic diastolic CHF: multifactorial. LVEF 50-55%. CT chest with ongoing CHF/pleural effusions 2. Acute on chronic respiratory failure, multifactorial 3. CAD: clinically stable 4. PAD: no claudication symptoms 5. Valvular disease: mitral valve and aortic valve calcifications 6. Hypertension; controlled 7. Hyperlipidemia 8. Tobaccoism Recommendations Ongoing diuresis Would like to discusses further treatment options with Dr. Phillips. Discussed conservative versus aggressive measures. Wants to be full code Encouraged compliance with therapy Supportive care SANYA PHILLIPS MD 08/13/19 9717: CARDIO Progress Notes Plan Plan Patient seen and examined. Agree with above nurse practitioner note No acute events overnight. She continues to struggle with volume status. From a purely cardiac and respiratory perspective she has improved quite a bit. Nonetheless, she still has bilateral pleural effusions and moderate lower extremity edema Continue diuresis for now. Overall though she is made remarkable strides and we will plan for continued evaluation with regards to disposition to home versus rehabilitation. RACHEL ARCHIBALD APRN Aug 13, 2019 13:54 SANYA PHILLIPS MD Aug 13, 2019 18:47
[2019-08-13 15:00] VITALS: BP 104/69
--- NOTE | 2019-08-13 15:11 | PDOC2 ---
PALLIATIVE CARE Palliative Care Note Palliative Care Consult requested by Dr. Bateman to address goals of care/hospice. Medical Assessment per medical record; 1. Acute hypoxic respiratory failure secondary to acute on chronic diastolic heart failure, 2. Abnormal chest x-ray with bilateral pleural effusion and interstitial markings consistent with congestive heart failure, ct chest 08/12 suggest ongoing CHF/ moderate effusions 3. ECHO in 07/09: There is mild to moderate concentric left ventricular hypertrophy. The Ejection Fraction is 50-55%. There is normal LV segmental wall motion. Grade I-abnormal relaxation pattern. 4. Chronic obstructive pulmonary disease could be severe. Patient alert. Sitting up in bed, eating lunch. X- lEadio joined conversation. Reviewed above medical condition. Patient has son Gennaro who lives out of town. Will be here tomorrow. Patient states she is working with PT/OT. ----Refused treatment this am. Discussed options for care. participate in plan of care including PT/OT; continue aggressive care providing patient wants to continue to try to improve---wants to get stronger so will need to go to SNU for strengthening. Will consider this depending on recommendations of Dr. Phillips. Other options would be to continue treatment was some limitations such as resuscitation vs comfort care with support of hospice Discussed AD. Encouraged patient to complete document. Will discuss with Consuelo AIKEN. Discussed Code status including risks and benefits. She wants full resuscitation but "does not want to be like María Malcom." Wound not want to be left on ventilator for long period of time if she was not expected to improve. Encouraged patient to discuss with family and complete AD to name DPOA and identify what treatment would be acceptable. Plan: Continue current treatment plan. Will continue to support and address after patient meets with Dr. Phillips (per patient request) EMMANUEL SANTAMARIA Aug 13, 2019 15:11
--- NOTE | 2019-08-13 15:31 | PDOC ---
PROGRESS NOTES Chief Complaint Chief Complaint 1. Acute hypoxic respiratory failure 2. acute on chronic diastolic heart failure. 3. bilateral pleural effusion and interstitial markings consistent with congestive heart failure. 4. COPD - possible severe, 5. CKD 3 6. mod/severe malnutrition was POA 7. tobacco use disorder, ongoing History of Present Illness History of Present Illness 08/13, very frustrating meeting for me today, patient was abusive verbally to PT and OT and nursing. she was upset about not improvment, and was upset about how long things are taking to "get done" around here. she has a new laceration on her leg from the line of the george catheter, and she still refuses to have her george removed until she talks to Dr. Mckeon, I discussed her weakness, and her hypoxia and her lack of improvement, she refused a bath or shower yesterday and she is malodorous, she has refused PT and is angry and frustrated with staff, and wants to go home, I offered Hospice, and she was angry and proceeded to tell me what Hospice was about, and talk to me like I really have no medical training whatsoever. she has COPD, CHF, recurrent effusions with hypoxia and terminal weakness - and a bad attitude, I still recommend hospice and have consulted Palliative care Continue present oxygen. dannye as able Vitals Vitals Vital Signs Date Time Temp Pulse Resp B/P (MAP) Pulse Ox O2 Delivery O2 Flow Rate FiO2 08/13/19 13:33 97 121/69 08/13/19 11:30 96 Nasal Cannula 3.0 08/13/19 11:00 98.0 20 98.0 Physical Exam Physical Exam VITALS: Within normal limits and are stable. GENERAL: No apparent distress. Alert and oriented. HEENT: Head is normocephalic, atraumatic, pupils were equally round and reactive to light and accommodation. NECK: Supple, no JVD, no thyromegaly was noted. LUNGS: Clear to auscultation in all lung armstrong without rhonchi or wheezing. She has diffuse crackles. HEART: RRR, S1, S2 present. Peripheral pulses intact. She has systolic ejection murmur, intermittently tachycardic. ABDOMEN: Soft, nontender. Positive bowel sounds no organomegaly, normal bowel sounds. EXTREMITIES: Without any cyanosis, clubbing, or edema. Pedal pulses intact, Homans sign is negative. NEUROLOGIC: Normal speech, normal tone. A & O x3, moves all extremities, no obvious focal deficits. She is extremely weak. PSYCHIATRIC: She is depressed. SKIN: No ulcerations or rashes, good skin turgor, no jaundice. VASCULAR: Good capillary refill, neurovascular bundle appears to be intact. General: Alert, Oriented X3, Cooperative, No acute distress Heart: Regular rate (SR with WAP), No murmurs, Other (4/6 systolic murmur to MARTELL border; diastolic murmur to apical region 5/6) Lungs: Other (decreased breath sounds) Abdomen: Soft, No tenderness Extremities: No cyanosis, Other (2-3+ bilateral LE pitting edema) Skin: No breakdown, No significant lesion Labs LABS Laboratory Tests Test 08/13/19 06:50 White Blood Count 7.5 x10^3/uL (4.0-11.0) Red Blood Count 3.80 x10^6/uL (3.50-5.40) Hemoglobin 11.4 g/dL (12.0-15.5) Hematocrit 35.3 % (36.0-47.0) Mean Corpuscular Volume 93 fL (79-100) Mean Corpuscular Hemoglobin 30 pg (25-35) Mean Corpuscular Hemoglobin Concent 32 g/dL (31-37) Red Cell Distribution Width 16.5 % (11.5-14.5) Platelet Count 155 x10^3/uL (140-400) Neutrophils (%) (Auto) 82 % (31-73) Lymphocytes (%) (Auto) 7 % (24-48) Monocytes (%) (Auto) 10 % (0-9) Eosinophils (%) (Auto) 0 % (0-3) Basophils (%) (Auto) 0 % (0-3) Neutrophils # (Auto) 6.2 x10^3/uL (1.8-7.7) Lymphocytes # (Auto) 0.6 x10^3/uL (1.0-4.8) Monocytes # (Auto) 0.8 x10^3/uL (0.0-1.1) Eosinophils # (Auto) 0.0 x10^3/uL (0.0-0.7) Basophils # (Auto) 0.0 x10^3/uL (0.0-0.2) Review of Systems Review of Systems new leg wound weakness irritable Assessment and Plan Assessmemt and Plan Problems Medical Problems: (1) Acute on chronic diastolic (congestive) heart failure Status: Acute (2) CAD (coronary artery disease) Status: Chronic (3) COPD (chronic obstructive pulmonary disease) Status: Chronic (4) HLD (hyperlipidemia) Status: Chronic (5) HTN (hypertension) Status: Chronic (6) PAD (peripheral artery disease) Status: Chronic (7) Respiratory failure Status: Acute Comment Review of Relevant I have reviewed the following items emory (where applicable) has been applied. Labs Laboratory Tests Test 08/12/19 05:50 08/13/19 06:50 White Blood Count 7.2 x10^3/uL (4.0-11.0) 7.5 x10^3/uL (4.0-11.0) Red Blood Count 3.77 x10^6/uL (3.50-5.40) 3.80 x10^6/uL (3.50-5.40) Hemoglobin 11.4 g/dL (12.0-15.5) 11.4 g/dL (12.0-15.5) Hematocrit 34.7 % (36.0-47.0) 35.3 % (36.0-47.0) Mean Corpuscular Volume 92 fL (79-100) 93 fL (79-100) Mean Corpuscular Hemoglobin 30 pg (25-35) 30 pg (25-35) Mean Corpuscular Hemoglobin Concent 33 g/dL (31-37) 32 g/dL (31-37) Red Cell Distribution Width 16.4 % (11.5-14.5) 16.5 % (11.5-14.5) Platelet Count 167 x10^3/uL (140-400) 155 x10^3/uL (140-400) Neutrophils (%) (Auto) 85 % (31-73) 82 % (31-73) Lymphocytes (%) (Auto) 6 % (24-48) 7 % (24-48) Monocytes (%) (Auto) 9 % (0-9) 10 % (0-9) Eosinophils (%) (Auto) 0 % (0-3) 0 % (0-3) Basophils (%) (Auto) 0 % (0-3) 0 % (0-3) Neutrophils # (Auto) 6.2 x10^3/uL (1.8-7.7) 6.2 x10^3/uL (1.8-7.7) Lymphocytes # (Auto) 0.4 x10^3/uL (1.0-4.8) 0.6 x10^3/uL (1.0-4.8) Monocytes # (Auto) 0.7 x10^3/uL (0.0-1.1) 0.8 x10^3/uL (0.0-1.1) Eosinophils # (Auto) 0.0 x10^3/uL (0.0-0.7) 0.0 x10^3/uL (0.0-0.7) Basophils # (Auto) 0.0 x10^3/uL (0.0-0.2) 0.0 x10^3/uL (0.0-0.2) Laboratory Tests Test 08/13/19 06:50 White Blood Count 7.5 x10^3/uL (4.0-11.0) Red Blood Count 3.80 x10^6/uL (3.50-5.40) Hemoglobin 11.4 g/dL (12.0-15.5) Hematocrit 35.3 % (36.0-47.0) Mean Corpuscular Volume 93 fL (79-100) Mean Corpuscular Hemoglobin 30 pg (25-35) Mean Corpuscular Hemoglobin Concent 32 g/dL (31-37) Red Cell Distribution Width 16.5 % (11.5-14.5) Platelet Count 155 x10^3/uL (140-400) Neutrophils (%) (Auto) 82 % (31-73) Lymphocytes (%) (Auto) 7 % (24-48) Monocytes (%) (Auto) 10 % (0-9) Eosinophils (%) (Auto) 0 % (0-3) Basophils (%) (Auto) 0 % (0-3) Neutrophils # (Auto) 6.2 x10^3/uL (1.8-7.7) Lymphocytes # (Auto) 0.6 x10^3/uL (1.0-4.8) Monocytes # (Auto) 0.8 x10^3/uL (0.0-1.1) Eosinophils # (Auto) 0.0 x10^3/uL (0.0-0.7) Basophils # (Auto) 0.0 x10^3/uL (0.0-0.2) Microbiology 08/10/19 Anaerobic/Aerobic Culture - Preliminary, Resulted 08/10/19 Anaerobic Culture Result 1 (BENNY) - Preliminary, Resulted 08/10/19 Aerobic Culture - Final, Resulted 08/10/19 Aerobic Culture Result 1 (BENNY) - Final, Resulted 08/10/19 Gram Stain - Final, Resulted 08/10/19 Gram Stain Result 1 (BENNY) - Final, Resulted 08/10/19 Gram Stain Result 2 (BENNY) - Final, Resulted Medications Current Medications Amlodipine Besylate (Norvasc) 10 mg DAILY PO Last administered on 08/08/19 08:28; Start 08/07/19 at 09:00; Stop 08/08/19 at 11:59; Status DC Aspirin (Children'S Aspirin) 81 mg DAILY PO Last administered on 08/13/19 09:01; Start 08/07/19 at 09:00 Latanoprost (Xalatan) 1 drop QHS OU Last administered on 08/12/19 20:43; Start 08/07/19 at 21:00 Brimonidine Tartrate (Alphagan) 1 drop BID OS Last administered on 08/13/19 09:01; Start 08/07/19 at 09:00 Calcium/Vitamin D (Oscal D 500mg/ 200uts) 1 tab DAILYWBKFT PO Last administered on 08/13/19 09:01; Start 08/07/19 at 08:00 Atorvastatin Calcium (Lipitor) 40 mg QHS PO Last administered on 08/12/19 20:43; Start 08/07/19 at 21:00 Levofloxacin/ Dextrose 100 ml @ 100 mls/hr QHS IV Last administered on 08/08/19 20:55; Start 08/07/19 at 01:00; Stop 08/09/19 at 17:18; Status DC Acetaminophen/ Hydrocodone Bitart (Lortab 5/325) 1 tab PRN Q4HRS PRN PO MODERATE PAIN 4-6; Start 08/07/19 at 00:30 Acetaminophen (Tylenol) 650 mg PRN Q6HRS PRN PO MILD PAIN / TEMP Last administered on 08/07/19at 13:11; Start 08/07/19 at 00:30 Methylprednisolone Sodium Succinate (SOLU-Medrol 40MG VIAL) 60 mg Q8HRS IV Last administered on 08/07/19at 05:53; Start 08/07/19 at 06:00; Stop 08/07/19 at 12:42; Status DC Albuterol/ Ipratropium (Duoneb) 3 ml RTQID NEB Last administered on 08/13/19at 11:30; Start 08/07/19 at 08:00 Albuterol Sulfate (Ventolin Neb Soln) 2.5 mg PRN Q4HRS PRN NEB SHORTNESS OF BREATH; Start 08/07/19 at 00:30 Furosemide (Lasix) 40 mg DAILY IVP Last administered on 08/07/19at 08:34; Start 08/07/19 at 09:00; Stop 08/07/19 at 09:21; Status DC Influenza Virus Vaccine Quadrival (Afluria Quad 2019-20 (3yr Up) Syringe) 0.5 ml ONCE ONCE VAX IM ; Start 08/07/19 at 02:00; Stop 08/07/19 at 02:01; Status UNV Atorvastatin Calcium (Lipitor) 40 mg 1X ONCE PO Last administered on 08/07/19at 02:01; Start 08/07/19 at 02:00; Stop 08/07/19 at 02:01; Status DC Nicotine (Nicoderm Cq 14mg) 1 patch DAILY TD Last administered on 08/13/19at 09:01; Start 08/07/19 at 07:00 Pantoprazole Sodium (Protonix) 40 mg DAILYAC PO Last administered on 08/13/19at 09:01; Start 08/07/19 at 09:30 Lactobacillus Rhamnosus (Culturelle) 1 cap BID PO Last administered on 08/13/19at 09:01; Start 08/07/19 at 10:00 Furosemide (Lasix) 40 mg BID94 IVP Last administered on 08/08/19at 08:28; Start 08/07/19 at 16:00; Stop 08/08/19 at 11:56; Status DC Methylprednisolone Sodium Succinate (SOLU-Medrol 40MG VIAL) 30 mg Q8HRS IV Last administered on 08/10/19 06:24; Start 08/07/19 at 14:00; Stop 08/10/19 at 10:18; Status DC Magnesium Sulfate 50 ml @ 25 mls/hr 1X ONCE IV Last administered on 08/08/19 12:09; Start 08/08/19 at 11:00; Stop 08/08/19 at 12:59; Status DC Furosemide (Lasix) 40 mg DAILY IVP Last administered on 08/13/19 13:33; Start 08/08/19 at 12:00 Diltiazem HCl (Cardizem 24hr Cd) 180 mg DAILY PO Last administered on 08/13/19 13:33; Start 08/08/19 at 12:00 Enoxaparin Sodium (Lovenox 40mg Syringe) 40 mg Q24H SQ Last administered on 08/08/19 16:20; Start 08/08/19 at 17:00; Stop 08/09/19 at 09:30; Status DC Enoxaparin Sodium (Lovenox 40mg Syringe) 40 mg Q24H SQ Last administered on 08/12/19at 16:48; Start 08/10/19 at 17:00 Methylprednisolone Sodium Succinate (SOLU-Medrol 40MG VIAL) 40 mg DAILY IV Last administered on 08/13/19 09:01; Start 08/10/19 at 10:30 Multivitamins (Thera M Plus) 1 tab DAILY PO Last administered on 08/13/19 09:01; Start 08/10/19 at 14:30 Ascorbic Acid (Vitamin C) 500 mg DAILY PO Last administered on 08/13/19 09:01; Start 08/10/19 at 14:30 Ceftriaxone Sodium (Rocephin) 1 gm Q24H IVP ; Start 08/13/19 at 12:00; Status UNV Levofloxacin (Levaquin) 500 mg 1X ONCE PO Last administered on 08/13/19 13:33; Start 08/13/19 at 11:30; Stop 08/13/19 at 11:31; Status DC Levofloxacin (Levaquin) 500 mg DAILY06 PO ; Start 08/14/19 at 06:00 Active Scripts Active Reported Protonix (Pantoprazole Sodium) 20 Mg Tablet.dr 20 Mg PO DAILY Lumigan (Bimatoprost) 2.5 Ml Drops 1 Drop EACHEYE QHS Aspirin 81 Mg Tab.chew 81 Mg PO DAILY Simvastatin 80 Mg Tablet 80 Mg PO HS Citracal + D Er Tablet (Calcium Carb & Cit/Vitamin D3) 1 Each Tablet.er 1 Each PO DAILY Alphagan P (Brimonidine Tartrate) 5 Ml Drops 1 Drop OS BID Evista (Raloxifene Hcl) 60 Mg Tablet 60 Mg PO DAILY Amlodipine Besylate 10 Mg Tablet 10 Mg PO DAILY Vitals/I & O Vital Sign - Last 24 Hours 08/12/19 08/12/19 08/12/19 08/12/19 15:28 19:05 19:35 20:10 Temp 98.1 98.1 Pulse 77 Resp 20 B/P (MAP) 98/64 (75) Pulse Ox 98 96 95 O2 Delivery Nasal Cannula Nasal Cannula Nasal Cannula Nasal Cannula O2 Flow Rate 5.0 4.0 3.0 3.0 08/12/19 08/13/19 08/13/19 08/13/19 22:35 02:50 07:00 07:57 Temp 97.6 98.3 98.0 97.6 98.3 98.0 Pulse 80 83 81 Resp 22 20 20 B/P (MAP) 111/63 (79) 132/73 (92) 84/58 (67) Pulse Ox 97 96 94 98 O2 Delivery Nasal Cannula Nasal Cannula Nasal Cannula Nasal Cannula O2 Flow Rate 3.0 3.0 4.0 3.0 08/13/19 08/13/19 08/13/19 08/13/19 08:00 11:00 11:30 13:33 Temp 98.0 98.0 Pulse 85 97 Resp 20 B/P (MAP) 121/69 (86) 121/69 Pulse Ox 98 96 O2 Delivery Nasal Cannula Nasal Cannula Nasal Cannula O2 Flow Rate 3.0 4.0 3.0 Intake and Output 08/12/19 08/12/19 08/13/19 15:00 23:00 07:00 Intake Total 240 ml 500 ml 460 ml Output Total 1700 ml 500 ml Balance 240 ml -1200 ml -40 ml Nutrition Consultation Dietary Evaluation: Recommendations by RD: Protein supplementation Comments: Continue w/cardiac diet as ordered Continue w/Ensure BID (chocolate() REC: MVI q day, Vit C 500 mg q day Expected Outcomes/Goals: PO intake to meet >75% est needs - met, goal ongoing Malnutrition Findings: Body Fat Depletion (Non Severe: Mild Depletion Weight Status: Appropriate FLORENCE SHERWOOD MD Aug 13, 2019 15:31
[2019-08-13] MEDS ORDERED: fentaNYL PF VIAL 100 MCG/2 ML VIAL ONE (16:55)
[2019-08-13] MEDS: FUROSEMIDE 40 MG/4 ML VIAL. IVP ONE ×2 (16:59→22:12)
[2019-08-13] MEDS: ENOXAPARIN 40 MG/0.4 ML SYRINGE. SQ SCH (16:59)
[2019-08-13] MEDS ORDERED: fentaNYL PF VIAL 100 MCG/2 ML VIAL IV ONE (17:00)
--- NOTE | 2019-08-13 17:07 | PATHOLOGY ---
Note [facility] Accession Number: [id number] TESTS RESULT FLAG UNITS REF RANGE LAB Clinician Provided Cytology Information No. of containers..01 Other (Miscellaneous) Source: RT PLEURAL FLUID DIAGNOSIS: RT PLEURAL FLUID NEGATIVE FOR MALIGNANT CELLS. REACTIVE MESOTHELIAL CELLS, LYMPHOCYTES, AND FEW NEUTROPHILS PRESENT. THIS INTERPRETATION INCLUDES EVALUATION OF A CELL BLOCK. Signed out by: 02 Roc Sharma MD, Pathologist NPI- [id number] Performed by: Shila Owens, Driver/Refuse Collector ([facility]) Gross description: 38 ML, YELLOW, CLEAR /LCS 11/20/1840 0000 Local FLAG LEGEND: L-Low Normal,H-High Normal,LL-Alert Low,HH-Alert High <-Panic Low,>-Panic High,A-Abnormal,AA-Critical Abnormal Performed at: [facility] [address] [place] [address] Roman Guardado MD, [address] [facility] [address] [place] [address] Roc Sharma MD, Specimen Comment: A courtesy copy of this report has been sent to Specimen Comment: [phone], , . Specimen Comment: Report sent to ,DR LOWERY / DR CARTER Specimen Comment: A duplicate report has been generated due to demographic updates. Performed at: [address] [facility] [id number], [place], [place] [id number] MD Roman Guardado MD Phone: [phone]
[2019-08-13 20:15] VITALS: BP 105/64
[2019-08-13] MEDS: LATANOPROST 0.005% OPHTH SOLUTION 2.5ML BOTTLE. OU SCH (22:11)
[2019-08-13] MEDS: ATORVASTATIN CALCIUM 40 MG TABLET. PO SCH (22:11)
[2019-08-13 23:35] VITALS: BP 100/55
[2019-08-14 03:45] VITALS: BP 95/65
[2019-08-14 04:49] LABS: BASO % 0 % (0-3); EOS % 0 % (0-3); HEMATOCRIT 32.8 % (36.0-47.0); HEMOGLOBIN 10.7 g/dL (12.0-15.5); LYMPH # 0.6 x10^3/uL (1.0-4.8); LYMPH % 7 % (24-48); MEAN CORPUSCULAR HEMOGLOBIN 30 pg (25-35); MEAN CORPUSCULAR HGB CONC 33 g/dL (31-37); MEAN CORPUSCULAR VOLUME 93 fL (79-100); MONO # 0.8 x10^3/uL (0.0-1.1); MONO % 10 % (0-9); NEUT # 6.4 x10^3/uL (1.8-7.7); NEUT % 83 % (31-73); PLATELET COUNT 145 x10^3/uL (140-400); RED BLOOD COUNT 3.54 x10^6/uL (3.50-5.40); WHITE BLOOD COUNT 7.7 x10^3/uL (4.0-11.0)
[2019-08-14 05:28] LABS: ALBUMIN 2.2 g/dL (3.4-5.0); ALBUMIN/GLOBULIN RATIO 0.8 (1.0-1.7); CALCIUM 8.8 mg/dL (8.5-10.1); GFR 53.9; POTASSIUM 3.8 mmol/L (3.5-5.1); TOTAL BILIRUBIN 0.3 mg/dL (0.2-1.0)
[2019-08-14 07:00] VITALS: BP 122/64
[2019-08-14] MEDS: IPRATRPIUM/ALBUTEROL 0.5/2.5MG 3 ML NEBU. NEB SCH ×4 (08:04→20:14)
[2019-08-14] MEDS: CALCIUM CARB/VIT D3 500/200 TABLET. PO SCH (09:24)
[2019-08-14] MEDS: LACTOBACILLUS RHAMNOSUS GG 1 CAPSULE. PO SCH ×2 (09:25→22:01)
[2019-08-14] MEDS: BRIMONIDINE 0.2% OPHTH SOLUTION 5ML BOTTLE. OS SCH ×2 (09:25→17:53)
[2019-08-14] MEDS: ASPIRIN CHEWABLE 81 MG TABLET. PO SCH (09:25)
[2019-08-14] MEDS: PANTOPRAZOLE 40 MG TABLET.DR. PO SCH (09:25)
[2019-08-14] MEDS: MULTIVITAMIN with MINERAL TABLET. PO SCH (09:25)
[2019-08-14] MEDS: ASCORBIC ACID 500 MG TABLET PO SCH (09:25)
[2019-08-14] MEDS: methylPREDNISolone SOD SUCC PF 40 MG/ML VIAL. IV SCH (09:26)
[2019-08-14] MEDS: FUROSEMIDE 40 MG/4 ML VIAL. IVP SCH (09:26)
[2019-08-14] MEDS: NICOTINE 14MG PATCH. TD SCH (09:26)
--- NOTE | 2019-08-14 10:16 | SNU/HH DC ---
DISCHARGE ORDERS DISCHARGE INFORMATION: FINAL DIAGNOSIS Problems Medical Problems: (1) Acute on chronic diastolic (congestive) heart failure Status: Acute (2) CAD (coronary artery disease) Status: Chronic (3) COPD (chronic obstructive pulmonary disease) Status: Chronic (4) HLD (hyperlipidemia) Status: Chronic (5) HTN (hypertension) Status: Chronic (6) PAD (peripheral artery disease) Status: Chronic (7) Respiratory failure Status: Acute CONDITION ON DISCHARGE: Stable CODE STATUS: Code Status: Full [facility]: SNF STAY <30 DAYS: Yes HOSPICE: HOSPICE: No HOSPICE EVAL & TREAT: No LTAC: ADMIT TO LTAC: No POST DISCHARGE ORDERS: ACTIVITY ORDERS: No restrictions, Resume previous activity, Activity as tolerated WEIGHT BEARING STATUS: No restrictions, Full weight bearing, As tolerated BATHING ORDERS: Shower-keep dressing dry, No Tub Bath until see DIET AFTER DISCHARGE: Cardiac WOUND/INCISION CARE: Keep wound/cast CDI, Change dressing CHECKS AFTER DISCHARGE: CHECKS AFTER DISCHARGE: Check blood press - daily, Check your Temp as needed TREATMENT/EQUIPMENT ORDERS: Physical Therapy For: Evalulation/Treatment Occupational Therapy For: Evaluation/Treatment DISCHARGE MEDICATIONS: Home Meds Reported Medications Pantoprazole Sodium (PROTONIX) 20 Mg Tablet.dr, 20 MG PO DAILY for gerd 08/07/19 Bimatoprost (LUMIGAN) 2.5 Ml Drops, 1 DROP EACHEYE QHS for Glaucoma, #2.5 ML 3 Refills 07/02/19 Aspirin (ASPIRIN) 81 Mg Tab.chew, 81 MG PO DAILY for Antiplatlet, TAB.CHEW 06/27/19 Simvastatin (SIMVASTATIN) 80 Mg Tablet, 80 MG PO HS for FOR CHOLESTEROL, #30 TAB 0 Refills 04/14/17 Calcium Carb & Cit/Vitamin D3 (CITRACAL + D ER TABLET) 1 Each Tablet.er, 1 EACH PO DAILY for Suplement, TAB.SR 04/14/17 Brimonidine Tartrate (ALPHAGAN P) 5 Ml Drops, 1 DROP OS BID for Gaucoma, #15 ML 3 Refills 04/14/17 Raloxifene Hcl (EVISTA) 60 Mg Tablet, 60 MG PO DAILY, TAB 04/14/17 Amlodipine Besylate (AMLODIPINE BESYLATE) 10 Mg Tablet, 10 MG PO DAILY for HTN, TAB 04/14/17 CASTLE,NIAL K III DO Aug 14, 2019 10:16
--- NOTE | 2019-08-14 10:56 | PDOC ---
PULMONARY PROGRESS NOTES Subjective Pt. is up to chair this am. Currently on 5 liters N/C. Reports improvement in breathing S/P thoracentesis Left side on 07/30/19 Vitals Vital Signs Date Time Temp Pulse Resp B/P (MAP) Pulse Ox O2 Delivery O2 Flow Rate FiO2 08/14/19 09:26 78 122/64 08/14/19 08:05 99 Nasal Cannula 3.5 08/14/19 07:00 97.8 18 97.8 ROS: No Nausea, No Chest Pain, No Increase Cough General: Alert, Oriented X4, No acute distress Lungs: Other (decreased breath sounds) Cardiovascular: S1, S2 Abdomen: Soft, Non-tender Neuro Exam: Alert Extremities: Other (trace BLE edema ) Skin: Warm, Dry Labs Laboratory Tests Test 08/13/19 06:50 08/14/19 04:00 White Blood Count 7.5 x10^3/uL (4.0-11.0) 7.7 x10^3/uL (4.0-11.0) Red Blood Count 3.80 x10^6/uL (3.50-5.40) 3.54 x10^6/uL (3.50-5.40) Hemoglobin 11.4 g/dL (12.0-15.5) 10.7 g/dL (12.0-15.5) Hematocrit 35.3 % (36.0-47.0) 32.8 % (36.0-47.0) Mean Corpuscular Volume 93 fL (79-100) 93 fL (79-100) Mean Corpuscular Hemoglobin 30 pg (25-35) 30 pg (25-35) Mean Corpuscular Hemoglobin Concent 32 g/dL (31-37) 33 g/dL (31-37) Red Cell Distribution Width 16.5 % (11.5-14.5) 16.0 % (11.5-14.5) Platelet Count 155 x10^3/uL (140-400) 145 x10^3/uL (140-400) Neutrophils (%) (Auto) 82 % (31-73) 83 % (31-73) Lymphocytes (%) (Auto) 7 % (24-48) 7 % (24-48) Monocytes (%) (Auto) 10 % (0-9) 10 % (0-9) Eosinophils (%) (Auto) 0 % (0-3) 0 % (0-3) Basophils (%) (Auto) 0 % (0-3) 0 % (0-3) Neutrophils # (Auto) 6.2 x10^3/uL (1.8-7.7) 6.4 x10^3/uL (1.8-7.7) Lymphocytes # (Auto) 0.6 x10^3/uL (1.0-4.8) 0.6 x10^3/uL (1.0-4.8) Monocytes # (Auto) 0.8 x10^3/uL (0.0-1.1) 0.8 x10^3/uL (0.0-1.1) Eosinophils # (Auto) 0.0 x10^3/uL (0.0-0.7) 0.0 x10^3/uL (0.0-0.7) Basophils # (Auto) 0.0 x10^3/uL (0.0-0.2) 0.0 x10^3/uL (0.0-0.2) Sodium Level 140 mmol/L (136-145) Potassium Level 3.8 mmol/L (3.5-5.1) Chloride Level 97 mmol/L (98-107) Carbon Dioxide Level 42 mmol/L (21-32) Anion Gap 1 (6-14) Blood Urea Nitrogen 38 mg/dL (7-20) Creatinine 1.0 mg/dL (0.6-1.0) Estimated GFR (Cockcroft-Gault) 53.9 BUN/Creatinine Ratio 38 (6-20) Glucose Level 128 mg/dL (70-99) Calcium Level 8.8 mg/dL (8.5-10.1) Total Bilirubin 0.3 mg/dL (0.2-1.0) Aspartate Amino Transf (AST/SGOT) 22 U/L (15-37) Alanine Aminotransferase (ALT/SGPT) 24 U/L (14-59) Alkaline Phosphatase 93 U/L (46-116) Total Protein 5.0 g/dL (6.4-8.2) Albumin 2.2 g/dL (3.4-5.0) Albumin/Globulin Ratio 0.8 (1.0-1.7) Laboratory Tests Test 08/14/19 04:00 White Blood Count 7.7 x10^3/uL (4.0-11.0) Red Blood Count 3.54 x10^6/uL (3.50-5.40) Hemoglobin 10.7 g/dL (12.0-15.5) Hematocrit 32.8 % (36.0-47.0) Mean Corpuscular Volume 93 fL (79-100) Mean Corpuscular Hemoglobin 30 pg (25-35) Mean Corpuscular Hemoglobin Concent 33 g/dL (31-37) Red Cell Distribution Width 16.0 % (11.5-14.5) Platelet Count 145 x10^3/uL (140-400) Neutrophils (%) (Auto) 83 % (31-73) Lymphocytes (%) (Auto) 7 % (24-48) Monocytes (%) (Auto) 10 % (0-9) Eosinophils (%) (Auto) 0 % (0-3) Basophils (%) (Auto) 0 % (0-3) Neutrophils # (Auto) 6.4 x10^3/uL (1.8-7.7) Lymphocytes # (Auto) 0.6 x10^3/uL (1.0-4.8) Monocytes # (Auto) 0.8 x10^3/uL (0.0-1.1) Eosinophils # (Auto) 0.0 x10^3/uL (0.0-0.7) Basophils # (Auto) 0.0 x10^3/uL (0.0-0.2) Sodium Level 140 mmol/L (136-145) Potassium Level 3.8 mmol/L (3.5-5.1) Chloride Level 97 mmol/L (98-107) Carbon Dioxide Level 42 mmol/L (21-32) Anion Gap 1 (6-14) Blood Urea Nitrogen 38 mg/dL (7-20) Creatinine 1.0 mg/dL (0.6-1.0) Estimated GFR (Cockcroft-Gault) 53.9 BUN/Creatinine Ratio 38 (6-20) Glucose Level 128 mg/dL (70-99) Calcium Level 8.8 mg/dL (8.5-10.1) Total Bilirubin 0.3 mg/dL (0.2-1.0) Aspartate Amino Transf (AST/SGOT) 22 U/L (15-37) Alanine Aminotransferase (ALT/SGPT) 24 U/L (14-59) Alkaline Phosphatase 93 U/L (46-116) Total Protein 5.0 g/dL (6.4-8.2) Albumin 2.2 g/dL (3.4-5.0) Albumin/Globulin Ratio 0.8 (1.0-1.7) Medications Active Scripts Medications Dose Route/Sig Max Daily Dose Days Date Category Protonix (Pantoprazole Sodium) 20 Mg Tablet.dr 20 Mg PO DAILY 08/07/19 Reported Lumigan (Bimatoprost) 2.5 Ml Drops 1 Drop EACHEYE QHS 07/02/19 Reported Aspirin 81 Mg Tab.chew 81 Mg PO DAILY 06/27/19 Reported Simvastatin 80 Mg Tablet 80 Mg PO HS 04/14/17 Reported Citracal + D Er Tablet (Calcium Carb & Cit/Vitamin D3) 1 Each Tablet.er 1 Each PO DAILY 04/14/17 Reported Alphagan P (Brimonidine Tartrate) 5 Ml Drops 1 Drop OS BID 04/14/17 Reported Evista (Raloxifene Hcl) 60 Mg Tablet 60 Mg PO DAILY 04/14/17 Reported Amlodipine Besylate 10 Mg Tablet 10 Mg PO DAILY 04/14/17 Reported Comments CXR 08/11 Left effusion greatly diminished. right effusion persists. CT chest 08/12 reviewed Impression . 1. Acute hypoxic respiratory failure secondary to acute on chronic diastolic heart failure, 2. Abnormal chest x-ray with bilateral pleural effusion and interstitial markings consistent with congestive heart failure, ct chest 08/12 suggest ongoing CHF/ moderate effusions 3. ECHO in 07/09: There is mild to moderate concentric left ventricular hypertrophy. The Ejection Fraction is 50-55%. There is normal LV segmental wall motion. Grade I-abnormal relaxation pattern. 4. Chronic obstructive pulmonary disease could be severe. Plan . 1. Wean oxygen as tolerated keeping saturation above 90%. 2. continued diuresis per cardiology 3. S/P left thoracentesis , serosanguineous drainage on 08/09/19 , LDH consistent with transudate, cytology negative. , right tap is also c/w transudate 4. PRN bronchodilators. 5. Taper steroids, 6. currently off ABX 7. Would keep in negative fluid balance. ct chest 08/12 suggest ongoing CHF/ moderate effusions. I do not think thoracentesis every other day would help anything. treat medically 8. discussed importance of complete smoking cessation 9. PFTs after discharge 10. ok with dc home with HH Discussed with WESTON PEREZ MD Aug 14, 2019 10:56
[2019-08-14 11:00] VITALS: BP 102/60
--- NOTE | 2019-08-14 11:09 | PDOC ---
[facility] [facility] PROGRESS NOTE Chief Complaint Chief Complaint Acute hypoxic respiratory failure Acute on chronic diastolic heart failure. Bilateral pleural effusion and interstitial markings consistent with congestive heart failure. COPD - possible severe CKD Tobacco use disorder History of Present Illness History of Present Illness 08/14/19 Pt was examined at bedside Continues to be frustrated and angry with the staff Wants to go home 08/13/19 Very frustrating meeting for me today, patient was abusive verbally to PT and OT and nursing. She was upset about not improvement, and was upset about how long things are taking to "get done" around here. She has a new laceration on her leg from the line of the george catheter, and she still refuses to have her george removed until she talks to Dr. Mckeon. I discussed her weakness, and her hypoxia and her lack of improvement, she refused a bath or shower yesterday and she is malodorous; she has refused PT and is angry and frustrated with staff, and wants to go home. I offered Hospice, and she was angry and proceeded to tell me what Hospice was about, and talk to me like I really have no medical training whatsoever. I have recommended hospice and palliative care. Vitals/I&O Vitals/I&O: Vital Signs Date Time Temp Pulse Resp B/P (MAP) Pulse Ox O2 Delivery O2 Flow Rate FiO2 08/14/19 09:26 78 122/64 08/14/19 08:05 99 Nasal Cannula 3.5 08/14/19 07:00 97.8 18 97.8 I & O 08/13/19 08/13/19 08/14/19 15:00 23:00 07:00 Intake Total 480 ml Output Total 1400 ml 1300 ml Balance -1400 ml -820 ml Physical Exam Physical Exam: VITALS: Within normal limits and are stable. GENERAL: No apparent distress. Alert and oriented. HEENT: Head is normocephalic, atraumatic, pupils were equally round and reactive to light and accommodation. NECK: Supple, no JVD, no thyromegaly was noted. LUNGS: Clear to auscultation in all lung armstrong without rhonchi or wheezing. She has diffuse crackles. HEART: RRR, S1, S2 present. Peripheral pulses intact. She has systolic ejection murmur, intermittently tachycardic. ABDOMEN: Soft, nontender. Positive bowel sounds no organomegaly, normal bowel sounds. EXTREMITIES: Without any cyanosis, clubbing, or edema. Pedal pulses intact, Homans sign is negative. NEUROLOGIC: Normal speech, normal tone. A & O x3, moves all extremities, no obvious focal deficits. She is extremely weak. PSYCHIATRIC: She is depressed. SKIN: No ulcerations or rashes, good skin turgor, no jaundice. VASCULAR: Good capillary refill, neurovascular bundle appears to be intact. General: Alert, Oriented X3, Cooperative, No acute distress Heart: Regular rate (SR with WAP), No murmurs, Other (4/6 systolic murmur to MARTELL border; diastolic murmur to apical region 5/6) Lungs: Other (decreased breath sounds) Abdomen: Soft, No tenderness Extremities: No cyanosis, Other (2-3+ bilateral LE pitting edema) Skin: No breakdown, No significant lesion Labs Labs: Laboratory Tests Test 08/14/19 04:00 White Blood Count 7.7 x10^3/uL (4.0-11.0) Red Blood Count 3.54 x10^6/uL (3.50-5.40) Hemoglobin 10.7 g/dL (12.0-15.5) Hematocrit 32.8 % (36.0-47.0) Mean Corpuscular Volume 93 fL (79-100) Mean Corpuscular Hemoglobin 30 pg (25-35) Mean Corpuscular Hemoglobin Concent 33 g/dL (31-37) Red Cell Distribution Width 16.0 % (11.5-14.5) Platelet Count 145 x10^3/uL (140-400) Neutrophils (%) (Auto) 83 % (31-73) Lymphocytes (%) (Auto) 7 % (24-48) Monocytes (%) (Auto) 10 % (0-9) Eosinophils (%) (Auto) 0 % (0-3) Basophils (%) (Auto) 0 % (0-3) Neutrophils # (Auto) 6.4 x10^3/uL (1.8-7.7) Lymphocytes # (Auto) 0.6 x10^3/uL (1.0-4.8) Monocytes # (Auto) 0.8 x10^3/uL (0.0-1.1) Eosinophils # (Auto) 0.0 x10^3/uL (0.0-0.7) Basophils # (Auto) 0.0 x10^3/uL (0.0-0.2) Sodium Level 140 mmol/L (136-145) Potassium Level 3.8 mmol/L (3.5-5.1) Chloride Level 97 mmol/L (98-107) Carbon Dioxide Level 42 mmol/L (21-32) Anion Gap 1 (6-14) Blood Urea Nitrogen 38 mg/dL (7-20) Creatinine 1.0 mg/dL (0.6-1.0) Estimated GFR (Cockcroft-Gault) 53.9 BUN/Creatinine Ratio 38 (6-20) Glucose Level 128 mg/dL (70-99) Calcium Level 8.8 mg/dL (8.5-10.1) Total Bilirubin 0.3 mg/dL (0.2-1.0) Aspartate Amino Transf (AST/SGOT) 22 U/L (15-37) Alanine Aminotransferase (ALT/SGPT) 24 U/L (14-59) Alkaline Phosphatase 93 U/L (46-116) Total Protein 5.0 g/dL (6.4-8.2) Albumin 2.2 g/dL (3.4-5.0) Albumin/Globulin Ratio 0.8 (1.0-1.7) Review of Systems Review of Systems: No nausea, no vomiting No headache, no changes in vision Assessment and Plan Assessmemt and Plan Problems Medical Problems: (1) Acute on chronic diastolic (congestive) heart failure Status: Acute (2) CAD (coronary artery disease) Status: Chronic (3) COPD (chronic obstructive pulmonary disease) Status: Chronic (4) HLD (hyperlipidemia) Status: Chronic (5) HTN (hypertension) Status: Chronic (6) PAD (peripheral artery disease) Status: Chronic (7) Respiratory failure Status: Acute Assessment Acute on chronic diastolic HF HTN Tobacco abuse CAD COPD PAD Plan Cardiac monitoring PT/OT Labs Continue Lasix Discharge in progress Comment Review of Relevant I have reviewed the following items emory (where applicable) has been applied. Medications: Current Medications Medications (Trade) Dose Ordered Sig/Melissa Route PRN Reason Start Time Stop Time Status Last Admin Dose Admin Levofloxacin (Levaquin) 500 mg 1X ONCE PO 08/13/19 11:30 08/13/19 11:31 DC 9/23/19 13:33 Levofloxacin (Levaquin) 500 mg DAILY06 PO 08/14/19 06:00 08/14/19 05:36 Furosemide (Lasix) 40 mg 1X ONCE IVP 08/13/19 16:45 08/13/19 16:46 DC 08/13/19 22:12 Fentanyl Citrate (Fentanyl 2ml Vial) 50 mcg 1X ONCE IV 08/13/19 17:00 08/13/19 17:01 DC 08/13/19 16:59 LAURA ARCE III DO Aug 14, 2019 11:09
[2019-08-14] MEDS ORDERED: FURO40TA4 PO (12:08)
[2019-08-14] MEDS ORDERED: PRED20TA PO (12:08)
[2019-08-14] MEDS ORDERED: DILT180C29 PO (12:09)
[2019-08-14 15:00] VITALS: BP 98/58
--- NOTE | 2019-08-14 16:10 | PDOC ---
ELLY MAJANO TRANSPORTATION SUPERINTENDENT 08/14/19 1610: CARDIO Progress Notes Date and Time Date of Service 08/14/2019 Time of Evaluation 1430 Subjective Subjective: No Chest Pain, No Palpitations, Other (still has some SOA) Vitals Vitals Vital Signs Date Time Temp Pulse Resp B/P (MAP) Pulse Ox O2 Delivery O2 Flow Rate FiO2 08/14/19 15:42 95 Nasal Cannula 1.0 08/14/19 15:00 90 20 98/58 (71) 08/14/19 11:00 97.6 97.6 Weight Weight [ ] Input and Output Intake and Output Intake and Output 08/14/19 07:00 Intake Total 480 ml Output Total 2700 ml Balance -2220 ml Intake Oral 480 ml Output Urine Total 2700 ml Laboratory Labs Laboratory Tests Test 08/14/19 04:00 White Blood Count 7.7 x10^3/uL (4.0-11.0) Red Blood Count 3.54 x10^6/uL (3.50-5.40) Hemoglobin 10.7 g/dL (12.0-15.5) Hematocrit 32.8 % (36.0-47.0) Mean Corpuscular Volume 93 fL (79-100) Mean Corpuscular Hemoglobin 30 pg (25-35) Mean Corpuscular Hemoglobin Concent 33 g/dL (31-37) Red Cell Distribution Width 16.0 % (11.5-14.5) Platelet Count 145 x10^3/uL (140-400) Neutrophils (%) (Auto) 83 % (31-73) Lymphocytes (%) (Auto) 7 % (24-48) Monocytes (%) (Auto) 10 % (0-9) Eosinophils (%) (Auto) 0 % (0-3) Basophils (%) (Auto) 0 % (0-3) Neutrophils # (Auto) 6.4 x10^3/uL (1.8-7.7) Lymphocytes # (Auto) 0.6 x10^3/uL (1.0-4.8) Monocytes # (Auto) 0.8 x10^3/uL (0.0-1.1) Eosinophils # (Auto) 0.0 x10^3/uL (0.0-0.7) Basophils # (Auto) 0.0 x10^3/uL (0.0-0.2) Sodium Level 140 mmol/L (136-145) Potassium Level 3.8 mmol/L (3.5-5.1) Chloride Level 97 mmol/L (98-107) Carbon Dioxide Level 42 mmol/L (21-32) Anion Gap 1 (6-14) Blood Urea Nitrogen 38 mg/dL (7-20) Creatinine 1.0 mg/dL (0.6-1.0) Estimated GFR (Cockcroft-Gault) 53.9 BUN/Creatinine Ratio 38 (6-20) Glucose Level 128 mg/dL (70-99) Calcium Level 8.8 mg/dL (8.5-10.1) Total Bilirubin 0.3 mg/dL (0.2-1.0) Aspartate Amino Transf (AST/SGOT) 22 U/L (15-37) Alanine Aminotransferase (ALT/SGPT) 24 U/L (14-59) Alkaline Phosphatase 93 U/L (46-116) Total Protein 5.0 g/dL (6.4-8.2) Albumin 2.2 g/dL (3.4-5.0) Albumin/Globulin Ratio 0.8 (1.0-1.7) Microbiology Micro Microbiology 08/10/19 Anaerobic/Aerobic Culture - Preliminary, Resulted 08/10/19 Anaerobic Culture Result 1 (BENNY) - Preliminary, Resulted 08/10/19 Aerobic Culture - Final, Resulted 08/10/19 Aerobic Culture Result 1 (BENNY) - Final, Resulted 08/10/19 Gram Stain - Final, Resulted 08/10/19 Gram Stain Result 1 (BENNY) - Final, Resulted 08/10/19 Gram Stain Result 2 (BENNY) - Final, Resulted Physical Exam HEENT: Neck Supple W Full Motion Chest: Symmetric LUNGS: Other (basilar crackles) Heart: S1S2, RRR (SR) Abdomen: Soft N/T Extremities: No Calf Tenderness, Other (trace bilateral LE edema) Neurology: alert, oriented, follow commands Assessment Assessment 1. Acute on chronic diastolic CHF: multifactorial. LVEF 50-55%. CT chest with ongoing CHF/pleural effusions 2. Acute on chronic respiratory failure, multifactorial 3. CAD: clinically stable 4. PAD: no claudication symptoms 5. Valvular disease: mitral valve and aortic valve calcifications 6. Hypertension; controlled 7. Hyperlipidemia 8. Tobaccoism Recommendations 1. Convert to po lasix bid for few more days then reevaluate 2. Discuss in regards to SNU placement but pt is hesitant. 3. Encouraged compliance with therapy. Continue with current regimen and follow up. 4. Continue current regimen. May transfer to SNU today. SANYA DELONG MD 08/14/19 2230: CARDIO Progress Notes Plan Plan Pt. seen and examined. Agree with above SORT SUPERVISOR note. No acute events overnight. Off oxygen now. She appears to be back to baseline with regards to HF clinically. CXR still with effusions. Continue diuretics with oral dosing now. Supportive care, agree with transition to SNF. ELLY MAJANO APRN Aug 14, 2019 16:10 SANYA DELONG MD Aug 14, 2019 22:30
[2019-08-14] MEDS: POTASSIUM CHLORIDE 20 MEQ TABLET.ER. PO SCH (17:53)
[2019-08-14] MEDS: ENOXAPARIN 40 MG/0.4 ML SYRINGE. SQ SCH (17:54)
[2019-08-14 19:40] VITALS: BP 113/80
--- NOTE | 2019-08-14 20:58 | DS ---
DATE OF DISCHARGE: 08/14/2019 ADMISSION DIAGNOSIS: Congestive heart failure. DISCHARGE DIAGNOSIS: Resolving congestive heart failure. HOSPITAL COURSE: The patient is a pleasant 78-year-old female who presented with CHF. She was admitted. We consulted Cardiology, did serial enzymes, serial EKGs, cardiac monitoring, and IV diuretics. Over the past week or so, she has returned to baseline. I saw her and examined her this morning. Heart tones were normal. Lungs were clear. She wants to go to assisted. We plan to discharge to [facility] if she is accepted. DISPOSITION: Hopefully to [facility] this afternoon if she is accepted. ACTIVITY: As tolerated. DIET: Cardiac. MEDICATIONS: Please see the MRAD. TOTAL TIME: 34 minutes. LAURA ARCE DO DR: KALIA/serafin JOB#: [id number] / [id number]
[2019-08-14] MEDS: ATORVASTATIN CALCIUM 40 MG TABLET. PO SCH (22:01)
[2019-08-14] MEDS: LATANOPROST 0.005% OPHTH SOLUTION 2.5ML BOTTLE. OU SCH (22:02)
[2019-08-14 23:35] VITALS: BP 102/57
[2019-08-15 02:50] VITALS: BP 102/68
[2019-08-15 07:00] VITALS: BP 143/91
[2019-08-15] MEDS: IPRATRPIUM/ALBUTEROL 0.5/2.5MG 3 ML NEBU. NEB SCH ×4 (07:31→20:20)
[2019-08-15] MEDS: predniSONE 10 MG TABLET PO SCH (08:56)
[2019-08-15] MEDS: PANTOPRAZOLE 40 MG TABLET.DR. PO SCH (08:56)
[2019-08-15] MEDS: MULTIVITAMIN with MINERAL TABLET. PO SCH (08:56)
[2019-08-15] MEDS: POTASSIUM CHLORIDE 20 MEQ TABLET.ER. PO SCH (08:57)
[2019-08-15] MEDS: LACTOBACILLUS RHAMNOSUS GG 1 CAPSULE. PO SCH ×2 (08:57→22:10)
[2019-08-15] MEDS: ASCORBIC ACID 500 MG TABLET PO SCH (08:57)
[2019-08-15] MEDS: ASPIRIN CHEWABLE 81 MG TABLET. PO SCH (08:57)
[2019-08-15] MEDS: BRIMONIDINE 0.2% OPHTH SOLUTION 5ML BOTTLE. OS SCH ×2 (08:57→17:32)
[2019-08-15] MEDS: CALCIUM CARB/VIT D3 500/200 TABLET. PO SCH (08:57)
[2019-08-15] MEDS: NICOTINE 14MG PATCH. TD SCH (08:57)
[2019-08-15] MEDS: FUROSEMIDE 40 MG TABLET. PO SCH ×2 (08:57→17:33)
[2019-08-15 11:00] VITALS: BP 109/69
--- NOTE | 2019-08-15 11:00 | PDOC ---
PULMONARY PROGRESS NOTES Subjective no soa Reports improvement in breathing S/P thoracentesis Left side on 07/30/19 Vitals Vital Signs Date Time Temp Pulse Resp B/P (MAP) Pulse Ox O2 Delivery O2 Flow Rate FiO2 08/15/19 08:59 78 143/91 08/15/19 08:00 Room Air 08/15/19 07:32 92 1.5 08/15/19 07:00 98.0 18 98.0 ROS: No Nausea, No Chest Pain, No Increase Cough General: Alert, Oriented X4, No acute distress Lungs: Other (decreased breath sounds) Cardiovascular: S1, S2 Abdomen: Soft, Non-tender Neuro Exam: Alert Extremities: Other (trace BLE edema ) Skin: Warm, Dry Labs Laboratory Tests Test 08/14/19 04:00 White Blood Count 7.7 x10^3/uL (4.0-11.0) Red Blood Count 3.54 x10^6/uL (3.50-5.40) Hemoglobin 10.7 g/dL (12.0-15.5) Hematocrit 32.8 % (36.0-47.0) Mean Corpuscular Volume 93 fL (79-100) Mean Corpuscular Hemoglobin 30 pg (25-35) Mean Corpuscular Hemoglobin Concent 33 g/dL (31-37) Red Cell Distribution Width 16.0 % (11.5-14.5) Platelet Count 145 x10^3/uL (140-400) Neutrophils (%) (Auto) 83 % (31-73) Lymphocytes (%) (Auto) 7 % (24-48) Monocytes (%) (Auto) 10 % (0-9) Eosinophils (%) (Auto) 0 % (0-3) Basophils (%) (Auto) 0 % (0-3) Neutrophils # (Auto) 6.4 x10^3/uL (1.8-7.7) Lymphocytes # (Auto) 0.6 x10^3/uL (1.0-4.8) Monocytes # (Auto) 0.8 x10^3/uL (0.0-1.1) Eosinophils # (Auto) 0.0 x10^3/uL (0.0-0.7) Basophils # (Auto) 0.0 x10^3/uL (0.0-0.2) Sodium Level 140 mmol/L (136-145) Potassium Level 3.8 mmol/L (3.5-5.1) Chloride Level 97 mmol/L (98-107) Carbon Dioxide Level 42 mmol/L (21-32) Anion Gap 1 (6-14) Blood Urea Nitrogen 38 mg/dL (7-20) Creatinine 1.0 mg/dL (0.6-1.0) Estimated GFR (Cockcroft-Gault) 53.9 BUN/Creatinine Ratio 38 (6-20) Glucose Level 128 mg/dL (70-99) Calcium Level 8.8 mg/dL (8.5-10.1) Total Bilirubin 0.3 mg/dL (0.2-1.0) Aspartate Amino Transf (AST/SGOT) 22 U/L (15-37) Alanine Aminotransferase (ALT/SGPT) 24 U/L (14-59) Alkaline Phosphatase 93 U/L (46-116) Total Protein 5.0 g/dL (6.4-8.2) Albumin 2.2 g/dL (3.4-5.0) Albumin/Globulin Ratio 0.8 (1.0-1.7) Medications Active Scripts Medications Dose Route/Sig Max Daily Dose Days Date Category Protonix (Pantoprazole Sodium) 20 Mg Tablet.dr 20 Mg PO DAILY 08/07/19 Reported Lumigan (Bimatoprost) 2.5 Ml Drops 1 Drop EACHEYE QHS 07/02/19 Reported Aspirin 81 Mg Tab.chew 81 Mg PO DAILY 06/27/19 Reported Simvastatin 80 Mg Tablet 80 Mg PO HS 04/14/17 Reported Citracal + D Er Tablet (Calcium Carb & Cit/Vitamin D3) 1 Each Tablet.er 1 Each PO DAILY 04/14/17 Reported Alphagan P (Brimonidine Tartrate) 5 Ml Drops 1 Drop OS BID 04/14/17 Reported Evista (Raloxifene Hcl) 60 Mg Tablet 60 Mg PO DAILY 04/14/17 Reported Amlodipine Besylate 10 Mg Tablet 10 Mg PO DAILY 04/14/17 Reported Comments CXR 08/11 Left effusion greatly diminished. right effusion persists. CT chest 08/12 reviewed Impression . 1. Acute hypoxic respiratory failure secondary to acute on chronic diastolic heart failure, 2. Abnormal chest x-ray with bilateral pleural effusion and interstitial markings consistent with congestive heart failure, ct chest 08/12 suggest ongoing CHF/ moderate effusions 3. ECHO in 07/09: There is mild to moderate concentric left ventricular hypertrophy. The Ejection Fraction is 50-55%. There is normal LV segmental wall motion. Grade I-abnormal relaxation pattern. 4. Chronic obstructive pulmonary disease could be severe. Plan . 1. Wean oxygen as tolerated keeping saturation above 90%. 2. continued diuresis per cardiology 3. S/P left thoracentesis , serosanguineous drainage on 08/09/19 , LDH consistent with transudate, cytology negative. , right tap is also c/w transudate 4. PRN bronchodilators. 5. Taper steroids, 6. currently off ABX 7. Would keep in negative fluid balance. ct chest 08/12 suggest ongoing CHF/ moderate effusions. I do not think thoracentesis every other day would help anything. treat medically 8. discussed importance of complete smoking cessation 9. PFTs after discharge 10. ok with dc to [facility] Discussed with WESTON PEREZ MD Aug 15, 2019 11:00
--- NOTE | 2019-08-15 13:22 | PDOC ---
[facility] [facility] PROGRESS NOTE Chief Complaint Chief Complaint Acute hypoxic respiratory failure Acute on chronic diastolic heart failure. Bilateral pleural effusion and interstitial markings consistent with congestive heart failure. COPD - possible severe CKD Tobacco use disorder History of Present Illness History of Present Illness 08/15/19 Pt was seen and examined Pt was in a pleasant mood today. We discussed her transition of care to [facility]. She is happy with these plans and is ready to finally be discharged. KERMIT RN 08/14/19 Pt was examined at bedside Continues to be frustrated and angry with the staff Wants to go home 08/13/19 Very frustrating meeting for me today, patient was abusive verbally to PT and OT and nursing. She was upset about not improvement, and was upset about how long things are taking to "get done" around here. She has a new laceration on her leg from the line of the george catheter, and she still refuses to have her george removed until she talks to Dr. Mckeon. I discussed her weakness, and her hypoxia and her lack of improvement, she refused a bath or shower yesterday and she is malodorous; she has refused PT and is angry and frustrated with staff, and wants to go home. I offered Hospice, and she was angry and proceeded to tell me what Hospice was about, and talk to me like I really have no medical training whatsoever. I have recommended hospice and palliative care. Vitals/I&O Vitals/I&O: Vital Signs Date Time Temp Pulse Resp B/P (MAP) Pulse Ox O2 Delivery O2 Flow Rate FiO2 08/15/19 11:29 Nasal Cannula 1.5 08/15/19 11:00 98.1 74 18 109/69 (82) 94 98.1 I & O 08/14/19 08/14/19 08/15/19 15:00 23:00 07:00 Intake Total 240 ml 300 ml Output Total 800 ml Balance 240 ml -500 ml Physical Exam Physical Exam: VITALS: Within normal limits and are stable. GENERAL: No apparent distress. Alert and oriented. HEENT: Head is normocephalic, atraumatic, pupils were equally round and reactive to light and accommodation. NECK: Supple, no JVD, no thyromegaly was noted. LUNGS: Clear to auscultation in all lung armstrong without rhonchi or wheezing. She has diffuse crackles. HEART: RRR, S1, S2 present. Peripheral pulses intact. She has systolic ejection murmur, intermittently tachycardic. ABDOMEN: Soft, nontender. Positive bowel sounds no organomegaly, normal bowel sounds. EXTREMITIES: Without any cyanosis, clubbing, or edema. Pedal pulses intact, Homans sign is negative. NEUROLOGIC: Normal speech, normal tone. A & O x3, moves all extremities, no obvious focal deficits. She is extremely weak. PSYCHIATRIC: She is depressed. SKIN: No ulcerations or rashes, good skin turgor, no jaundice. VASCULAR: Good capillary refill, neurovascular bundle appears to be intact. General: Alert, Oriented X3, Cooperative, No acute distress Heart: Regular rate (SR with WAP), No murmurs, Other (4/6 systolic murmur to MARTELL border; diastolic murmur to apical region 5/6) Lungs: Other (decreased breath sounds) Abdomen: Soft, No tenderness Extremities: No cyanosis, Other (2-3+ bilateral LE pitting edema) Skin: No breakdown, No significant lesion Review of Systems Review of Systems: Co weakness Denies pain Assessment and Plan Assessmemt and Plan Problems Medical Problems: (1) Acute on chronic diastolic (congestive) heart failure Status: Acute (2) CAD (coronary artery disease) Status: Chronic (3) COPD (chronic obstructive pulmonary disease) Status: Chronic (4) HLD (hyperlipidemia) Status: Chronic (5) HTN (hypertension) Status: Chronic (6) PAD (peripheral artery disease) Status: Chronic (7) Respiratory failure Status: Acute Assessment Acute on chronic diastolic HF HTN Tobacco abuse CAD COPD PAD Plan Probable discharge to SNU Cardiac monitoring PT/OT Labs Continue home meds DVT prophylaxis Full code Comment Review of Relevant I have reviewed the following items emory (where applicable) has been applied. Medications: Current Medications Medications (Trade) Dose Ordered Sig/Melissa Route PRN Reason Start Time Stop Time Status Last Admin Dose Admin Prednisone (Prednisone) 30 mg DAILY PO 08/15/19 09:00 08/16/19 09:01 08/15/19 08:59 Furosemide (Lasix) 40 mg [id number] PO 08/15/19 09:00 08/15/19 08:59 Potassium Chloride (Klor-Con) 20 meq [id number] PO 08/14/19 16:30 08/15/19 08:59 LAURA ARCE III DO Aug 15, 2019 13:22
[2019-08-15 15:00] VITALS: BP 92/62
[2019-08-15] MEDS: ENOXAPARIN 40 MG/0.4 ML SYRINGE. SQ SCH (17:33)
[2019-08-15 19:00] VITALS: BP 97/62
[2019-08-15] MEDS: ATORVASTATIN CALCIUM 40 MG TABLET. PO SCH (22:10)
[2019-08-15] MEDS: LATANOPROST 0.005% OPHTH SOLUTION 2.5ML BOTTLE. OU SCH (22:36)
[2019-08-15 23:00] VITALS: BP 96/52
[2019-08-16 03:00] VITALS: BP 140/73
[2019-08-16 07:00] VITALS: BP 121/64
[2019-08-16] MEDS: IPRATRPIUM/ALBUTEROL 0.5/2.5MG 3 ML NEBU. NEB SCH ×3 (07:53→15:48)
[2019-08-16] MEDS: CALCIUM CARB/VIT D3 500/200 TABLET. PO SCH (08:27)
[2019-08-16] MEDS: LACTOBACILLUS RHAMNOSUS GG 1 CAPSULE. PO SCH (08:27)
[2019-08-16] MEDS: predniSONE 10 MG TABLET PO SCH (08:27)
[2019-08-16] MEDS: FUROSEMIDE 40 MG TABLET. PO SCH ×2 (08:27→16:44)
[2019-08-16] MEDS: POTASSIUM CHLORIDE 20 MEQ TABLET.ER. PO SCH (08:28)
[2019-08-16] MEDS: ASPIRIN CHEWABLE 81 MG TABLET. PO SCH (08:28)
[2019-08-16] MEDS: ASCORBIC ACID 500 MG TABLET PO SCH (08:28)
[2019-08-16] MEDS: MULTIVITAMIN with MINERAL TABLET. PO SCH (08:28)
[2019-08-16] MEDS: NICOTINE 14MG PATCH. TD SCH (08:29)
[2019-08-16] MEDS: PANTOPRAZOLE 40 MG TABLET.DR. PO SCH (08:29)
[2019-08-16] MEDS: BRIMONIDINE 0.2% OPHTH SOLUTION 5ML BOTTLE. OS SCH (08:29)
--- NOTE | 2019-08-16 09:23 | SNU/HH DC ---
DISCHARGE WITH HOME HEALTH DISCHARGE INFORMATION: Final Diagnosis: Problems Medical Problems: (1) Acute on chronic diastolic (congestive) heart failure Status: Acute (2) CAD (coronary artery disease) Status: Chronic (3) COPD (chronic obstructive pulmonary disease) Status: Chronic (4) HLD (hyperlipidemia) Status: Chronic (5) HTN (hypertension) Status: Chronic (6) PAD (peripheral artery disease) Status: Chronic (7) Respiratory failure Status: Acute Condition on Discharge: Stable CODE STATUS: Code Status: Full HOME HEALTH: Face to Face: I certify this patient is under my care and that I, or a nurse practitioner or physician's child welfare assistant working with me, had a face to face encounter that meets the physician face to face encounter requirements with this patient on []. Medical Complications: DJD RN For Eval/Treatment: Yes Physical Therapy For: Evalulation/Treatment Occupational Therapy For: Evaluation/Treatment Speech Language Pathology For: Evaluation/Treatment Home Health Aide For: Self-care MINE DEPUTY For: Community Resources Pt Meets Homebound Status: Extreme weakness w/ amb. POST DISCHARGE ORDERS: Activity Instructions for Disc: Activity as tolerated Weight Bearing Status after Di: No restrictions, Full weight bearing, As tolerated Bathing Instructions: Shower-keep dressing dry, No Tub Bath until see DIET AFTER DISCHARGE: Cardiac Wound/Incision Care: Keep wound/cast CDI, Change dressing CHECKS AFTER DISCHARGE: Checks after discharge: Check blood press - daily, Check your Temp as needed FOLLOW-UP: Follow up with: Cardiology as needed Follow Up With: PCP in 1-2 weeks post discharge from SNU TREATMENT/EQUIPMENT ORDERS: Adaptive Equipment Issued: None CERTIFICATION STATEMENT: Certification Statement: Certification Statement: Based on the above finding, I certify that this patient is confined to the home and needs intermittent care home care, physical therapy and/or speech therapy, or continues to need occupational therapy.~ This patient is under my care, and I have initiated the establishment of the plan of care.~ This patient will be followed by myself or a community physician who will periodically review the plan of care. Home Meds Reported Medications Diltiazem Hcl (DILTIAZEM 24HR CD) 180 Mg Cap.er.24h, 1 CAP PO DAILY for afib, #30 CAP 5 Refills 08/14/19 Furosemide (FUROSEMIDE) 40 Mg Tablet, 40 MG PO DAILY for CHF, TAB 08/14/19 Prednisone (PREDNISONE) 20 Mg Tablet, 30 MG PO DAILY for steroid taper for COPD, TAB Take 30mg daily x2 days, take 20mg daily x2 days, take 10mg x2 days, stop after 6 days. 08/14/19 Pantoprazole Sodium (PROTONIX) 20 Mg Tablet.dr, 20 MG PO DAILY for gerd 08/07/19 Bimatoprost (LUMIGAN) 2.5 Ml Drops, 1 DROP EACHEYE QHS for Glaucoma, #2.5 ML 3 Refills 07/02/19 Aspirin (ASPIRIN) 81 Mg Tab.chew, 81 MG PO DAILY for Antiplatlet, TAB.CHEW 06/27/19 Simvastatin (SIMVASTATIN) 80 Mg Tablet, 80 MG PO HS for FOR CHOLESTEROL, #30 TAB 0 Refills 04/14/17 Calcium Carb & Cit/Vitamin D3 (CITRACAL + D ER TABLET) 1 Each Tablet.er, 1 EACH PO DAILY for Suplement, TAB.SR 04/14/17 Brimonidine Tartrate (ALPHAGAN P) 5 Ml Drops, 1 DROP OS BID for Gaucoma, #15 ML 3 Refills 04/14/17 Raloxifene Hcl (EVISTA) 60 Mg Tablet, 60 MG PO DAILY, TAB 04/14/17 Amlodipine Besylate (AMLODIPINE BESYLATE) 10 Mg Tablet, 10 MG PO DAILY for HTN, TAB 04/14/17 LAURA ARCE III DO Aug 16, 2019 09:23
--- NOTE | 2019-08-16 09:38 | PDOC ---
[facility] [facility] PROGRESS NOTE Chief Complaint Chief Complaint Acute hypoxic respiratory failure Acute on chronic diastolic heart failure. Bilateral pleural effusion and interstitial markings consistent with congestive heart failure. COPD - possible severe CKD Tobacco use disorder History of Present Illness History of Present Illness 08/16/19 Pt seen and examined Pt remains anxious to get out of the hospital. She denied transition of care to [place]. She wants to go to [facility] but after talking to SS they are unlikely to take her. Plan is to discharge home with home health. Good appetite and was sitting up. KERMIT RN and SS 08/15/19 Pt was seen and examined Pt was in a pleasant mood today. We discussed her transition of care to [facility]. She is happy with these plans and is ready to finally be discharged. KERMIT RN 08/14/19 Pt was examined at bedside Continues to be frustrated and angry with the staff Wants to go home 08/13/19 Very frustrating meeting for me today, patient was abusive verbally to PT and OT and nursing. She was upset about not improvement, and was upset about how long things are taking to "get done" around here. She has a new laceration on her leg from the line of the george catheter, and she still refuses to have her george removed until she talks to Dr. Mckeon. I discussed her weakness, and her hypoxia and her lack of improvement, she refused a bath or shower yesterday and she is malodorous; she has refused PT and is angry and frustrated with staff, and wants to go home. I offered Hospice, and she was angry and proceeded to tell me what Hospice was about, and talk to me like I really have no medical training whatsoever. I have recommended hospice and palliative care. Vitals/I&O Vitals/I&O: Vital Signs Date Time Temp Pulse Resp B/P (MAP) Pulse Ox O2 Delivery O2 Flow Rate FiO2 08/16/19 08:28 73 121/64 08/16/19 07:58 94 Nasal Cannula 1.0 08/16/19 03:00 97.5 20 97.5 I & O 08/15/19 08/15/19 08/16/19 15:00 23:00 07:00 Output Total 1000 ml Balance -1000 ml Physical Exam Physical Exam: VITALS: Within normal limits and are stable. GENERAL: No apparent distress. Alert and oriented. HEENT: Head is normocephalic, atraumatic, pupils were equally round and reactive to light and accommodation. NECK: Supple, no JVD, no thyromegaly was noted. LUNGS: Clear to auscultation in all lung armstrong without rhonchi or wheezing. She has diffuse crackles. HEART: RRR, S1, S2 present. Peripheral pulses intact. She has systolic ejection murmur, intermittently tachycardic. ABDOMEN: Soft, nontender. Positive bowel sounds no organomegaly, normal bowel sounds. EXTREMITIES: Without any cyanosis, clubbing, or edema. Pedal pulses intact, Homans sign is negative. NEUROLOGIC: Normal speech, normal tone. A & O x3, moves all extremities, no obvious focal deficits. She is extremely weak. PSYCHIATRIC: She is depressed. SKIN: No ulcerations or rashes, good skin turgor, no jaundice. VASCULAR: Good capillary refill, neurovascular bundle appears to be intact. General: Alert, Oriented X3, Cooperative, No acute distress Heart: Regular rate (SR with WAP), No murmurs, Other (4/6 systolic murmur to MARTELL border; diastolic murmur to apical region 5/6) Lungs: Other (decreased breath sounds) Abdomen: Soft, No tenderness Extremities: No cyanosis, Other (2-3+ bilateral LE pitting edema) Skin: No breakdown, No significant lesion Assessment and Plan Assessmemt and Plan Problems Medical Problems: (1) Acute on chronic diastolic (congestive) heart failure Status: Acute (2) CAD (coronary artery disease) Status: Chronic (3) COPD (chronic obstructive pulmonary disease) Status: Chronic (4) HLD (hyperlipidemia) Status: Chronic (5) HTN (hypertension) Status: Chronic (6) PAD (peripheral artery disease) Status: Chronic (7) Respiratory failure Status: Acute Assessment Acute on chronic diastolic HF HTN Tobacco abuse CAD COPD PAD Plan Probable discharge with Home Health Cardiac monitoring PT/OT Continue home meds DVT prophylaxis Full code Comment Review of Relevant I have reviewed the following items emory (where applicable) has been applied. LAURA ARCE III, DO Aug 16, 2019 09:38
[2019-08-16 11:04] VITALS: BP 112/55
[2019-08-16 15:00] VITALS: BP 136/64
[2019-08-16] MEDS: ENOXAPARIN 40 MG/0.4 ML SYRINGE. SQ SCH (16:45)
[2019-08-16] MEDS ORDERED: POTA20TA82 PO (17:14)
[2019-08-16] MEDS ORDERED: ASCO500C9 PO (17:15)
[2019-08-16] MEDS ORDERED: ASCO500T3 PO (17:19)
[2019-08-16] MEDS ORDERED: MULT-735 PO (17:19)
[2019-08-16] MEDS ORDERED: PRED-220 PO (17:29)
--- NOTE | 2019-08-17 08:50 | DS ---
DATE OF DISCHARGE: 08/16/2019 ADMISSION DIAGNOSES: Respiratory failure (multifactorial including pulmonary edema, congestive heart failure, chronic obstructive pulmonary disease, possible pneumonia). DISCHARGE DIAGNOSIS: Resolving respiratory failure. HOSPITAL COURSE: The patient is a pleasant middle-aged female who basically has end-stage COPD. She also had heart failure. She was admitted. We diuresed her, gave her IV antibiotics, breathing treatments, steroids, and oxygen. Over the next few days, the patient improved. Yesterday, we saw her, examined her, she was at her baseline, we discharged home with home health. DISPOSITION: Home with home health. ACTIVITY: As tolerated. DIET: Low sodium. MEDICATIONS: Please see the MRAD. TOTAL TIME: 31 minutes. LAURA ARCE DO DR: KALIA/serafin JOB#: [id number] / [id number]
[2019-08-17] MEDS ORDERED: predniSONE 20 MG TABLET PO SCH (09:00)
[2019-08-19] MEDS ORDERED: predniSONE 10 MG TABLET PO SCH (09:00)
== END 2019-08-16 18:30 | disposition home health service (06) | DRG 291 ==
LOC: 1 WEST ICU 23:25 → 2 NORTH 08-08 16:59
PROVIDERS: ADMIT Internal Medicine; ATTEND Internal Medicine
PROC: 0W9B3ZZ Drainage of Left Pleural Cavity, Percutaneous Approach (ICD-10-PCS; principal; 2019-08-09)
PROC: 0W993ZZ Drainage of Right Pleural Cavity, Percutaneous Approach (ICD-10-PCS; 2019-08-09)
DX: I13.0 Hypertensive heart and chronic kidney disease with heart failure and stage 1 through stage 4 chronic kidney disease, or unspecified chronic kidney disease (principal); I50.43 Acute on chronic combined systolic (congestive) and diastolic (congestive) heart failure; J96.01 Acute respiratory failure with hypoxia; J96.21 Acute and chronic respiratory failure with hypoxia; E43 Unspecified severe protein-calorie malnutrition; J18.9 Pneumonia, unspecified organism; J44.1 Chronic obstructive pulmonary disease with (acute) exacerbation; J44.0 Chronic obstructive pulmonary disease with (acute) lower respiratory infection; J91.8 Pleural effusion in other conditions classified elsewhere; F17.200 Nicotine dependence, unspecified, uncomplicated; I73.9 Peripheral vascular disease, unspecified; I35.0 Nonrheumatic aortic (valve) stenosis; N18.3 Chronic kidney disease, stage 3 (moderate); Z51.5 Encounter for palliative care; H40.9 Unspecified glaucoma; R62.7 Adult failure to thrive; D64.9 Anemia, unspecified; I25.10 Atherosclerotic heart disease of native coronary artery without angina pectoris; E78.5 Hyperlipidemia, unspecified; M19.90 Unspecified osteoarthritis, unspecified site; M85.80 Other specified disorders of bone density and structure, unspecified site; Z91.19 Patient's noncompliance with other medical treatment and regimen; Z68.24 Body mass index [BMI] 24.0-24.9, adult; Z90.49 Acquired absence of other specified parts of digestive tract; Z95.820 Peripheral vascular angioplasty status with implants and grafts
CPT/HCPCS: 32555; 36415; 71045; 71250; 80048; 80053; 80061; 83615; 83735; 84157; 84443; 84484; 85007; 85025; 85027; 87071; 87075; 88112; 88305; 94640; 94760; 99406; J1650; J1940; J1956; J2920; J3010; J3475; J7512; J7620; 97110; 97116; 97530; 97535; G0378